=== PATIENT | male | born 1935 | race Caucasian/White ===

== ENCOUNTER 2017-11-15 13:24 | Inpatient (IN) ==
[2017-11-15] MEDS ORDERED: ALBUTEROL/IPRATROPIUM 2.5mg-0.5mg/3ml NEB IH ONE (13:35)
[2017-11-15] MEDS ORDERED: MORPHINE SULFATE 2mg INJECTION IVP ONE (13:44)
[2017-11-15] MEDS: SALINE FLUSH 10ml SYRINGE IVF PRN ×2 (14:01→21:52)
[2017-11-15] MEDS ORDERED: SALINE FLUSH 10ml SYRINGE ONE (14:03)
[2017-11-15] MEDS ORDERED: IOHEXOL 350mg/ml 75ml INJECTION ONE (14:03)
--- OUTSIDE RECORDS SUMMARY | 2017-11-15 14:20 | External Medical Summary | Referral Summary ---
:1935 Author Organization [facility] Address [address] [facility] [address] [place] [address] Care Team Providers Name Role Phone AndreaDavid james Dominik Primary Care Physician Emir Chew Primary Care Physician Encounter VC Date(s): 08/23/17 - 08/23/17 [facility] [address] [facility], [facility] [address] [place] [address] Discharge Disposition: 01-Home or Self Care Attending Physician: Mandy Garcia APRN Admitting Physician: Mandy Garcia APRN Problem List Condition Effective Dates Status Health Status Informant Acute pain(Confirmed) Active At risk of pressure sore(Confirmed) Active Atrial fibrillation(Confirmed) Active Bleeding precautions(Confirmed)1 Active Chronic obstructive pulmonary Active disease (COPD)(Confirmed) CHF (congestive heart Active patient failure)(Confirmed) Fluid imbalance(Confirmed)2 Active Impaired gas exchange(Confirmed)3 Active Knowledge deficit(Confirmed)4 Active Colon cancer, stage III(Confirmed) Resolved Obesity(Confirmed) Active patient Prostate cancer - radiation therapy Resolved & lupron(Confirmed) TIA (transient ischemic Active patient attack)(Confirmed) 1Problem added automatically by system based on initiation of Bleeding Precautions Plan of [id number] added automatically by system based on initiation of Fluid Volume Imbalance Plan of [id number] added automatically by system based on initiation of Impaired Gas Exchange Plan of [id number] added automatically by system based on initiation of Knowledge Deficit Plan of Care Allergies, Adverse Reactions, Alerts Substance Reaction Severity Status cefadroxil Active glycerin Active mineral oil Active Benzalkonium Chloride Active Petroleum Jelly Active Shark Oil Active Pramoxine Hydrochloride Active Phenylephrine HCl Active Medications Advair Diskus 500 mcg-50 mcg inhalation powder 1 puffs, Inhalation, BID, # 28 Each, 1 Refill(s), Pharmacy: [id number] Start Date: 09/06/16 Status: Orderedamoxicillin 500 mg oral capsule 500 mg 1 caps, Oral, TIDWM, X 7 days, # 21 caps, 0 Refill(s) Start Date: 08/21/17 Stop Date: 08/28/17 Status: Orderedaspirin 81 mg oral delayed release tablet 81 mg 1 tabs, Oral, Daily, # 30 tabs, 0 Refill(s), other reason (Rx) Start Date: 08/21/17 Status: Orderedbumetanide 1 mg oral tablet 1 mg 1 tabs, Oral, BID, # 60 tabs, 0 Refill(s) Start Date: 08/21/17 Status: Ordereddocusate sodium 100 mg oral capsule 100 mg 1 caps, Oral, BID, as needed for constipation, 0 Refill(s) Start Date: 08/20/17 Status: OrderedFlomax 0.4 mg oral capsule 0.4 mg 1 caps, Oral, Daily, # 30 caps, 0 Refill(s) Start Date: 08/21/17 Status: Orderedloratadine 10 mg oral tablet 10 mg 1 tabs, Oral, Daily, 0 Refill(s) Start Date: 08/13/17 Status: OrderedMiraLax 17 g 1 packets, Oral, Daily, 0 Refill(s) Start Date: 08/20/17 Status: Orderedmultivitamin 1, Oral, Daily, 0 Refill(s) Start Date: 09/06/16 Status: Orderedpantoprazole 40 mg oral delayed release tablet 40 mg 1 tabs, Oral, BID Start Date: 08/13/17 Status: OrderedProAir HFA 90 mcg/inh inhalation aerosol 2 puffs, Inhalation, QID, as needed for wheezing Start Date: 08/13/17 Status: Orderedsenna 8.6 mg oral tablet 8.6 mg 1 tabs, Oral, BID, as needed for constipation, 0 Refill(s) Start Date: 08/20/17 Status: OrderedSpiriva 18 mcg inhalation capsule 18 mcg 1 caps, Inhalation, Daily Start Date: 08/13/17 Status: OrderedTylenol Extra Strength 500 mg oral tablet 500 mg 1 tabs, Oral, qAM, 0 Refill(s) Start Date: 08/13/17 Status: OrderedVitamin B12 1,000 mcg, Oral, Daily, 0 Refill(s) Start Date: 09/06/16 Status: OrderedVitamin C 250 mg oral tablet 250 mg 1 tabs, Oral, Daily, 0 Refill(s) Start Date: 09/06/16 Status: Orderedwarfarin 5 mg oral tablet 5 mg 1 tabs, Oral, Daily, 0 Refill(s) Start Date: 08/13/17 Status: Ordered Immunizations Given and Recorded Vaccine Date Status Refusal Reason influenza virus vaccine, inactivated 07/25/15 Given tetanus/diphth/pertuss (Tdap) adult/adol 11/27/12 Recorded Procedures Procedure Date Related Diagnosis Body Site Status Influenza1 2014 Completed Laparoscopic right hemicolectomy 12/25/12 Completed Colonoscopy2 07/24/12 Completed Deep vein thrombosis3 2004 Completed Herniorrhaphy 2002 Completed Prostate biopsy sample4 2002 Completed Bilateral Cataract extraction1988 Completed Vasectomy 1975 Completed Herniorrhaphy 1974 Completed Tonsillectomy 1964 Completed Colonoscopy, EGD Completed Incisional hernia, small bowel Completed resection Lipoma biopsy sample6 Completed 1Hospitalization for influenza and COPD exacerbation and Escherichia coli urinary tract infection.2Jmark Pedersen MD3Hospitalized for treatment.4Prostate cancer. He then received radiation therapy and Lupron [id number] 2 lipomas removed in the past. Social History Social History Type Response Smoking Status Current every day smoker; Type: Cigarettes; Tobacco use per day : 1 Pack entered on: 09/20/16 Assessment and Plan Extracted from: Title: HF - In-home services Author: Anaid Duque [facility] [place]: 08/23/17 Met with Morgan and his daughter Shayna. Shayna has been paying for a public policy professor b/c they did not know he had coverage with his insurance. He receives $721 in SS and $46 in SSI. He does not have any other income. He has no pets and needs assistance with all ADLS. He said it take him 30 mins to put on each sock. Referral made to [facility] Act and HCBS - Frail and Elderly Waiver. Morgan was frustrated that no one had ever told him that he could qualify for services. Called his daughter- Shayna [phone] and left a message letting her know that the referral was placed to both programs.
--- OUTSIDE RECORDS SUMMARY | 2017-11-15 14:20 | External Medical Summary | Referral Summary ---
:1935 Author Organization [facility] Address [address] [place] [address] Care Team Providers Name Role Phone David Montoya V Primary Care Physician Encounter VC Date(s): 11/21/16 - 11/21/16 [facility] [address] [place] [address] [place] Discharge Diagnosis: Lower urinary tract symptoms (LUTS) Discharge Disposition: 01-Home or Self Care Attending Physician: Juan Chase MD Admitting Physician: Juan Chase MD Vital Signs Most recent to oldest [Reference Range]: 1 Peripheral Pulse Rate [60-100 bpm] 84 bpm (11/21/16 2:36 PM) Blood Pressure [90-140/60-90 mmHg] 140/80 mmHg (11/21/16 2:36 PM) Problem List Condition Effective Dates Status Health Status Informant At risk of pressure sore(Confirmed) Active Atrial fibrillation(Confirmed) Active Bleeding precautions(Confirmed)1 Active Chronic obstructive pulmonary Active disease (COPD)(Confirmed) Fluid imbalance(Confirmed)2 Active Impaired gas exchange(Confirmed)3 Active Colon cancer, stage III(Confirmed) Resolved Obesity(Confirmed) Active patient Prostate cancer - radiation therapy Resolved & lupron(Confirmed) 1Problem added automatically by system based on initiation of Bleeding Precautions Plan of [id number] added automatically by system based on initiation of Fluid Volume Imbalance Plan of [id number] added automatically by system based on initiation of Impaired Gas Exchange Plan of Care Allergies, Adverse Reactions, Alerts Substance Reaction Severity Status Benzalkonium Chloride Active cefadroxil Active glycerin Active mineral oil Active Petroleum Jelly Active Phenylephrine HCl Active Pramoxine Hydrochloride Active Shark Oil Active Medications Advair Diskus 500 mcg-50 mcg inhalation powder 1 puffs, Inhalation, BID, # 28 Each, 1 Refill(s), Pharmacy: [id number] Start Date: 09/06/16 Status: OrderedamLODIPine 5 mg oral tablet See Instructions, TAKE 1 TABLET BY MOUTH DAILY, # 90 tabs, eRx: [id number] Start Date: 09/28/16 Status: Orderedaspirin-dipyridamole 25 mg-200 mg oral capsule, extended release See Instructions, TAKE 1 CAPSULE BY MOUTH TWICE DAILY( EVERY TWELVE HOURS), # 180 caps, 1 Refill(s),eRx: [id number] Start Date: 10/23/16 Status: Orderedcyanocobalamin 1000 mcg/mL injectable solution 1,000 mcg 1 mL, IntraMuscular, qMonth, # 13 mL, 0 Refill(s) Start Date: 08/04/15 Stop Date: 08/03/16 Status: Orderedfolic acid 1 mg oral tablet 1 mg 1 tabs, Oral, Daily, # 30 tabs, 0 Refill(s), Pharmacy: [facility] [id number], 1 tabs Oral Daily Start Date: 07/29/15 Status: Orderedmultivitamin 1, Oral, Daily, 0 Refill(s) Start Date: 09/06/16 Status: Orderedpantoprazole 40 mg oral delayed release tablet See Instructions, TAKE 1 TABLET BY MOUTH TWICE DAILY, # 180 tabs, eRx: [id number] Start Date: 08/23/16 Status: OrderedProAir HFA 90 mcg/inh inhalation aerosol See Instructions, INHALE 2 PUFFS INTO LUNGS FOUR TIMES DAILY NEEDED FOR WHEEZING, # 34 g, 2 Refill(s), eRx: [facility] [id number], INHALE 2 PUFFS INTO LUNGS FOUR TIMES DAILY NEEDED FOR WHEEZING Start Date: 01/31/16 Status: OrderedSpiriva 18 mcg inhalation capsule See Instructions, USE ONE INHALATION BY MOUTH EVERY DAY, # 30 caps, eRx: [facility] [id number] Start Date: 09/28/16 Status: OrderedVitamin B12 1,000 mcg, Oral, Daily, 0 Refill(s) Start Date: 09/06/16 Status: OrderedVitamin C 250 mg oral tablet 250 mg 1 tabs, Oral, Daily, 0 Refill(s) Start Date: 09/06/16 Status: Orderedwarfarin 5 mg oral tablet See Instructions, TAKE 1 TABLET BY MOUTH FIVE DAYS PER WEEK THEN TAKE 1& 1/ 2 TABLETS THE OTHER 2DAYS, # 90 tabs, 3 Refill(s), Pharmacy: [id number], TAKE 1 TABLET BY MOUTH FIVE DAYSPER WEEK THEN TAKE 1& 1/2 TABLETS THE OTHER 2 DAYS Start Date: 08/29/16 Status: Ordered Results No data available for this section Immunizations Given and Recorded Vaccine Date Status Refusal Reason tetanus/diphth/pertuss (Tdap) adult/adol 11/27/12 Recorded influenza virus vaccine, inactivated 07/25/15 Given Procedures Procedure Date Related Diagnosis Body Site Influenza1 2014 Laparoscopic right hemicolectomy 12/25/12 Colonoscopy 07/24/12 Deep vein thrombosis2 2004 Herniorrhaphy 2002 Prostate biopsy sample3 2002 Bilateral Cataract extraction4 1988 Vasectomy 1975 Herniorrhaphy 1974 Tonsillectomy 1964 Colonoscopy, EGD Incisional hernia, small bowel resection Lipoma biopsy sample5 1Hospitalization for influenza and COPD exacerbation and Escherichia coli urinary tract infection.2Hospitalized for treatment.3Prostate cancer. He then received radiation therapy and Lupron [id number] 2 lipomas removed in the past. Social History Social History Type Response Smoking Status Current every day smoker; Type: Cigarettes; Tobacco use per day : 1 Pack Assessment and Plan Extracted from: Title: Office Visit Note Author: Juan Chase MD Date: 11/21/16 Assessment/Plan 81 yo M with ahx of prostate cancer, LUTS possibly secondary to urethral stricture and hematuria. 1.Lower urinary tract symptoms (LUTS) Patient declined cystoscopy for hematuria work up. PVR is 0 mls. F/u in 6 months for PVR.
--- OUTSIDE RECORDS SUMMARY | 2017-11-15 14:20 | External Medical Summary | Clinical Summary ---
:1935 Author Organization [facility] Address [address] [place] [address] Care Team Providers Name Role Phone Unavailable Primary Care Provider Unavailable Allergies Active Allergy Reactions Severity Noted Date Comments Cefadroxil Monohydrate Swelling DURICEF Current Medications Prescription Sig. Disp. Refills Start Date End Date Status lisinopril One orally daily 90 1 05/31/2010 Active (PRINIVIL,ZESTRIL) 20 MG tablet dipyridamole-aspirin One orally twice 180 0 01/03/2011 Active (AGGRENOX) 25-200 MG daily per 12 hr capsule tiotropium (SPIRIVA inhale 1 capsule 1 6 02/18/2010 Active HANDIHALER) 18 MCG (18MCG) by inhalation capsule INHALATION route every day fluticasone-salmeterol inhale 1 puff by 1 6 03/30/2010 Active (ADVAIR DISKUS) 250-50 INHALATION route 2 MCG/DOSE AEPB times every day albuterol (PROAIR HFA) inhale 2 puff by 1 2 06/28/2010 Active 108 (90 BASE) MCG/ACT inhalation route 4 inhaler times every day as needed for shortness of breath .reconcile (MEDICATION No Sig 1 0 10/18/2012 Active LIST IMPORTED) Active Problems Not on file Immunizations Name Dates Previously Given Next Due Influenza IIV3 PFree 02/28/2010 Family History Medical History Relation Name Comments Other Other Mother - Cause of :Diabetes (Type II) Other Other Father - Cause of :Cancer, lung Relation Name Status Comments Father (Age 75) Mother (Age 85) Other Other Social History Tobacco Use Types Packs/Day Years Used Date Current Every Day Smoker Comments: Smoking History Packs/day: Unknown/Cigarettes/2 packs Sex Assigned at Date Recorded Not on file Last Filed Vital Signs Vital Sign Reading Time Taken Blood Pressure 130/80 02/28/2010 10:46 AM CDT Pulse - - Temperature - - Respiratory Rate - - Oxygen Saturation - - Inhaled Oxygen Concentration - - Weight 120.2 kg (265 lb) 02/28/2010 10:46 AM CDT Height - - Body Mass Index - - Plan of Treatment Health Maintenance Due Date Last Done Comments DTaP,Tdap,and Td Vaccines (1 - Tdap) 1954 Zoster Recombinant Vaccine (RZV,Shingrix) (1 of 2 - 1985 [facility] 2 Dose Standard) Pneumo-Adult (1 of 2 - PCV13) 2000 Influenza Vaccine (#1) 2017 02/28/2010 Results Not on filefrom Last 3 Months
--- OUTSIDE RECORDS SUMMARY | 2017-11-15 14:20 | External Medical Summary | Referral Summary ---
:1935 Author Organization [facility] Address [address] [facility] [address] [place] [address] Encounter VC Date(s): 10/23/17 - 10/23/17 [facility] [address] [facility] [address] [place] [address] Discharge Disposition: 01-Home or Self Care Attending Physician: Mandy Garcia APRN Admitting Physician: Mandy Garcia APRN Vital Signs Most recent to oldest [Reference Range]: 1 Apical Heart Rate [60-100 bpm] 85 bpm (10/23/17 1:36 PM) Respiratory Rate [14-20 br/min] 18 br/min (10/23/17 1:36 PM) Blood Pressure [90-140/60-90 mmHg] 85/51 mmHg *LOW* (10/23/17 1:36 PM) SpO2 94 % (10/23/17 1:36 PM) Problem List Condition Effective Dates Status [...] on initiation of Bleeding Precautions Plan of [id number] added automatically by system based on initiation of Fluid Volume Imbalance Plan of [id number] added automatically by system based on initiation of Impaired Gas Exchange Plan of [id number] added automatically by system based on initiation of Knowledge Deficit Plan of Care Allergies, Adverse Reactions, Alerts Substance Reaction Severity Status cefadroxil Active glycerin Active mineral oil Active Benzalkonium Chloride Active Petroleum Jelly Active Shark Oil Active Pramoxine Hydrochloride Active Phenylephrine HCl Active Medications Advair Diskus 500 mcg-50 mcg inhalation powder 1 puffs, Inhalation, BID, # 28 Each, 1 Refill(s), Pharmacy: [id number] Start Date: 09/06/16 Status: Orderedaspirin 81 mg oral delayed release [...] He then received radiation therapy and Lupron [id number] 2 lipomas removed in the past. Social History Social History Type Response Smoking Status Current every day smoker; Type: Cigarettes; Tobacco use per day : 1 Pack entered on: 09/20/16 Assessment and Plan Extracted from: Title: HF- DME Author: Anaid Duque [facility] [place] Date: 10/23/17 Received request from [employer] to look into a toilet seat riser with handles and a grabber. Morgan uses [facility] for his resp. needs. Called [facility] and spoke with Dinorah. She confirmed that toilet seat risers and grabbers are not covered by Medicare/ Medicaid. Toilet seat risers is $60.20 and the grabber for a 26" is $20.65 and 32" is $ 21.85. Called both [employer] and [employer] to see if they have one available. Left a message at both agencies. Told Elpidio- will call him once we hear back from the medical loan facilities. He said that he priced one at [employer] for the seat riser that was $50.
--- OUTSIDE RECORDS SUMMARY | 2017-11-15 14:20 | External Medical Summary | Referral Summary ---
:1935 Author Organization [facility] Address [address] [place] [address] [place] [address] Care Team Providers Name Role Phone David Montoya V Primary Care Physician Encounter VC Date(s): 09/20/16 - 09/20/16 [facility] [address] [place] [address] [place] [address] [place] Discharge Diagnosis: Hematuria Discharge Diagnosis: Urethral stricture Discharge Disposition: 01-Home or Self Care Attending Physician: Juan Chase MD Admitting Physician: Juan Chase MD Vital Signs Most recent to oldest [Reference Range]: 1 Blood Pressure [90-140/60-90 mmHg] 136/78 mmHg (09/20/16 2:52 PM) Problem List Condition Effective Dates Status [...] on initiation of Bleeding Precautions Plan of [id number] added automatically by system based on initiation of Fluid Volume Imbalance Plan of [id number] added automatically by system based on initiation of Impaired Gas Exchange Plan of Care Allergies, Adverse Reactions, Alerts Substance Reaction Severity Status Benzalkonium Chloride Active cefadroxil Active glycerin Active mineral oil Active Petroleum Jelly Active Phenylephrine HCl Active Pramoxine Hydrochloride Active Shark Oil Active Medications Advair Diskus 500 mcg-50 mcg inhalation powder 1 puffs, Inhalation, BID, # 28 Each, 1 Refill(s), Pharmacy: [facility] [id number] Start Date: 09/06/16 Status: OrderedamLODIPine 5 mg oral tablet See Instructions, TAKE 1 TABLET BY MOUTH DAILY, # 90 tabs, 1 Refill(s), eRx: [facility] [id number] Start Date: 04/10/16 Status: Orderedaspirin-dipyridamole 25 mg-200 mg oral capsule, extended release See Instructions, TAKE 1 CAPSULE BY MOUTH TWICE DAILY( EVERY TWELVE HOURS), # 180 caps, 2 Refill(s),eRx: [facility] [id number], TAKE 1 CAPSULE BY MOUTH TWICE DAILY( EVERY TWELVE HOURS) Start Date: 01/31/16 Status: Orderedcyanocobalamin 1000 mcg/mL injectable solution 1,000 mcg 1 mL, IntraMuscular, qMonth, # 13 mL, 0 Refill(s) Start Date: 08/04/15 Stop Date: 08/03/16 Status: Ordereddoxycycline hyclate 100 mg oral tablet 100 mg 1 tabs, Oral, BID, # 20 tabs, 0 Refill(s), Pharmacy: [facility] [id number], 1 tabs Oral BID Start Date: 09/08/16 Stop Date: 10/09/16 Status: Orderedfolic acid 1 mg oral tablet 1 mg 1 tabs, Oral, Daily, # 30 tabs, 0 Refill(s), Pharmacy: [facility] [id number], 1 tabs Oral Daily Start Date: 07/29/15 Status: Orderedmultivitamin 1, Oral, Daily, 0 Refill(s) Start Date: 09/06/16 Status: Orderedpantoprazole 40 mg oral delayed release tablet See Instructions, TAKE 1 TABLET BY MOUTH TWICE DAILY, # 180 tabs, eRx: [facility] [id number] Start Date: 08/23/16 Status: OrderedProAir HFA 90 mcg/inh inhalation aerosol See Instructions, INHALE 2 PUFFS INTO LUNGS FOUR TIMES DAILY NEEDED FOR WHEEZING, # 34 g, 2 Refill(s), eRx: [facility] [id number], INHALE 2 PUFFS INTO LUNGS FOUR TIMES DAILY NEEDED FOR WHEEZING Start Date: 01/31/16 Status: OrderedSpiriva 18 mcg inhalation capsule See Instructions, USE ONE INHALATION BY MOUTH EVERY DAY, # 30 caps, eRx: [facility] [id number] Start Date: 07/27/16 Status: OrderedVitamin B12 1,000 mcg, Oral, Daily, 0 Refill(s) Start Date: 09/06/16 Status: OrderedVitamin C 250 mg oral tablet 250 mg 1 tabs, Oral, Daily, 0 Refill(s) Start Date: 09/06/16 Status: Orderedwarfarin 5 mg oral tablet See Instructions, TAKE 1 TABLET BY MOUTH FIVE DAYS PER WEEK THEN TAKE 1& 1/ 2 TABLETS THE OTHER 2DAYS, # 90 tabs, 3 Refill(s), Pharmacy: [id number], TAKE 1 TABLET BY MOUTH FIVE DAYSPER [...] He then received radiation therapy and Lupron [id number] 2 lipomas removed in the past. Social History Social History Type Response Smoking Status Current every day smoker; Type: Cigarettes; Tobacco use per day : 1 Pack Assessment and Plan Extracted from: Title: Office Visit Note Author: Juan Chase MD Date: 09/20/16 Assessment/Plan 81 yo M with multiple medical issues. Has hx of prostate cancer, LUTS possibly secondary to urethral stricture and hematuria. 1.Hematuria Will order hematuria work up including Urine analysis and culture to rule out UTI. Urine cytology to evaluate for malignancy CT renal colic to evaluate upper tracts. Will schedule patient for cystoscopy tovisualize bladder. Ordered: CT Renal Colic Pathology Non-Medical Malpractice Paralegal Cytology Order Urinalysis Microscopic Urine Culture 2.Urethral stricture Will obtain CT scan to eval for hydronephrosis Will schedule patient for cystoscopy to eval for urethral stricture or possible bladder neck contracture. Ordered: CT Renal Colic Pathology Non-Medical Malpractice Paralegal Cytology Order Urinalysis Microscopic Urine Culture
--- OUTSIDE RECORDS SUMMARY | 2017-11-15 14:20 | External Medical Summary | Referral Summary ---
:1935 Author Organization [facility] Address [address] [place] [address] Care Team Providers Name Role Phone David Montoya V Primary Care Physician Emir Chew Primary Care Physician Encounter [facility] [id number] Date(s): 08/13/17 - 08/22/17 [facility] [address] [place] [address] [place] Discharge Disposition: 01-Home or Self Care Attending Physician: Brayan Ram MD Admitting Physician: May Noriega MD Vital Signs Most recent to oldest [Reference Range]: 1 Temperature Oral [35.8-37.3 degC] 36.7 degC (08/22/17 11:02 AM) Temperature Temporal Artery [36.3-37.8 degC] 36.5 degC (08/16/17 12:00 PM) Peripheral Pulse Rate [60-100 bpm] 79 bpm (08/22/17 11:02 AM) Heart Rate Monitored [60-100 bpm] 81 bpm (08/21/17 8:16 PM) Respiratory Rate [14-20 br/min] 20 br/min (08/22/17 12:51 PM) Blood Pressure [90-140/60-90 mmHg] 97/59 mmHg (08/22/17 11:02 AM) Mean Arterial Pressure, Cuff 84 mmHg (08/17/17 8:45 PM) Pulse Rate [60-100 bpm] 92 bpm (08/22/17 12:40 PM) SpO2 96 % (08/22/17 11:02 AM) Remote Telemetry Ongoing (08/22/17 9:00 AM) Problem List Condition Effective Dates Status Health [...] on initiation of Bleeding Precautions Plan of [id number] added automatically by system based on initiation of Fluid Volume Imbalance Plan of [id number] added automatically by system based on initiation of Impaired Gas Exchange Plan of [id number] added automatically by system based on initiation of Knowledge Deficit Plan of Care Allergies, Adverse Reactions, Alerts Substance Reaction Severity Status cefadroxil Active glycerin Active mineral oil Active Benzalkonium Chloride Active Petroleum Jelly Active Shark Oil Active Pramoxine Hydrochloride Active Phenylephrine HCl Active Medications Advair Diskus 500 mcg-50 mcg inhalation powder 1 puffs, Inhalation, BID, # 28 Each, 1 Refill(s), Pharmacy: [id number] Start Date: 09/06/16 Status: Orderedamoxicillin 500 mg [...] 0 Refill(s) Start Date: 08/13/17 Status: Ordered Results Blood Gases Most recent to oldest [Reference Range]: 1 pH [7.35-7.45] 7.42 (08/20/17 1:15 PM) pCO2 Art [35-45 mmHg] 64 mmHg *HHI* (08/20/17 1:15 PM) pO2 Art [80-100 mmHg] 84 mmHg (08/20/17 1:15 PM) Bicarbonate [22-26 mEq/L] 41 mEq/L *HI* (08/20/17 1:15 PM) Base Excess Art [0-2] 14 *HI* (08/20/17 1:15 PM) O2 Sat Art [90.0-97.0 %] 96.9 % (08/20/17 1:15 PM) LPM Art 3.00 L/min (08/20/17 1:15 PM) O2 Panel SEE BELOW 1 (08/20/17 1:15 PM) PIP 15 (08/14/17 9:34 AM) Set Rate 14 br/min (08/14/17 9:34 AM) FiO2 Art [0-100] 45 (08/14/17 9:34 AM) EPAP 5 (08/14/17 9:34 AM) 1Result Comment: High Flow Nasal CannulaHematology Most recent to oldest [Reference Range]: 1 WBC [4.8-10.8 10*3/uL] 7.0 10*3/uL (08/22/17 4:53 AM) RBC [4.60-6.20] 3.51 *LOW* (08/22/17 4:53 AM) Hgb [14.0-18.0 gm/dL] 9.5 gm/dL *LOW* (08/22/17 4:53 AM) Hct [42.0-52.0 %] 30.7 % *LOW* (08/22/17 4:53 AM) MCV [82.0-99.0 fL] 87.5 fL (08/22/17 4:53 AM) MCH [27.0-32.0 pg] 27.1 pg (08/22/17 4:53 AM) MCHC [32.0-36.0 gm/dL] 30.9 gm/dL *LOW* (08/22/17 4:53 AM) RDW [11.5-14.5 %] 14.3 % (08/22/17 4:53 AM) Platelet [150-400 10*3/uL] 207 10*3/uL (08/22/17 4:53 AM) MPV [9.4-12.3 fL] 10.3 fL (08/22/17 4:53 AM) Immature Granulocytes [0.0-1.0 %] 0.5 % (08/21/17 4:52 AM) Neutrophils [51-75 %] 71 % (08/21/17 4:52 AM) Lymphocytes [20-46 %] 10 % *LOW* (08/21/17 4:52 AM) Monocytes [4-11 %] 17 % *HI* (08/21/17 4:52 AM) Eosinophils [0-4 %] 2 % (08/21/17 4:52 AM) Basophils [0-2 %] 0 % (08/21/17 4:52 AM) Neutro Absolute [1.90-7.00] 5.29 (08/21/17 4:52 AM) Lymph Absolute [0.80-3.30] 0.71 *LOW* (08/21/17 4:52 AM) [place] Absolute [0.30-1.00] 1.29 *HI* (08/21/17 4:52 AM) Eos Absolute [0.00-0.50] 0.16 (08/21/17 4:52 AM) Baso Absolute [0.00-0.20] 0.01 (08/21/17 4:52 AM) Nucleated RBC Automated [0 /100 WBC] 0.0 /100 WBC (08/21/17 4:52 AM) Coagulation Most recent to oldest [Reference Range]: 1 INR [0.9-1.2] 2.2 *HI* (08/22/17 4:52 AM) Chemistry Most recent to oldest [Reference Range]: 1 Sodium Lvl [136-144 mEq/L] 140 mEq/L (08/22/17 4:53 AM) Potassium Lvl [3.6-5.1 mEq/L] 3.9 mEq/L (08/22/17 4:53 AM) Chloride [99-109 mEq/L] 96 mEq/L *LOW* (08/22/17 4:53 AM) CO2 [22-32 mEq/L] 37 mEq/L *HI* (08/22/17 4:53 AM) AGAP [3-20 mEq/L] 7 mEq/L (08/22/17 4:53 AM) BUN [4-20 mg/dL] 30 mg/dL *HI* (08/22/17 4:53 AM) Glucose Lvl [70-100 mg/dL] 101 mg/dL *HI* (08/22/17 4:53 AM) Creatinine Lvl [0.64-1.27 mg/dL] 1.60 mg/dL *HI* (08/22/17 4:53 AM) eGFR [>60 mL/min] 42 mL/min 1 *ABN* (08/22/17 4:53 AM) Calcium Lvl [8.6-10.0 mg/dL] 8.3 mg/dL *LOW* (08/22/17 4:53 AM) Albumin Lvl [3.5-4.8 gm/dL] 2.6 gm/dL *LOW* (08/21/17 4:52 AM) Total Protein [6.1-7.9 gm/dL] 5.4 gm/dL *LOW* (08/15/17 12:02 PM) Globulin [1.9-4.3 gm/dL] 2.4 gm/dL (08/13/17 7:35 PM) ALT [17-63 U/L] 11 U/L *LOW* (08/13/17 7:35 PM) AST [15-41 U/L] 16 U/L (08/13/17 7:35 PM) Alk Phos [26-104 U/L] 47 U/L (08/13/17 7:35 PM) Bili Total [0.2-1.2 mg/dL] 0.5 mg/dL 2 (08/13/17 7:35 PM) Magnesium Lvl [1.8-2.5 mg/dL] 1.6 mg/dL *LOW* (08/22/17 4:53 AM) Phosphorus [2.4-4.7 mg/dL] 3.8 mg/dL 3 (08/21/17 4:52 AM) BNP [0-99 pg/mL] 300 pg/mL *HI* (08/13/17 7:35 PM) Troponin [<0.06 ng/mL] <0.05 ng/mL (08/13/17 7:35 PM) TSH with Reflex Free T4 [0.35-5.50 mcIU/mL] 1.17 mcIU/mL (08/15/17 4:37 AM) 1Result Comment: Multiply eGFR results by 1.21 for race.2Result Comment: Naproxen, specifically the metabolite O-desmethylnaproxen, may cause spurious elevation in Total Bilirubin levels.3Result Comment: High dosages of liposomal Amphotericin B (AmBisome) therapy or other drug preparations that use a liposomal envelope to facilitate drug delivery may cause falsely elevated results for phosphorus.Urinalysis Most recent to oldest [Reference Range]: 1 UA Color Yellow (08/21/17 4:13 AM) UA Appear Clear (08/21/17 4:13 AM) UA pH [5.0-8.0] 6.0 (08/21/17 4:13 AM) UA Leuk Est [Negative] Trace *ABN* (08/21/17 4:13 AM) UA Nitrite [Negative] Negative (08/21/17 4:13 AM) UA Protein [Negative] Negative (08/21/17 4:13 AM) UA Glucose [Negative] Negative (08/21/17 4:13 AM) UA Ketones [Negative] Negative (08/21/17 4:13 AM) UA Urobilinogen [<1.0] Negative (08/21/17 4:13 AM) UA Bili [Negative] Negative (08/21/17 4:13 AM) UA Blood [Negative] Pos 1+ *ABN* (08/21/17 4:13 AM) UA Spec Grav [1.003-1.030] 1.010 (08/21/17 4:13 AM) Type Clean Catch (08/21/17 4:13 AM) UA WBC [0-4] 5-10 *ABN* (08/21/17 4:13 AM) UA RBC [0-2] 5-10 *ABN* (08/21/17 4:13 AM) Epithelial Cells None Seen (08/21/17 4:13 AM) UA Bacteria Rare (08/21/17 4:13 AM) UA Hyal Cast [0-3] 7-12 *ABN* (08/13/17 11:00 PM) UA Mucous Present (08/13/17 11:00 PM) Microbiology Reports TEST:Urine Culture STATUS:Auth (Verified) BODY SITE: SOURCE:Urine COLLECTED DATE/TIME:08/13/17 11:00 PMUrine Culture- - - - - - - Positive urine culture (even if >100,000 cfu/ml) without presence of symptoms does not require antibiotic treatment unless the patient is or undergoing urinary surgery. Please document as bacteriuria. - Enterococcus faecalis 50-100,000 cfu/ml ORGANISM:Enterococcus faecalis Immunizations Given and Recorded Vaccine Date Status Refusal Reason influenza virus vaccine, inactivated 07/25/15 Given tetanus/diphth/pertuss (Tdap) adult/adol 11/27/12 Recorded Procedures Procedure Date Related Diagnosis Body Site Status Arterial puncture, withdrawal of blood 08/20/17 Completed for diagnosis Arterial puncture, withdrawal of blood 08/14/17 Completed for diagnosis Arterial puncture, withdrawal of blood 08/13/17 Completed for diagnosis Influenza1 2014 Completed Laparoscopic right hemicolectomy 12/25/12 [...] He then received radiation therapy and Lupron [id number] 2 lipomas removed in the past. Social History Social History Type Response Smoking Status Current every day smoker; Type: Cigarettes; Tobacco use per day : 1 Pack entered on: 09/20/16
--- OUTSIDE RECORDS SUMMARY | 2017-11-15 14:20 | External Medical Summary | Referral Summary ---
:1935 Author Organization [facility] Address [address] [place] [address] Care Team Providers Name Role Phone No PCP, States Primary Care Physician Encounter [facility] [id number] Date(s): 10/24/17 - 10/29/17 [facility] [address] [place] [address] [phone] Discharge Disposition: 01-Home or Self Care Attending Physician: Elisa Greene MD Admitting Physician: Elisa Greene MD Vital Signs Most recent to oldest [Reference Range]: 1 Temperature Axillary [35.2-36.7 degC] 36.4 degC (10/29/17 7:51 AM) Temperature Oral [35.8-37.3 degC] 36.5 degC (10/29/17 4:30 AM) Temperature Tympanic [35.8-38.1 degC] 36.7 degC (10/24/17 6:41 PM) Temperature Temporal Artery [36.3-37.8 degC] 36.4 degC (10/26/17 8:00 AM) Peripheral Pulse Rate [60-100 bpm] 66 bpm (10/29/17 7:51 AM) Heart Rate Monitored [60-100 bpm] 87 bpm (10/29/17 12:52 PM) Respiratory Rate [14-20 br/min] 20 br/min (10/29/17 4:44 PM) Blood Pressure [90-140/60-90 mmHg] 125/71 mmHg (10/29/17 7:00 AM) Mean Arterial Pressure, Cuff 99 mmHg (10/28/17 9:00 PM) Pulse Rate [60-100 bpm] 84 bpm (10/29/17 4:52 PM) SpO2 97 % (10/29/17 7:51 AM) Remote Telemetry Ongoing (10/25/17 4:30 AM) Problem List Condition Effective Dates Status [...] on initiation of Bleeding Precautions Plan of [id number] added automatically by system based on initiation of Fluid Volume Imbalance Plan of [id number] added automatically by system based on initiation of Impaired Gas Exchange Plan of [id number] added automatically by system based on initiation of Knowledge Deficit Plan of Care Allergies, Adverse Reactions, Alerts Substance Reaction Severity Status cefadroxil Active glycerin Active mineral oil Active Benzalkonium Chloride Active Petroleum Jelly Active Shark Oil Active Pramoxine Hydrochloride Active Phenylephrine HCl Active Medications Advair Diskus 500 mcg-50 mcg inhalation powder 1 puffs, Inhalation, BID, # 28 Each, 1 Refill(s), Pharmacy: [id number] Start Date: 09/06/16 Status: Orderedapixaban 5 mg oral tablet 5 mg 1 tabs, Oral, BID, Start on 11/03/17, # 60 tabs, 0 Refill(s), Pharmacy: [facility] [id number], 1 tabs Oral BID,Instr:Start on 11/03/17 Start Date: 10/29/17 Status: Orderedaspirin 81 mg oral delayed release tablet 81 mg 1 tabs, Oral, Daily, # 30 tabs, 0 Refill(s), other reason (Rx) Start Date: 08/21/17 Status: OrderedAugmentin 500 mg-125 mg oral tablet 1 tabs, Oral, q12hr (scheduled), # 4 tabs, 0 Refill(s), Pharmacy: [facility] [id number] Start Date: 10/29/17 Stop Date: 10/31/17 Status: Orderedbumetanide 1 mg oral tablet 1 mg 1 tabs, Oral, Daily, # 30 tabs, 0 Refill(s), other reason (Rx) Start Date: 10/29/17 Status: Ordereddocusate sodium 100 mg oral capsule 100 mg 1 caps, Oral, BID, as needed for constipation, 0 Refill(s) Start Date: 08/20/17 Status: OrderedEliquis 5 mg oral tablet 10 mg 2 tabs, Oral, BID, # 20 tabs, 0 Refill(s), [facility] [address], Complete 5 mmore days of 10 mg bid then change to 5 mg bid, 2 tabs Oral BID Start Date: 10/29/17 Status: OrderedFlomax 0.4 mg oral capsule 0.4 [...] tabs, Oral, BID Start Date: 08/13/17 Status: OrderedpredniSONE 10 mg oral tablet See Instructions, 3 tabs PO qAM x 3 days then 2 tabs PO qAM x 3 days then 1 tab PO qAM x 3 days thenstop, # 18 tabs, 0 Refill(s), Pharm[facility]: [facility] [address], 3 tabs PO qAM x 3 days then 2 tabs PO qAM x 3 days then 1 tab PO qAM x 3 days then... Start Date: 10/29/17 Stop Date: 11/08/17 Status: OrderedProAir HFA 90 mcg/inh inhalation aerosol [...] Daily, 0 Refill(s) Start Date: 09/06/16 Status: Ordered Results Blood Gases Most recent to oldest [Reference Range]: 1 pH [7.35-7.45] 7.36 (10/26/17 7:43 AM) pCO2 Art [35-45 mmHg] 55 mmHg *HI* (10/26/17 7:43 AM) pO2 Art [80-100 mmHg] 98 mmHg (10/26/17 7:43 AM) Bicarbonate [22-26 mEq/L] 31 mEq/L *HI* (10/26/17 7:43 AM) Base Excess Art [0-2] 4 *HI* (10/26/17 7:43 AM) O2 Sat Art [90.0-97.0 %] 97.4 % *HI* (10/26/17 7:43 AM) LPM Art 4.00 L/min (10/26/17 7:43 AM) O2 Panel Nasal Cannula (10/26/17 7:43 AM) Hematology Most recent to oldest [Reference Range]: 1 WBC [4.8-10.8 10*3/uL] 8.4 10*3/uL (10/29/17 6:15 AM) RBC [4.60-6.20] 3.38 *LOW* (10/29/17 6:15 AM) Hgb [14.0-18.0 gm/dL] 9.1 gm/dL *LOW* (10/29/17 6:15 AM) Hct [42.0-52.0 %] 28.9 % *LOW* (10/29/17 6:15 AM) MCV [82.0-99.0 fL] 85.5 fL (10/29/17 6:15 AM) MCH [27.0-32.0 pg] 26.9 pg *LOW* (10/29/17 6:15 AM) MCHC [32.0-36.0 gm/dL] 31.5 gm/dL *LOW* (10/29/17 6:15 AM) RDW [11.5-14.5 %] 14.7 % *HI* (10/29/17 6:15 AM) Platelet [150-400 10*3/uL] 288 10*3/uL (10/29/17 6:15 AM) MPV [9.4-12.3 fL] 9.9 fL (10/29/17 6:15 AM) Immature Granulocytes [0.0-1.0 %] 0.2 % (10/24/17 2:37 PM) Neutrophils [51-75 %] 93 % *HI* (10/25/17 6:03 AM) Lymphocytes [20-46 %] 7 % *LOW* (10/25/17 6:03 AM) Monocytes [4-11 %] 1 % *LOW* (10/25/17 6:03 AM) Eosinophils [0-4 %] 0 % (10/25/17 6:03 AM) Basophils [0-2 %] 0 % (10/25/17 6:03 AM) Neutro Absolute [1.90-7.00] 3.81 (10/25/17 6:03 AM) Lymph Absolute [0.80-3.30] 0.29 *LOW* (10/25/17 6:03 AM) [place] Absolute [0.30-1.00] 0.04 *LOW* (10/25/17 6:03 AM) Eos Absolute [0.00-0.50] 0.00 (10/25/17 6:03 AM) Baso Absolute [0.00-0.20] 0.00 (10/25/17 6:03 AM) Nucleated RBC Automated [0 /100 WBC] 0.0 /100 WBC (10/25/17 6:03 AM) Differential Reviewed (10/25/17 6:03 AM) Coagulation Most recent to oldest [Reference Range]: 1 INR [0.9-1.2] 1.6 *HI* (10/29/17 6:15 AM) Chemistry Most recent to oldest [Reference Range]: 1 Sodium Lvl [136-144 mEq/L] 139 mEq/L (10/29/17 6:15 AM) Potassium Lvl [3.6-5.1 mEq/L] 4.2 mEq/L (10/29/17 6:15 AM) Chloride [99-109 mEq/L] 102 mEq/L (10/29/17 6:15 AM) CO2 [22-32 mEq/L] 34 mEq/L *HI* (10/29/17 6:15 AM) AGAP [3-20 mEq/L] 3 mEq/L (10/29/17 6:15 AM) BUN [4-20 mg/dL] 31 mg/dL *HI* (10/29/17 6:15 AM) Glucose Lvl [70-100 mg/dL] 123 mg/dL *HI* (10/29/17 6:15 AM) Creatinine Lvl [0.64-1.27 mg/dL] 1.85 mg/dL *HI* (10/29/17 6:15 AM) eGFR [>60 mL/min] 35 mL/min 1 *ABN* (10/29/17 6:15 AM) Calcium Lvl [8.6-10.0 mg/dL] 8.2 mg/dL *LOW* (10/29/17 6:15 AM) Albumin Lvl [3.5-4.8 gm/dL] 2.9 gm/dL *LOW* (10/26/17 3:09 AM) Total Protein [6.1-7.9 gm/dL] 5.0 gm/dL *LOW* (10/26/17 3:09 AM) Globulin [1.9-4.3 gm/dL] 2.1 gm/dL (10/26/17 3:09 AM) ALT [17-63 U/L] 24 U/L (10/26/17 3:09 AM) AST [15-41 U/L] 26 U/L (10/26/17 3:09 AM) Alk Phos [26-104 U/L] 47 U/L (10/26/17 3:09 AM) Bili Total [0.2-1.2 mg/dL] 0.4 mg/dL 2 (10/26/17 3:09 AM) Iron [65-175 mcg/dL] 40 mcg/dL *LOW* (10/26/17 3:09 AM) TIBC [268-490 mcg/dL] 323 mcg/dL (10/26/17 3:09 AM) Iron Sat [11-46 %] 12 % (10/26/17 3:09 AM) Transferrin [180-329 mg/dL] 217 mg/dL (10/26/17 3:09 AM) Ferritin Lvl [24-340 ng/mL] 30 ng/mL (10/26/17 3:09 AM) Magnesium Lvl [1.8-2.5 mg/dL] 1.9 mg/dL (10/29/17 6:15 AM) BNP [0-99 pg/mL] 287 pg/mL *HI* (10/24/17 2:37 PM) Troponin [<0.06 ng/mL] <0.05 ng/mL (10/24/17 2:37 PM) Vitamin B12 Lvl [213-816 pg/mL] 1452 pg/mL *HI* (10/26/17 10:06 AM) Folate Lvl [7.0-31.4 ng/mL] 13.1 ng/mL (10/26/17 10:06 AM) Lactic Acid-POC [0.5-2.0 mEq/L] 0.5 mEq/L (10/24/17 4:32 PM) Hgb A1c [4.1-5.6 %] 5.9 % *HI* (10/26/17 3:09 AM) eAvg Glucose 122.6 mg/dL (10/26/17 3:09 AM) 1Result Comment: Multiply eGFR results by 1.21 for race.2Result Comment: Naproxen, specifically the metabolite O-desmethylnaproxen, may cause spurious elevation in Total Bilirubin levels.Microbiology Reports TEST:Sputum Culture and Smear STATUS:Auth (Verified) BODY SITE: SOURCE:Sputum COLLECTED DATE/TIME:10/26/17 9:50 PMSputum Culture and Smear-TEST: Respiratory Virus Panel - PCR STATUS:Auth (Verified) BODY SITE: SOURCE:Nasopharyngeal Swab COLLECTED DATE/TIME:10/24/17 9:55 PMRespiratory Virus Panel - PCRNegative for all strains tested. . Specimen tested for the following targets: Influenza A, Influenza A subtype H1, Influenza A subtype H3, Influenza A 2009 H1N1, Influenza B, Respiratory Syncytial Virus subtype A, Respiratory Syncytial Virus subtype B, Adenovirus, Rhinovirus/Enterovirus, Coronavirus, Parainfluenza Virus 1, Parainfluenza Virus 2, Parainfluenza Virus 3, Parainfluenza Virus 4, Human Metapneumovirus, Chlamydia pneumoniae and Mycoplasma pneumoniae.TEST: Blood Culture STATUS:Order in Progress BODY SITE: SOURCE:Blood COLLECTED DATE/TIME:10/24/17 4:42 PMBlood CultureNo growth after 12 hours incubation. Nursing unit/client will be called if growth is detected. -TEST:Blood Culture STATUS:Order in Progress BODY SITE: SOURCE:Blood COLLECTED DATE/TIME:10/24/17 4:27 PMBlood CultureNo growth after 12 hours incubation. Nursing unit/client will be called if growth is detected. - Immunizations Given and Recorded Vaccine Date Status Refusal Reason influenza virus vaccine, inactivated 07/25/15 Given tetanus/diphth/pertuss (Tdap) adult/adol 11/27/12 Recorded Procedures Procedure Date Related Diagnosis Body Site Status Arterial puncture, withdrawal of blood 10/26/17 Completed for diagnosis Arterial puncture, withdrawal of blood 10/24/17 Completed for diagnosis Arterial puncture, withdrawal of blood 10/24/17 Completed for diagnosis Influenza1 2014 Completed Laparoscopic right hemicolectomy 12/25/12 Completed Colonoscopy2 07/24/12 Completed Deep vein thrombosis3 2004 Completed Herniorrhaphy 2002 Completed Prostate biopsy sample4 2002 Completed Bilateral Cataract extraction1988 Completed Vasectomy 1975 Completed Herniorrhaphy 1974 Completed Tonsillectomy 1965 Completed Colonoscopy, EGD Completed Incisional hernia, small bowel Completed resection Lipoma biopsy sample6 Completed 1Hospitalization for influenza and COPD exacerbation and Escherichia coli urinary tract infection.2Jmark Pedersen MD3Hospitalized for treatment.4Prostate cancer. He then received radiation therapy and Lupron [id number] 2 lipomas removed in the past. Social History Social History Type Response Smoking Status Current every day smoker; Type: Cigarettes; Tobacco use per day : 1 Pack entered on: 09/20/16
--- OUTSIDE RECORDS SUMMARY | 2017-11-15 14:21 | External Medical Summary | Referral Summary ---
:1935 Author Organization [facility] Address [address] [place] [address] Encounter VC Date(s): 09/18/17 - 09/18/17 [facility] [address] [place] [address] [phone] Encounter Diagnosis CHF (congestive heart failure) (Discharge Diagnosis) - 09/18/17 Atrial fibrillation (Discharge Diagnosis) - 09/18/17 Chronic obstructive pulmonary disease (COPD) (Discharge Diagnosis) - 09/18/17 Discharge Disposition: 01-Home or Self Care Attending Physician: Mandy Garcia APRN Admitting Physician: Mandy Garcia APRN Vital Signs Most recent to oldest [Reference Range]: 1 Apical Heart Rate [60-100 bpm] 87 bpm (09/18/17 2:36 PM) Respiratory Rate [14-20 br/min] 18 br/min (09/18/17 2:36 PM) Blood Pressure [90-140/60-90 mmHg] 130/69 mmHg (09/18/17 2:36 PM) SpO2 97 % (09/18/17 2:36 PM) Problem List Condition Effective Dates [...] on initiation of Bleeding Precautions Plan of [id number] added automatically by system based on initiation of Fluid Volume Imbalance Plan of [id number] added automatically by system based on initiation of Impaired Gas Exchange Plan of [id number] added automatically by system based on initiation [...] Each, 1 Refill(s), Pharmacy: [facility] [id number] Start Date: 09/06/16 Status: Orderedaspirin 81 mg [...] He then received radiation therapy and Lupron [id number] 2 lipomas removed in the past. Social History Social History Type Response Smoking Status Current every day smoker; Type: Cigarettes; Tobacco use per day : 1 Pack entered on: 09/20/16 Assessment and Plan Extracted from: Title: Heart Failure Clinic Follow Up Author: Mandy Garcia APRN Date : 09/18/17 1.CHF (congestive heart failure) HFpEF Unable toevaluate Diastolic Function on most recent echo Elevated Systolic Pressure of 61 TTE: normal LVEF, thick LV wall, no RWMA, mild to mod MR and TR, mod Dr. Milian - follow up 09/27/2017 (provided appointment details in writing so that he can schedule his transportation) Fluid and Sodium intake monitoring discussed Daily weights - brought weight log for review Continue Bumex Ordered: Office Visit Level 4 Est 28369 2.Atrial fibrillation Rate controlled Scheduled with Dr. Milian - 09/27/2017 Continue Warfarin - managed by PCP Ordered: Office Visit Level 4 Est 29987 3.Chronic obstructive pulmonary disease (COPD) Established with Dr. Harrison - 09/25/2017 (provided appointment details in writing so that he can arrange transportation) He states he is taking his medications but states he is unsure about the Spiriva Continue ProAir, Advair, Spiriva Ordered: Office Visit Level 4 Est 91268 We have reviewed Heart Failure dietary recommendations and salt restrictions. Readiness to learn and preferred learning method assessed. Teach back of Heart Failure recommendations was employed as ind icated. Patient has been instructed in routine weights, and reports weighing daily. They have been instructed to report a weight gain of 5 pounds or more. They are/are not capable of titrating diuretics. Diuretic teach-back has been performed as indicated. Management of acute Heart Failure symptoms have been reviewed. Immunization status, including Influenza and Pneumococcal vaccines have been reviewed. I am concerned about Papito being able to care for himself. He states he has assistance, however then states his situation is bad. Clinic social psychologist was not in today. Will have her contact him by phone to assess his needs.
--- OUTSIDE RECORDS SUMMARY | 2017-11-15 14:21 | External Medical Summary | Referral Summary ---
:1935 [facility] Address [address] [place] [address] [place] [id number] Care Team Providers Name Role Phone David Montoya V Primary Care Physician Encounter VC Date(s): 09/21/16 - 09/21/16 [facility] [place] [id number] [place] Discharge Diagnosis: Right shoulder pain Discharge Diagnosis: Tobacco use Discharge Diagnosis: Atrial fibrillation Discharge Diagnosis: Colon cancer, stage III Discharge Diagnosis: Generalized weakness Discharge Diagnosis: Anticoagulated on Coumadin Discharge Disposition: 01-Home or Self Care Attending Physician: David Montoya MD Admitting Physician: David Montoya MD Vital Signs Most recent to oldest [Reference Range]: 1 Temperature Tympanic [36.6-38.1 degC] 36.7 degC (09/21/16 2:41 PM) Peripheral Pulse Rate [60-100 bpm] 89 bpm (09/21/16 2:41 PM) Blood Pressure [90-140/60-90 mmHg] 122/60 mmHg (09/21/16 2:41 PM) SpO2 93 % (09/21/16 2:41 PM) Problem List Condition Effective Dates Status [...] on initiation of Bleeding Precautions Plan of [id number] added automatically by system based on initiation of Fluid Volume Imbalance Plan of [id number] added automatically by system based on initiation of Impaired Gas Exchange Plan of Care Allergies, Adverse Reactions, Alerts Substance Reaction Severity Status Benzalkonium Chloride Active cefadroxil Active glycerin Active mineral oil Active Petroleum Jelly Active Phenylephrine HCl Active Pramoxine Hydrochloride Active Shark Oil Active Medications Advair Diskus 500 mcg-50 mcg inhalation powder 1 puffs, Inhalation, BID, # 28 Each, 1 Refill(s), Pharmacy: [id number] Start Date: 09/06/16 Status: OrderedamLODIPine 5 mg oral tablet See Instructions, TAKE 1 TABLET BY MOUTH DAILY, # 90 tabs, 1 Refill(s), eRx: [facility] [id number] Start Date: 04/10/16 Status: Orderedaspirin-dipyridamole 25 mg-200 mg oral capsule, extended release See Instructions, TAKE 1 CAPSULE BY MOUTH TWICE DAILY( EVERY TWELVE HOURS), # 180 caps, 2 Refill(s),eRx: [facility] 44218, TAKE 1 CAPSULE BY MOUTH TWICE DAILY( EVERY TWELVE HOURS) Start Date: 01/31/16 Status: Orderedcyanocobalamin 1000 mcg/mL injectable solution 1,000 mcg 1 mL, IntraMuscular, qMonth, # 13 mL, 0 Refill(s) Start Date: 08/04/15 Stop Date: 08/03/16 Status: Orderedfolic acid 1 mg oral tablet 1 mg 1 tabs, Oral, Daily, # 30 tabs, 0 Refill(s), Pharmacy: [facility] [id number], 1 tabs Oral Daily Start Date: 07/29/15 Status: Orderedmultivitamin 1, Oral, Daily, 0 Refill(s) Start Date: 09/06/16 Status: Orderedpantoprazole 40 mg oral delayed release tablet See Instructions, TAKE 1 TABLET BY MOUTH TWICE DAILY, # 180 tabs, eRx: [facility] [id number] Start Date: 08/23/16 Status: OrderedProAir HFA 90 mcg/inh inhalation aerosol See Instructions, INHALE 2 PUFFS INTO LUNGS FOUR TIMES DAILY NEEDED FOR WHEEZING, # 34 g, 2 Refill(s), eRx: [facility] 37317, INHALE 2 PUFFS INTO LUNGS FOUR TIMES DAILY NEEDED FOR WHEEZING Start Date: 01/31/16 Status: OrderedSpiriva 18 mcg inhalation capsule See Instructions, USE ONE INHALATION BY MOUTH EVERY DAY, # 30 caps, eRx: [facility] [id number] Start Date: 07/27/16 Status: OrderedVitamin B12 1,000 [...] 2DAYS, # 90 tabs, 3 Refill(s), Pharmacy: [facility] [id number], TAKE 1 TABLET BY MOUTH FIVE DAYSPER [...] He then received radiation therapy and Lupron [id number] 2 lipomas removed in the past. Social History Social History Type Response Smoking Status Current every day smoker; Type: Cigarettes; Tobacco use per day : 1 Pack Assessment and Plan Extracted from: Title: CDM OV Author: David Montoya MD Date: 09/21/16 Impression and Plan Diagnosis Atrial fibrillation (TXV03-BM I48.91, Discharge, Medical). Generalized weakness (FAP02-SC R53.1, Discharge, Medical). Right shoulder pain (IEO41-IQ M25.511, Discharge, Medical). Colon cancer, stage III (VDX26-ZZ C18.3, Discharge, Medical). Tobacco use (ZHW34-SZ Z72.0, Discharge, Medical). Anticoagulated on Coumadin (WFD21-PE Z51.81, Discharge, Medical). Chronic obstructive pulmonary disease (COPD) (ENH23-ZZ J44.9, Working, Medical) . Orders Orders (Selected) Outpatient Orders Canceled XR Chest 2 Views: Future (On Hold) CEA: PT/INR: .
--- NOTE | 2017-11-15 14:43 | Emergency Department Report ---
SOB HPI - General Chief Complaint: Shortness of Breath/Dyspnea Stated Complaint: DYSPNEA, TACHYPNEA Time Seen by Provider: 11/15/17 13:35 - History of Present Illness 18-year-old male brought in by EMS with acute dyspnea. Patient has history of COPD, uses CPAP at night. He also requires oxygen at night with the CPAP. He has been worsening since falling about 10 days ago. He struck his right rib and right hip when he fell. He has had increasing swelling of the right leg with redness and inflammation. He also has noted pain with deep breathing. Today he began to have worsening difficulty breathing in general. He had to call EMS and was transported here. He feels like he's had a fever but has been on Keflex for the cellulitis in his leg. The redness is getting worse despite the antibiotic. Mild nausea, no vomiting. No chest pains.` - Related Data Home Medications Medication Instructions Recorded Confirmed Albuterol Sulfate [Proair Hfa] 1 puff INH Q4H PRN #0 06/09/15 11/15/17 Acetaminophen [Tylenol] 1,000 mg PO Q5H PRN 11/15/17 11/15/17 Ascorbate Calcium [Vitamin C] 500 mg PO DAILY 11/15/17 11/15/17 Cyanocobalamin (Vitamin B-12) 1,000 mcg PO DAILY 11/15/17 11/15/17 [Vitamin B-12] Glucosamine 500 mg PO DAILY 11/15/17 11/15/17 Loratadine 10 mg PO DAILY 11/15/17 11/15/17 Multivit-Min/FA/Lycopen/Lutein 1 each PO DAILY 11/15/17 11/15/17 [Centrum Silver Tablet] Pantoprazole Tab [Protonix Tab] 40 mg PO BID 11/15/17 11/15/17 Tamsulosin [Flomax] 0.4 mg PO HS 11/15/17 11/15/17 Tramadol [Ultram] 50 mg PO Q8H PRN 11/15/17 11/15/17 Previous Rx's Medication Instructions Recorded Apixaban [Eliquis] 5 mg PO BID #60 tab 11/26/17 Apixaban [Eliquis] 10 mg PO BID #4 tab 11/26/17 Bisacodyl EC TAB [Dulcolax] 10 mg PO DAILY PRN tab 11/26/17 Bumetanide Tab [Bumex 1 mg Tab] 1 mg PO DAILY #30 tab 11/26/17 Ciprofloxacin [Cipro 500 mg] 500 mg PO BID #14 tab 11/26/17 PEG 3350 17gm PACKET [Miralax] 17 gm PO DAILY packet 11/26/17 Sennosides [Senna Lax] 17.2 mg PO BID tab 11/26/17 Allergies Allergy/AdvReac Type Severity Reaction Status Date / Time cefadroxil Allergy Unknown Verified 11/16/17 09:49 cocoa butter Allergy Unknown RASH Verified 11/16/17 09:49 glycerin Allergy Unknown RASH Verified 11/16/17 09:49 mineral oil Allergy Unknown RASH Verified 11/16/17 09:49 petrolatum,white Allergy Unknown RASH Verified 11/16/17 09:49 phenylephrine Allergy Unknown Verified 11/16/17 09:49 witch cindy Allergy Unknown RASH Verified 11/16/17 09:49 Cefadroxil Hydrate Allergy Unknown SWELLING Uncoded 11/16/17 09:49 Mercury Salts Allergy Unknown RASH Uncoded 11/16/17 09:49 phenylephrine HCl Allergy Unknown RASH Uncoded 11/16/17 09:49 Shark Liver Oil Allergy Unknown RASH Uncoded 11/16/17 09:49 Skin Respiratory Factor Allergy Unknown RASH Uncoded 11/16/17 09:49 Review of Systems All systems: reviewed and negative except as stated PFSH Patient Stated Medical History Cerebrovascular Accident Yes: 2 Cataracts Yes Cardiac Arrhythmia Yes: A FIB Congestive Heart Failure Yes Hypertension Yes Chronic Obstructive Pulmonary Yes Disease (COPD) Other Hematologic ON WARFARIN Other Musculoskeletal Yes: SHOULDER Cellulitis Yes - Social History Smoking status: Current every day smoker Substance use type: does not use Physical Exam - Limitations Limitations: no limitations - General General appearance: alert, in distress (Respiratory) - Normal Exams: Head:: Normocephalic without trauma Neck:: Full range of motion, without adenopathy, JVD, bruits or thyromegaly Cardiovascular:: Regular rate and rhythm, without murmur or gallop, Pulses 2+ all extremities, capillary refill, <2 seconds all extremities Abdomen:: Bowel sounds positive, soft, non-tender, non-distended, no hepatosplenomegaly, masses or bruits noted Neurological:: Patient is alert, and oriented, cranial nerves, motor/sensory/ cerebellar, exams w/o gross deficits, to observation - Chest Chest inspection: Present: symmetric chest wall rise. Absent: tenderness, rash - Respiratory Respiratory exam: Present: respiratory distress, wheezes, prolonged expiratory phase, crackles Course Vital Signs Temperature 97.4 F 11/15/17 13:26 Pulse Rate 97 11/15/17 13:26 Respiratory Rate 29 H 11/15/17 13:26 Blood Pressure 139/61 11/15/17 13:26 Pulse Oximetry 100 11/15/17 13:26 Temperature 97.4 F 11/26/17 16:22 Pulse Rate 86 11/26/17 16:22 Respiratory Rate 18 11/26/17 17:40 Blood Pressure 125/66 11/26/17 16:22 Pulse Oximetry 100 11/26/17 16:22 Shortness of Breath/Dyspnea - [facility] Narrative Medical decision making narrative: Patient brought in by EMS. He immediately placed on BiPAP. Referral IV with 500 mL normal saline bolus 2. DuoNeb ordered. Septic workup initiated with blood culture and urine culture ordered as well as lactate. CT angios chest ordered with pulmonary emboli noted as well as speaking related mass right. This appears metastatic. Patient has previous history of lymphoma. Ultrasound lower extremity ordered with superficial femoral artery nonocclusive venous thrombosis noted. This is despite an INR greater than 5. Hospitalist was consulted and agreed to take patient. IV Rocephin given in ER and sepsis protocol met. I did give 2 mg of morphine IV which helped the patient to relax and his breathing actually improved with the CPAP at that time. Be sent to ICU for admission. - Differential Diagnosis Likely: acute exacerbation of chronic obstructive airways disease, congestive heart failure, community acquired pneumonia, pulmonary embolism - Medical Records Attestation: I reviewed the patient's medical records. - Lab Data Attestation: I reviewed the patient's lab results. Result diagrams: 11/25/17 04:51 11/25/17 04:51 Lab Results 11/15/17 11/15/17 11/15/17 Range/Units 13:33 13:33 13:33 WBC 5.9 (4.5-11.0) T/MM3 RBC 3.47 L (4.50-5.90) M/MM3 Hgb 9.2 L (13.5-17.5) GM/DL Hct 30.5 L (41-53) % MCV 87.9 (80-100) UM3 MCH 26.5 (26-34) UUG MCHC 30.2 L (31-37) GM/DL RDW Std Deviation 46.1 (36.9-50.2) FL Plt Count 255 (130-400) T/MM3 MPV 9.1 L (9.4-12.4) UM3 Immature Gran % (Auto) 0.3 (0.0-0.5) % Neut % (Auto) 66.3 H (33-66) % Lymph % (Auto) 13.6 L (23-45) % [place] % (Auto) 13.1 H (0-9.0) % Eos % (Auto) 6.4 H (0-4) % Baso % (Auto) 0.3 (0-2) % Neut # (Auto) 3.9 (1.8-7.7) T/MM3 Lymph # (Auto) 0.8 L (1-4.8) T/MM3 [place] # (Auto) 0.8 (0-0.8) T/MM3 Eos # (Auto) 0.4 (0-0.5) T/MM3 Baso # (Auto) 0.0 (0-0.2) T/MM3 Abs Immat Gran (auto) 0.02 (0.00-0.03) T/MM3 INR 5.39 H* (0.92-1.18) APTT (24-36) SEC Turbidity < 20 (0-20) Sodium 144 (136-146) MEQ/L Potassium 4.6 (3.6-5) MEQ/L Chloride 105 (98-107) MEQ/L Carbon Dioxide 28 (22-30) MEQ/L Anion Gap 11 (5-15) meq/L BUN 23.0 H (9-20) MG/DL Creatinine 1.3 (0.8-1.5) mg/dL GFR Calculation 53 BUN/Creatinine Ratio 18 (6-26) RATIO Glucose 113 H (75-110) MG/DL Calculated Osmolality 282 H (261-280) MOSM/KG Calcium 9.0 (8.4-10.2) MG/DL Total Bilirubin 0.60 (0.20-1.30) MG/DL Icterus Index < 2 (0-7) AST 17 (17-59) U/L ALT 14 (1-50) U/L Alkaline Phosphatase 82 (38-126) U/L Troponin I 0.079 (0-0.12) ng/ml NT-Pro-B Natriuret Pep 1640 H (0-175) pg/mL Total Protein 6.7 (6.3-8.2) g/dL Albumin 3.9 (3.5-5.0) g/dL Globulin 2.8 (2.4-3.6) G/DL Albumin/Globulin Ratio 1.4 (1.1-2.2) RATIO Plasma Lactate Cancelled Specimen Hemolysis < 15 (0-25) Ur Collection Type Urine Color (YELLOW) Urine Clarity Urine pH (5.0-8.0) Ur Specific [place] (1.015-1.025) Urine Protein (NEGATIVE) Urine Glucose (UA) (NEGATIVE) Urine Ketones (NEGATIVE) Urine Occult Blood (NEGATIVE) Urine Nitrate (NEGATIVE) Urine Bilirubin (NEGATIVE) Urine Urobilinogen (NORMAL) EU/DL Ur Leukocyte Esterase (NEGATIVE) Urine RBC (0-3) /HPF Urine WBC (0-5) /HPF Urine Bacteria (NEGATIVE) Ur Culture Indicated? 11/15/17 11/15/17 11/15/17 Range/Units 13:33 14:13 15:08 WBC (4.5-11.0) T/MM3 RBC (4.50-5.90) M/MM3 Hgb (13.5-17.5) GM/DL Hct (41-53) % MCV (80-100) UM3 MCH (26-34) UUG MCHC (31-37) GM/DL RDW Std Deviation (36.9-50.2) FL Plt Count (130-400) T/MM3 MPV (9.4-12.4) UM3 Immature Gran % (Auto) (0.0-0.5) % Neut % (Auto) (33-66) % Lymph % (Auto) (23-45) % [place] % (Auto) (0-9.0) % Eos % (Auto) (0-4) % Baso % (Auto) (0-2) % Neut # (Auto) (1.8-7.7) T/MM3 Lymph # (Auto) (1-4.8) T/MM3 [place] # (Auto) (0-0.8) T/MM3 Eos # (Auto) (0-0.5) T/MM3 Baso # (Auto) (0-0.2) T/MM3 Abs Immat Gran (auto) (0.00-0.03) T/MM3 INR (0.92-1.18) APTT 45.9 H (24-36) SEC Turbidity (0-20) Sodium (136-146) MEQ/L Potassium (3.6-5) MEQ/L Chloride (98-107) MEQ/L Carbon Dioxide (22-30) MEQ/L Anion Gap (5-15) meq/L BUN (9-20) MG/DL Creatinine (0.8-1.5) mg/dL GFR Calculation BUN/Creatinine Ratio (6-26) RATIO Glucose (75-110) MG/DL Calculated Osmolality (261-280) MOSM/KG Calcium (8.4-10.2) MG/DL Total Bilirubin (0.20-1.30) MG/DL Icterus Index (0-7) AST (17-59) U/L ALT (1-50) U/L Alkaline Phosphatase (38-126) U/L Troponin I (0-0.12) ng/ml NT-Pro-B Natriuret Pep (0-175) pg/mL Total Protein (6.3-8.2) g/dL Albumin (3.5-5.0) g/dL Globulin (2.4-3.6) G/DL Albumin/Globulin Ratio (1.1-2.2) RATIO Plasma Lactate 1.1 Specimen Hemolysis (0-25) Ur Collection Type Urine, void-cc/notcc Urine Color Yellow (YELLOW) Urine Clarity Clear Urine pH 6.0 (5.0-8.0) Ur Specific [place] <=1.005 L (1.015-1.025) Urine Protein Negative (NEGATIVE) Urine Glucose (UA) Negative (NEGATIVE) Urine Ketones Negative (NEGATIVE) Urine Occult Blood 2+ A (NEGATIVE) Urine Nitrate Negative (NEGATIVE) Urine Bilirubin Negative (NEGATIVE) Urine Urobilinogen 0.2 (NORMAL) EU/DL Ur Leukocyte Esterase Negative (NEGATIVE) Urine RBC 3-5 H (0-3) /HPF Urine WBC 0-1 (0-5) /HPF Urine Bacteria Trace H (NEGATIVE) Ur Culture Indicated? Cult not indicated - Radiology Data Attestation: I reviewed the patient's radiology results. - EKG Data EKG #1 EKG attestation: Yes: I reviewed and interpreted this EKG. EKG results narrative: 96 bpm Rate: tachycardia Rhythm: A.Fib [place]/QRS: normal Interpretation: nonspecific ST-T wave changes Disposition Clinical Impression: Pulmonary embolus, Acute respiratory distress, Cellulitis Disposition: 02 To [facility] Condition: Stable Time of Disposition: 15:00 - Seen By: physician
[2017-11-15] MEDS ORDERED: LIDOCAINE 2% JELLY (Urojet) 20ml MM ONE (14:44)
--- NOTE | 2017-11-15 15:09 | CT Scan Report ---
Indication: dyspnea PROCEDURE: CT angio pulm emboli: Encounter: Initial Comparison: June 12, 2014 Technique: Axial CT pulmonary angiographic phase images were performed through the chest after the administration of intravenous contrast. Coronal and Sagittal MIP reconstructed images were created and reviewed. Automated Exposure Control and Iterative Reconstruction dose reducing techniques were utilized. Contrast: Omnipaque 350 75 mL Findings: Pulmonary arteries: Contrast bolus and respiratory motion artifact limits the exam. Exam is diagnostic to the segmental pulmonary arterial level. There are segmental and subsegmental filling defects noted in the right middle and right lower lobe. Other findings: No gross pneumothorax. 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 No focal pneumonia. There is a new irregular 1.5 cm left upper lobe nodule on axial image number 29. Irregular spiculated left upper lobe nodule on image #12 measuring 2.5 cm in diameter. Small left pleural effusion is new. No axillary adenopathy. Slight interval enlargement in left paratracheal nodes. The most prominent on axial image #34 measures 1.7 cm in short axis. Heart size is enlarged but unchanged. No pericardial effusion. The upper abdomen shows no acute findings. Impression: Limited exam due to severe motion artifact. 1. Right-sided pulmonary emboli. 2. Left upper lobe pulmonary nodules suspicious for metastatic disease. .
[2017-11-15] MEDS ORDERED: NICOTINE 14 MG PATCH TD ONE (15:58)
--- NOTE | 2017-11-15 16:33 | Ultrasound Report ---
Indication: pe PROCEDURE: US venous doppler LE RT: Encounter: Initial Comparison: None Technique: Color Doppler duplex and grayscale sonographic imaging of the right lower extremity was performed. Findings: There is nonocclusive deep vein thrombosis seen in the right superficial femoral vein. This is predominantly peripherally positioned and could be subacute to chronic. The common femoral and popliteal veins are patent and compressible. Subcutaneous edema noted in the calf. Serial graded compression was performed from the inguinal ligament to the popliteal bifurcation, on the right thigh. In addition, color and pulsed Doppler was performed along with calf compression. At the ankle, normal flow is identified in the posterior tibial veins; these vessels are also normal in caliber. Impression: Nonocclusive DVT in the right superficial femoral vein could be chronic based on its morphology although this cannot be determined with certainty without comparison. .
[2017-11-15] MEDS ORDERED: HEPARIN - PHARMACY CONSULT MC ONE (18:29)
--- NOTE | 2017-11-15 18:36 | Progress Note ---
- Date 11/15/17 Subjective: Patient is an 82-year-old male who presents to the ED by EMS for increasing shortness of breath. He lives at home alone and has home health services. Today he reports he was so short of breath just going to and from the bathroom he almost collapsed. He sees Otto Hardy through [facility]. He was started on Levaquin and cephalexin yesterday for cellulitis of the right lower extremity. He reports he fell approximately 10 days ago. He had been home for only one day after being hospitalized at [facility] for approximately 5-6 days for "breathing problems." He states he was scheduled to follow-up at the heart failure clinic. He states he came to our hospital because he is fed up with the [facility]. He has a history of colon cancer 3 years ago and prostate cancer 18 years ago. In the emergency room , CTA chest was performed of his chest which showed a "spiculated mass " suspicious for metastasis and PE. He has a DVT in the right lower extremity. He was placed on BiPAP in the emergency room due to his respiratory status. He is typically on 3.5 L of oxygen at home chronically and sleeps with CPAP. States he quit smoking a month ago. Objective Vital signs: Temperature 98.7 F 11/15/17 17:31 Pulse Rate 92 11/15/17 17:31 Respiratory Rate 30 H 11/15/17 17:31 Blood Pressure 120/69 11/15/17 17:31 Pulse Oximetry 100 11/15/17 17:31 Height/Weight/BMI: Height 1.88 m Weight 114.6 kg - Constitutional Present: mild distress (respiratory), well nourished, well developed, obese - Routine HEENT Exam Head: Present: normocephalic, atraumatic Eye: Present: EOMI, PERRL - Routine Respiratory Exam Present: accessory muscle use, dyspnea, respiratory distress, wheezes, diminished air movement Comments: coarse throughout - Routine Cardiovascular Exam Present: no murmur, irregular rhythm - Routine Abdominal Exam Present: soft, non distended, non tender - Routine Extremities Exam Present: edema, normal capillary refill Comments: Significant edema of the bilateral lower extremities right greater than left. He has an obvious cellulitis with erythema, warmth and tenderness to the right lower leg. Both feet are significantly edematous. - Routine Skin Exam Present: dry, warm Comments: Multiple lipomas on the arms - Routine Neurological Exam Present: alert, oriented X3, moving all extremities, vision grossly intact, hearing grossly intact, normal speech - Routine Lymphatic Exam Lymphatic: Absent: adenopathy - Routine Psychiatric Exam Present: normal affect, cooperative Results - Labs CBC & Chem 7: 11/15/17 13:33 11/15/17 13:33 Microbiology Results: Microbiology 11/15/17 15:08 Urine, Voided (Cc/notcc) Urine Culture - Preliminary Culture Initiated - Results Pending 11/15/17 14:13 Peripheral/Iv Start Blood Culture - Preliminary Culture Initiated - Results Pending 11/15/17 14:19 Peripheral/Iv Start Blood Culture - Preliminary Culture Initiated - Results Pending - Imaging and Cardiology CTA chest Additional comments: Date of Exam: 11/15/17 Indication: dyspnea PROCEDURE: CT angio pulm emboli: Findings: Pulmonary arteries: Contrast bolus and respiratory motion artifact limits the exam. Exam is diagnostic to the segmental pulmonary arterial level. There are segmental and subsegmental filling defects noted in the right middle and right lower lobe. Other findings: No gross pneumothorax. 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 No focal pneumonia. There is a new irregular 1.5 cm left upper lobe nodule on axial image number 29. Irregular spiculated left upper lobe nodule on image #12 measuring 2.5 cm in diameter. Small left pleural effusion is new. No axillary adenopathy. Slight interval enlargement in left paratracheal nodes. The most prominent on axial image #34 measures 1.7 cm in short axis. Heart size is enlarged but unchanged. No pericardial effusion. The upper abdomen shows no acute findings. Impression: Limited exam due to severe motion artifact. 1. Right-sided pulmonary emboli. 2. Left upper lobe pulmonary nodules suspicious for metastatic disease. Venous US Additional comments: Date of Exam: 11/15/17 Indication: pe PROCEDURE: US venous doppler LE RT: Findings: There is nonocclusive deep vein thrombosis seen in the right superficial femoral vein. This is predominantly peripherally positioned and could be subacute to chronic. The common femoral and popliteal veins are patent and compressible. Subcutaneous edema noted in the calf. Serial graded compression was performed from the inguinal ligament to the popliteal bifurcation, on the right thigh. In addition, color and pulsed Doppler was performed along with calf compression. At the ankle, normal flow is identified in the posterior tibial veins; these vessels are also normal in caliber. Impression: Nonocclusive DVT in the right superficial femoral vein could be chronic based on its morphology although this cannot be determined with certainty without comparison. Assessment and Plan Assessment and Plan: Assessment Acute respiratory failure with hypoxia Pulmonary embolism-right middle and lower lobes (despite chronic anticoagulation with warfarin and current INR of 5.3) Nonocclusive DVT-right superficial femoral vein Left upper lobe pulmonary nodules-suspicious for metastatic disease Cellulitis right lower extremity COPD-chronic O2/CPAP CHF-rule out acute exacerbation Hypertension Atrial fibrillation with chronic anticoagulation with warfarin Supratherapeutic INR- present on admission Osteoarthritis History of prostate cancer - treated with radiation History of colon cancer-with surgical excision History of tobacco addiction-quit one month ago History of TIA Plan Admit, inpatient. Expect stay to exceed 2 overnights given need for BiPAP and further workup given his new findings of pulmonary nodules. Start heparin drip for PE/DVT, suspect patient may have warfarin resistance. Pharmacy to manage. BiPAP/Vapotherm PRN. DuoNeb's 4 times a day. Consult Dr. Dhaliwal regarding pulmonary nodules. Antiobiotics for cellulitis. Heparin for VTE treatment/prophylaxis. Avoid SCDs given his significant extremity cellulitis. Pantoprazole for GERD and GI prophylaxis. DO NOT RESUSCITATE. Daughter Shayna (lives in [place]) is patient's DPOA-H PCP-Otto Hardy DVT Prophylaxis: SQ Heparin Resuscitation Status: Do Not Resuscitate - Physician Narrative Physician: Mattie Cruz MD Narrative: Date: 11/15/17 Time: 1827 Hospital Course Summary Disclaimer: The visit summary below is not to be considered part of the above Progress Note.
--- NOTE | 2017-11-15 19:14 | History & Physical Report ---
History of Present Illness Date: 11/15/17 Chief complaint: SOA HPI: Patient is an 82-year-old male who presents to the ED by EMS for increasing shortness of breath. He lives at home alone and has home health services. Today he reports he was so short of breath just going to and from the bathroom he almost collapsed. He sees Otto Hardy through [facility] [place]. He was started on Levaquin and cephalexin yesterday for cellulitis of the right lower extremity. He reports he fell approximately 10 days ago. He had been home for only one day after being hospitalized at [facility] for approximately 5-6 days for "breathing problems." He states he was scheduled to follow-up at the heart failure clinic and with several other specialists,but at this point he doesn't want to see any of them. He states he came to our hospital because he is fed up with the [facility]. He has a history of colon cancer 3 years ago and prostate cancer 18 years ago. In the emergency room, CTA chest was performed of his chest which showed a "spiculated mass " suspicious for metastasis and PE. He has a DVT in the right lower extremity, despite taking Coumadin with a current supra therapeutic INR 5.3. He was placed on BiPAP in the emergency room due to his respiratory status. He is typically on 3.5 L of oxygen at home chronically and sleeps with CPAP. States he quit smoking a month ago. Review of Systems All systems PM: 10-point ROS was reviewed, no additional remarkable complaints except (SOA, LE swelling, redness, pain) Past Medical History Medical History Updates: COPD-chronic O2/CPAP. CHF. Hypertension. Atrial fibrillation with chronic anticoagulation with warfarin. Osteoarthritis. Urethral stricture. History of prostate cancer - treated with radiation. History of colon cancer-with surgical excision. History of tobacco addiction. History of TIA Surgical History: Cataracts, bowel resection for colon cancer, hernia repair, surgery for small bowel obstruction-Dr. Pedersen Family History: F - age 75 - lung cancer M - age 86 -DM Family History: As Above - Social History Smoking status: Former smoker (quit 1 month ago. Smoked for 60 years) Substance use type: does not use Alcohol intake frequency: 0-2 drinks per day (drinks one beer daily) Household members: none Current occupational status: retired Current residence: Apartment/Private Home Social history: PCP-Otto Hardy ([place] [facility]) Medications Home Medications Medication Instructions Recorded Confirmed Type Warfarin Sodium 5 mg PO DAILY #0 01/31/13 11/15/17 History Albuterol Sulfate [Proair Hfa] 1 puff INH Q4H PRN #0 06/09/15 11/15/17 History Acetaminophen [Tylenol] 1,000 mg PO Q5H PRN 11/15/17 11/15/17 History Ascorbate Calcium [Vitamin C] 500 mg PO DAILY 11/15/17 11/15/17 History Bumetanide Tab [Bumex 1 mg Tab] 1 mg PO BID 11/15/17 11/15/17 History CephALEXin [Keflex 250 mg] 250 mg PO TID 11/15/17 11/15/17 History Cyanocobalamin (Vitamin B-12) 1,000 mcg PO DAILY 11/15/17 11/15/17 History [Vitamin B-12] Glucosamine 500 mg PO DAILY 11/15/17 11/15/17 History Levofloxacin [Levaquin] 500 mg PO DAILY 11/15/17 11/15/17 History Loratadine 10 mg PO DAILY 11/15/17 11/15/17 History Multivit-Min/FA/Lycopen/Lutein 1 each PO DAILY 11/15/17 11/15/17 History [Centrum Silver Tablet] Pantoprazole Tab [Protonix Tab] 40 mg PO BID 11/15/17 11/15/17 History Tamsulosin [Flomax] 0.4 mg PO HS 11/15/17 11/15/17 History Tramadol [Ultram] 50 mg PO Q8H PRN 11/15/17 11/15/17 History Allergies Allergy/AdvReac Type Severity Reaction Status Date / Time cefadroxil Allergy Unknown Unverified 09/03/17 15:44 cocoa butter Allergy Unknown RASH Verified 02/19/17 15:54 glycerin Allergy Unknown RASH Verified 02/19/17 15:54 mineral oil Allergy Unknown RASH Verified 02/19/17 15:54 petrolatum,white Allergy Unknown RASH Verified 02/19/17 15:54 phenylephrine Allergy Unknown Unverified 09/03/17 15:44 witch cindy Allergy Unknown RASH Verified 02/19/17 15:54 Cefadroxil Hydrate Allergy Unknown SWELLING Uncoded 06/09/15 10:49 Mercury Salts Allergy Unknown RASH Uncoded 06/09/15 10:49 phenylephrine HCl Allergy Unknown RASH Uncoded 06/09/15 10:49 Shark Liver Oil Allergy Unknown RASH Uncoded 06/09/15 10:49 Skin Respiratory Factor Allergy Unknown RASH Uncoded 06/09/15 10:49 Exam Vital Signs: Temperature 98.7 F 11/15/17 17:31 Pulse Rate 92 11/15/17 17:31 Respiratory Rate 30 H 11/15/17 17:31 Blood Pressure 120/69 11/15/17 17:31 Pulse Oximetry 99 11/15/17 18:41 Height/Weight/BMI: Height 1.88 m Weight 114.6 kg - Constitutional Present: no acute distress, well nourished, well developed, obese - Routine HEENT Exam Head: Present: normocephalic, atraumatic Eye: Present: EOMI, PERRL - Routine Neck Exam Present: supple. Absent: lymphadenopathy, thyromegaly - Routine Respiratory Exam Present: dyspnea, respiratory distress. Absent: wheezes Comments: coarse throughout - Routine Cardiovascular Exam Present: no murmur, irregularly irregular - Routine Abdominal Exam Present: soft, normoactive bowel sounds. Absent: tenderness, distended - Routine Extremities Exam Present: edema (Significant edema of the bilateral lower extremities right greater than left. He has an obvious cellulitis with erythema, warmth and tenderness to the right lower leg. Both feet are significantly edematous.), normal capillary refill - Routine Skin Exam Present: dry, warm Comments: Multiple lipomas on the arms - Routine Neurological Exam Present: alert, oriented X3, CN II-XII intact, moving all extremities, normal speech - Routine Psychiatric Exam Present: normal affect, cooperative Results - Labs CBC & Chem 7: 11/15/17 13:33 11/15/17 13:33 Microbiology Results: Microbiology 11/15/17 15:08 Urine, Voided (Cc/notcc) Urine Culture - Preliminary Culture Initiated - Results Pending 11/15/17 14:13 Peripheral/Iv Start Blood Culture - Preliminary Culture Initiated - Results Pending 11/15/17 14:19 Peripheral/Iv Start Blood Culture - Preliminary Culture Initiated - Results Pending - Echocardiogram History of Echocardiogram: 08/13/17 (read by Dr. Rivers). Left ventricle: Cavity size is normal. Wall thickness is mildly increased. There is mild concentric hypertrophy. Systolic function is normal. The estimated ejection fraction is 55-60%. There were no regional wall motion abnormalities identified. The study is not technically sufficient to allow evaluation of LV diastolic function due to lack of normal sinus rhythm. Left atrium: The atrium is severely enlarged. Right ventricle: Cavity size is mildly increased. Wall thickness is normal. Systolic function is normal. Systolic pressure is moderately increased. Right Atrium: Not well visualized. The atrium is mildly to moderately enlarged. Aortic valve: Not well visualized. Trileaflet? Moderately thickened, moderately calcified leaflets. Doppler: There is moderate aortic valve stenosis with peak velocity of 2 m/sec, peak gradient of 17 mmHg, mean gradient of 9 mmHg. 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 There is no regurgitation. Mitral valve: Well visualized. Mildly to moderately calcified, posterior annulus. Mildly thickened, mildly calcified leaflets. Doppler: There is no evidence for stenosis. There is mild to moderate regurgitation. Tricuspid valve: Structurally normal valve. There is mild to moderate regurgitation. Pulmonic valve: Trivial regurgitation. Pericardium: There is no pericardial effusion. Aorta: Aortic root is not dilated. Inferior vena cava: The vessel is normal in size. The respirophasic diameter changes are blunted less than 50% - Imaging and Cardiology Venous US Additional comments: Date of Exam: 11/15/17 Indication: pe PROCEDURE: US venous doppler LE RT: Findings: There is nonocclusive deep vein thrombosis seen in the right superficial femoral vein. This is predominantly peripherally positioned and could be subacute to chronic. The common femoral and popliteal veins are patent and compressible. Subcutaneous edema noted in the calf. Serial graded compression was performed from the inguinal ligament to the popliteal bifurcation, on the right thigh. In addition, color and pulsed Doppler was performed along with calf compression. At the ankle, normal flow is identified in the posterior tibial veins; these vessels are also normal in caliber. Impression: Nonocclusive DVT in the right superficial femoral vein could be chronic based on its morphology although this cannot be determined with certainty without comparison. CTA chest Additional comments: Date of Exam: 11/15/17 Indication: dyspnea PROCEDURE: CT angio pulm emboli: Findings: Pulmonary arteries: Contrast bolus and respiratory motion artifact limits the exam. Exam is diagnostic to the segmental pulmonary arterial level. There are segmental and subsegmental filling defects noted in the right middle and right lower lobe. Other findings: No gross pneumothorax. 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 No focal pneumonia. There is a new irregular 1.5 cm left upper lobe nodule on axial image number 29. Irregular spiculated left upper lobe nodule on image #12 measuring 2.5 cm in diameter. Small left pleural effusion is new. No axillary adenopathy. Slight interval enlargement in left paratracheal nodes. The most prominent on axial image #34 measures 1.7 cm in short axis. Heart size is enlarged but unchanged. No pericardial effusion. The upper abdomen shows no acute findings. Impression: Limited exam due to severe motion artifact. 1. Right-sided pulmonary emboli. 2. Left upper lobe pulmonary nodules suspicious for metastatic disease. Assessment and Plan (1) Acute on chronic respiratory failure with hypoxia and hypercapnia Current visit: Yes Status: Acute Assessment and Plan: Assessment Acute respiratory failure with hypoxia Pulmonary embolism-right middle and lower lobes (despite chronic anticoagulation with warfarin and current INR of 5.3) Nonocclusive DVT-right superficial femoral vein-DVT originally identified [facility] several weeks ago Left upper lobe pulmonary nodules-suspicious for metastatic disease Cellulitis right lower extremity COPD-chronic O2 - w/ possible exacerbation Chronic respiratory failure with hypoxia-home Trilogy CHF-rule out acute exacerbation Hypertension Valvular heart disease-moderate (based on echo 08/15) CKD (ave creatinine 1.5) Paroxysmal atrial fibrillation with chronic anticoagulation with warfarin Supratherapeutic INR- present on admission Osteoarthritis History of prostate cancer - treated with radiation History of colon cancer-with surgical excision History of tobacco addiction-quit one month ago History of TIA GERD Urethral stricture Chronic lymphedema Plan Admit, inpatient. Expect stay to exceed 2 overnights given severity of his respiratory failure requiring BiPAP and further workup given his new findings of pulmonary nodules. Start heparin drip for PE/DVT, suspect patient may have warfarin resistance. Pharmacy to manage. Pt was DC'd from [facility] on apixaban but states he didn't take it due to cost. BiPAP/Vapotherm PRN. DuoNeb's 4 times a day. Budesonide BID. (On documentation from [facility], Advair and Spiriva are listed as outpatient pulmonary meds) Continue home Bumex 1mg BID for CHF. Daily weights and I&O's. Consult Dr. Dhaliwal and Dr Davis/Miguelito regarding pulmonary nodules. Consult Dr. Pedersen re: placement of ne filter. Vancomycin for tx of cellulitis. Pharmacy to manage. Heparin for VTE treatment/prophylaxis. Avoid SCDs given his significant extremity cellulitis. Check TSH, CEA, PSA and repeat BMP and CBC in am given his h/o colon and prostate cancer and to follow electrolytes, renal function and blood counts. Pantoprazole for GERD and GI prophylaxis. DNR. Daughter hSayna (lives in [place]) is patient's DPOA-H. PCP-Otto Hardy DVT Prophylaxis: SQ Heparin GI Prophylaxis: Protonix Resuscitation Status: Do Not Resuscitate - Physician Narrative Physician: Mattie Cruz MD Narrative: Date: 11/15/17 Time: 2224 I have independently evaluated and examined this patient. I reviewed the chart, the patient's history, and the [employer]/PA's documented findings as above. We discussed and formulated the assessment and plan as above with additions as below: Mr. Chan is a difficult historian who has received the majority of his healthcare at [facility] in [place] with several admissions earlier this year. Was most recently hospitalized [facility] to 3 weeks ago for altered mentation attributed to acute on chronic hypercapnic/hypoxic respiratory failure. Patient apparently has a home Trilogy unit which he was using inconsistently. During the hospitalization he was found to have acute bilateral superficial femoral vein DVTs despite therapeutic INR on admission and he was converted from warfarin to Eliquis although he resumed warfarin use when he returned home because Eliquis was not covered by his insurance. Chronic lymphedema, acute kidney injury/CKD, coronary hypertension and COPD with exacerbation were all reported during the [facility] hospitalization. Patient describes these felt lousy since he fell off his scooter one day after discharge from [facility] and has had increasing pain in his right leg with swelling and development of erythema. This subsequently has become more short of breath despite using "CPAP "for longer periods of time. He had a near syncopal event today because he was so short of breath and was subsequently evaluated in the emergency room where PE and right pulmonary mass was identified. INR is elevated at 5.39 and there is obvious cellulitis of the left lower extremity. Patient is not febrile and does not have other manifestations of sepsis. Talkative male who becomes dyspneic with speech and desaturate speaking but continues doing so just the same Diminished breath sounds throughout, systolic murmur lower left sternal border +3-4 edema/lymphedema right lower extremity with erythema mid/lower anterior calf; +2 edema/lymphedema left lower extremity with faint erythema DVT/PE and anticoagulated male with elevated INR; DVT subacute but also identified when adequately anticoagulated. Presence of mass and lung suggests new tumor and probable warfarin resistance. Patient denies being told he wasn't responding to warfarin and needed alternate therapy but is aware that he was discharged with alternate anticoagulant. Continue supportive care; heparin drip initiated, given persistent clot in lower extremity Vina filter being discussed. Oncology being consulted. CT chest reviewed by myself and with Dr. Dhaliwal who will see the patient in consultation to determine if biopsy of pulmonary mass can be obtained as this is a central lesion and could not be biopsied percutaneously. Vancomycin initiated for cellulitis, cultures pending Discussed with Dr. Day, Dr. Pedersen, and Dr. Dhaliwal; old records reviewed. Hospital Course Summary Disclaimer: The visit summary below is not to be considered part of the above Progress Note. Hospital Course: 11/15/17 Admit, inpatient. Expect stay to exceed 2 overnights given severity of his respiratory failure requiring BiPAP and further workup given his new findings of pulmonary nodules. Start heparin drip for PE/DVT, suspect patient may have warfarin resistance. Pharmacy to manage. Pt was DC'd from [facility] on apixaban but states he didn't take it due to cost. BiPAP/Vapotherm PRN. DuoNeb's 4 times a day. Budesonide BID. (On documentation from [facility], Advair and Spiriva are listed as outpatient pulmonary meds) Continue home Bumex 1mg BID for CHF. Daily weights and I&O's. Consult Dr. Dhaliwal and Dr Davis/Miguelito regarding pulmonary nodules. Consult Dr. Pedersen re: placement of ne filter. Vancomycin for tx of cellulitis. Pharmacy to manage. Heparin for VTE treatment/prophylaxis. Avoid SCDs given his significant extremity cellulitis. Check TSH, CEA, PSA and repeat BMP and CBC in am given his h/o colon and prostate cancer and to follow electrolytes, renal function and blood counts. Pantoprazole for GERD and GI prophylaxis. DNR. Daughter Shayna (lives in [place]) is patient's DPOA-H. PCP-Otto Hardy
[2017-11-15] MEDS ORDERED: VANCOMYCIN - PHARMACY CONSULT MC ONE (19:32)
[2017-11-15] MEDS: HEPARIN DRIP 20,000 UNIT/500 ML BAG IV SCH (19:43)
[2017-11-15] MEDS: ALBUTEROL/IPRATROPIUM 2.5mg-0.5mg/3ml NEB AEROSOL SCH (20:17)
[2017-11-15] MEDS: TAMSULOSIN 0.4 MG CAPSULE PO SCH (20:55)
[2017-11-15] MEDS: PANTOPRAZOLE 40 MG TABLET PO SCH (20:55)
[2017-11-15] MEDS: BUMETANIDE 1 MG TABLET PO SCH (21:14)
[2017-11-16] MEDS: ALBUTEROL/IPRATROPIUM 2.5mg-0.5mg/3ml NEB AEROSOL SCH ×4 (07:45→23:40)
[2017-11-16] MEDS: BUDESONIDE INH.SOLN 0.5mg/2ml NEB AEROSOL SCH ×2 (07:45→23:40)
[2017-11-16] MEDS: ACETAMINOPHEN 500 MG TABLET PO PRN (09:08)
[2017-11-16] MEDS: BUMETANIDE 1 MG TABLET PO SCH ×2 (09:08→21:36)
[2017-11-16] MEDS: MULTI-VIT + MINERAL (Opti-gen) TABLET PO SCH (09:08)
[2017-11-16] MEDS: CYANOCOBALAMIN (B-12) 500mcg TABLET PO SCH (09:08)
[2017-11-16] MEDS: PANTOPRAZOLE 40 MG TABLET PO SCH ×2 (09:09→21:36)
[2017-11-16] MEDS: LORATADINE 10 MG TABLET PO SCH (09:09)
[2017-11-16] MEDS: ASCORBIC ACID 500 MG TABLET PO SCH (09:09)
--- NOTE | 2017-11-16 09:20 | Consult Note ---
<Vida Dumont - Last Filed: 11/16/17 10:33> Oncology HPI - Data of Consult Patient: new to practice Consult date: 11/16/17 Requesting Physician: Mattie Cruz MD Primary Care Provider: ? Otto Hardy Physician [facility] - Consult Narrative History of present illness: 82-year-old male, new patient to Dr. Davis was admitted to [facility] 11/15/17 with acute on chronic respiratory failure/hypoxia. New finding of spiculated mass suspicious for metastatic disease and PE on CTA chest done . Past medical history significant for prostate cancer " That was 20 years ago. I had radiation at [facility]. It messed up my urethra." Reports history of colon cancer, found on colonoscopy 3 years ago. Had surgery with Dr. Mello at [facility], " The mesh clogged up. I had to have a second surgery because of the mesh. My second surgery was with Dr. Schulte." Patient uncertain if has seen an oncologist; " I don't think so. " Patient with multiple comorbidities, including COPD, tobacco addiction, history pulmonary hypertension/pulmonary edema, chronic kidney disease, paroxysmal atrial fibrillation, history of bilateral DVT. Patient had recent hospitalization at [facility], admitted 10/24/17, discharged 10/29, attending physician was Dr. Elisa Leary. Admitted w/ acute on chronic hypercapnic/hypoxic respiratory failure, COPD with exacerbation, right basilar infiltrate, pulmonary hypertension/pulmonary edema, CKD with a LOUIS, chronic lymphedema, and paroxysmal atrial fibrillation. Typically on 3.5 L of oxygen at home chronically and sleeps with CPAP. States quit smoking a month ago. At time of intake, alone in room. He is alert and oriented to time, place. Denies fever, chills or weight change. Has chronic cough, shortness of air, with increasing symptoms the last few days. Reports double vision " For at least a couple weeks. May be even a month." Had not reported the double vision to any provider. Denies new aches or pains- has chronic wound right lower leg after a fall approximately 2 weeks ago where his motorized wheelchair landed on his right leg. Chronic pain rossy legs. Denies nausea/vomiting or abd. pain. Recently loose stools-"it's the medicines they been giving me." Has chronic urinary hesitation/difficulty urinating/urinary incontinence for past 20 years. Denies worsening symptoms. Review of Systems - Constitutional Constitutional: Present: weakness. Absent: chills, fever(s) - EENT Eyes: Present: change in vision (diplopia) Mouth/Throat: Absent: sore throat, changes in swallowing - Cardiovascular Cardiovascular: Present: dyspnea on exertion, orthopnea, edema - Respiratory Respiratory: Present: cough, dyspnea, dyspnea on exertion - Gastrointestinal Gastrointestinal: Present: change in bowel habits (c/o loose stools recently) - Genitourinary Genitourinary: Present: difficulty urinating, urinary frequency, urinary hesitancy, urinary incontinence - Musculoskeletal Musculoskeletal: Present: joint swelling (rossy. legs) - Integumentary/Breasts Integumentary: Present: wounds (bruising/severe lymphedema rossy. lower extremities. No open wounds currently) - Neurological Neurological: Present: confusion (per H&P/home health called EMS because of confusion), weakness - Psychiatric Psychiatric: Present: anxiety, hopelessness PFSH Patient Stated Medical History Cerebrovascular Accident Yes: 2 Cataracts Yes Cardiac Arrhythmia Yes: A FIB Congestive Heart Failure Yes Hypertension Yes Chronic Obstructive Pulmonary Yes Disease (COPD) Other Hematologic ON WARFARIN Other Musculoskeletal Yes: SHOULDER Cellulitis Yes Medical History Updates: COPD-chronic O2/CPAP. CHF. Hypertension. Atrial fibrillation with chronic anticoagulation with warfarin. Osteoarthritis. Urethral stricture. History of prostate cancer - treated with radiation. History of colon cancer-with surgical excision. History of tobacco addiction. History of TIA Surgical History: Cataracts, bowel resection for colon cancer, hernia repair, surgery for small bowel obstruction-Dr. Pedersen Family History: father age 75 lung cancer, daughter age 55 metastatic breast cancer - Social History Smoking status: Former smoker (quit 1 month ago. Smoked for 60 years) Packs per day: 1 (states quit after last hospitalization in [place] October 2017) Packs-years: 83 Substance use type: does not use Alcohol intake frequency: 0-2 drinks per day (drinks one beer daily) Household members: none (? home support. Has 1 daughter-lives in [place]. States " 4 other kids-we haven't talked for years.") Current occupational status: retired Current residence: Apartment/Private Home Social history: PCP-Otto Hardy ([place] house call) Medications Home Medications Medication Instructions Recorded Confirmed Type Warfarin Sodium 5 mg PO DAILY #0 01/31/13 11/15/17 History Albuterol Sulfate [Proair Hfa] 1 puff INH Q4H PRN #0 06/09/15 11/15/17 History Acetaminophen [Tylenol] 1,000 mg PO Q5H PRN 11/15/17 11/15/17 History Ascorbate Calcium [Vitamin C] 500 mg PO DAILY 11/15/17 11/15/17 History Bumetanide Tab [Bumex 1 mg Tab] 1 mg PO BID 11/15/17 11/15/17 History CephALEXin [Keflex 250 mg] 250 mg PO TID 11/15/17 11/15/17 History Cyanocobalamin (Vitamin B-12) 1,000 mcg PO DAILY 11/15/17 11/15/17 History [Vitamin B-12] Glucosamine 500 mg PO DAILY 11/15/17 11/15/17 History Levofloxacin [Levaquin] 500 mg PO DAILY 11/15/17 11/15/17 History Loratadine 10 mg PO DAILY 11/15/17 11/15/17 History Multivit-Min/FA/Lycopen/Lutein 1 each PO DAILY 11/15/17 11/15/17 History [Centrum Silver Tablet] Pantoprazole Tab [Protonix Tab] 40 mg PO BID 11/15/17 11/15/17 History Tamsulosin [Flomax] 0.4 mg PO HS 11/15/17 11/15/17 History Tramadol [Ultram] 50 mg PO Q8H PRN 11/15/17 11/15/17 History Allergies Allergy/AdvReac Type Severity Reaction Status Date / Time cefadroxil Allergy Unknown Verified 11/16/17 09:49 cocoa butter Allergy Unknown RASH Verified 11/16/17 09:49 glycerin Allergy Unknown RASH Verified 11/16/17 09:49 mineral oil Allergy Unknown RASH Verified 11/16/17 09:49 petrolatum,white Allergy Unknown RASH Verified 11/16/17 09:49 phenylephrine Allergy Unknown Verified 11/16/17 09:49 witch cindy Allergy Unknown RASH Verified 11/16/17 09:49 Cefadroxil Hydrate Allergy Unknown SWELLING Uncoded 11/16/17 09:49 Mercury Salts Allergy Unknown RASH Uncoded 11/16/17 09:49 phenylephrine HCl Allergy Unknown RASH Uncoded 11/16/17 09:49 Shark Liver Oil Allergy Unknown RASH Uncoded 11/16/17 09:49 Skin Respiratory Factor Allergy Unknown RASH Uncoded 11/16/17 09:49 Exam Vital signs: Temperature 100.2 F 11/16/17 07:46 Pulse Rate 95 11/16/17 07:46 Respiratory Rate 26 H 11/16/17 07:46 Blood Pressure 130/73 11/16/17 07:46 Pulse Oximetry 100 11/16/17 07:46 - Constitutional mild distress, obese, cooperative - Routine HEENT Exam Head: Present: normocephalic Eye: Present: EOMI ENT: Present: mucous membranes moist - Routine Neck Exam Present: supple. Absent: lymphadenopathy - Routine Respiratory Exam Present: accessory muscle use, decreased breath sounds, diminished air movement. Absent: wheezes - Routine Cardiovascular Exam Present: RRR, no murmur - Routine Abdominal Exam Present: soft, non tender - Routine Extremities Exam Present: edema (3+ edema right foot/2+ edema right leg/left foot and left leg), tenderness - Routine Skin Exam Present: intact, dry. Absent: jaundice - Routine Neurological Exam Present: alert, moving all extremities - Routine Psychiatric Exam Present: cooperative Oncology Results - Labs CBC & Chem 7: 11/16/17 04:28 11/16/17 04:28 Labs: Short CBC 11/15/17 11/16/17 Range/Units 13:33 04:28 WBC 5.9 5.5 (4.5-11.0) T/MM3 Hgb 9.2 L 7.6 L D (13.5-17.5) GM/DL Hct 30.5 L 25.3 L D (41-53) % Plt Count 255 241 (130-400) T/MM3 BMP 11/15/17 11/16/17 13:33 04:28 Sodium 144 141 Potassium 4.6 4.2 Chloride 105 103 Carbon Dioxide 28 30 BUN 23.0 H 24.0 H Creatinine 1.3 1.6 H D Glucose 113 H 113 H Calcium 9.0 8.2 L D Cardiac Enzymes 11/15/17 Range/Units 13:33 Troponin I 0.079 (0-0.12) ng/ml Liver Function 11/15/17 Range/Units 13:33 Total Bilirubin 0.60 (0.20-1.30) MG/DL AST 17 (17-59) U/L ALT 14 (1-50) U/L Alkaline Phosphatase 82 (38-126) U/L Albumin 3.9 (3.5-5.0) g/dL Urine 11/15/17 Range/Units 15:08 Urine Color Yellow (YELLOW) Urine Clarity Clear Urine pH 6.0 (5.0-8.0) Ur Specific [place] <=1.005 L (1.015-1.025) Urine Protein Negative (NEGATIVE) Urine Glucose (UA) Negative (NEGATIVE) - Impressions Date of Exam: 11/15/17 Ordering Provider: Edgar Day MD Type of Exam(s): CT angio pulm emboli Reason for Exam(s): dyspnea Indication: dyspnea PROCEDURE: CT angio pulm emboli: Encounter: Initial Comparison: June 12, 2014 Technique: Axial CT pulmonary angiographic phase images were performed through the chest after the administration of intravenous contrast. Coronal and Sagittal MIP reconstructed images were created and reviewed. Automated Exposure Control and Iterative Reconstruction dose reducing techniques were utilized. Contrast: Omnipaque 350 75 mL Findings: Pulmonary arteries: Contrast bolus and respiratory motion artifact limits the exam. Exam is diagnostic to the segmental pulmonary arterial level. There are segmental and subsegmental filling defects noted in the right middle and right lower lobe. Other findings: No gross pneumothorax. 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 No focal pneumonia. There is a new irregular 1.5 cm left upper lobe nodule on axial image number 29. Irregular spiculated left upper lobe nodule on image #12 measuring 2.5 cm in diameter. Small left pleural effusion is new. No axillary adenopathy. Slight interval enlargement in left paratracheal nodes. The most prominent on axial image #34 measures 1.7 cm in short axis. Heart size is enlarged but unchanged. No pericardial effusion. The upper abdomen shows no acute findings. Impression: Limited exam due to severe motion artifact. 1. Right-sided pulmonary emboli. 2. Left upper lobe pulmonary nodules suspicious for metastatic disease. . Assessment and Plan Assessment and Plan: Assessment 1. New findings pulmonary nodules on CT angiogram in patient with history of prostate cancer and colon cancer. Recent complaint of diplopia, occurring for past 2 weeks to 1 month. Denies headaches. 2. Acute respiratory failure with hypoxia. 3. Pulmonary embolism right middle and lower lobes despite chronic anticoagulation. Nonocclusive DVT right femoral vein, 4. Multiple comorbidities, including cellulitis right lower extremity, COPD/ chronic oxygen use, history CHF, hypertension,valvular heart disease, chronic kidney disease, paroxysmal atrial fibrillation, urethral stricture, and chronic lymphedema. Plan Informed patient Dr. Davis is an oncologist, he will visit with patient later today and determine what further workup will be recommended. Discussed with Dr. Cruz also. Patient recently quit smoking/ is using nicotine patches, 14mg strength. Encouraged to remain abstinent; this is best medicine to reduce risk for stroke, worsening of his CHF, and worsening lung issues. States " Maybe I will just get it all over with if this is bad." Asked patient if he would harm himself, states " Not right now." <Hector Davis - Last Filed: 11/16/17 13:39> Oncology HPI - Data of Consult Requesting Physician: Mattie Cruz MD Primary Care Provider: Primary Care, You Choose [facility] Patient Stated Medical History Cerebrovascular Accident Yes: 2 Cataracts Yes Cardiac Arrhythmia Yes: A FIB Congestive Heart Failure Yes Hypertension Yes Chronic Obstructive Pulmonary Yes Disease (COPD) Other Hematologic ON WARFARIN Other Musculoskeletal Yes: SHOULDER Cellulitis Yes Exam Vital signs: Temperature 100.2 F 11/16/17 07:46 Pulse Rate 95 11/16/17 07:46 Respiratory Rate 23 11/16/17 10:15 Blood Pressure 130/73 11/16/17 07:46 Pulse Oximetry 95 11/16/17 10:15 Oncology Results - Labs CBC & Chem 7: 11/16/17 04:28 11/16/17 04:28 Labs: Short CBC 11/15/17 11/16/17 Range/Units 13:33 04:28 WBC 5.9 5.5 (4.5-11.0) T/MM3 Hgb 9.2 L 7.6 L D (13.5-17.5) GM/DL Hct 30.5 L 25.3 L D (41-53) % Plt Count 255 241 (130-400) T/MM3 BMP 11/15/17 11/16/17 13:33 04:28 Sodium 144 141 Potassium 4.6 4.2 Chloride 105 103 Carbon Dioxide 28 30 BUN 23.0 H 24.0 H Creatinine 1.3 1.6 H D Glucose 113 H 113 H Calcium 9.0 8.2 L D Cardiac Enzymes 11/15/17 Range/Units 13:33 Troponin I 0.079 (0-0.12) ng/ml Liver Function 11/15/17 Range/Units 13:33 Total Bilirubin 0.60 (0.20-1.30) MG/DL AST 17 (17-59) U/L ALT 14 (1-50) U/L Alkaline Phosphatase 82 (38-126) U/L Albumin 3.9 (3.5-5.0) g/dL Urine 11/15/17 Range/Units 15:08 Urine Color Yellow (YELLOW) Urine Clarity Clear Urine pH 6.0 (5.0-8.0) Ur Specific [place] <=1.005 L (1.015-1.025) Urine Protein Negative (NEGATIVE) Urine Glucose (UA) Negative (NEGATIVE) Assessment and Plan Assessment and Plan: Patient Examined, chart reviewed, agree with documentation of Jazz Dumont. Patient with multiple medical problems including acute hypoxic respiratory failure, pulmonary embolism, chronic venous insufficiency with deep venous thrombosis right leg, chronic edema, congestive heart failure with valvular heart disease, chronic kidney disease. He has a past history of prostate cancer in the distant past colon cancer approximately 3 years ago that by records appear to be stage III. He denies adjuvant therapy. He now has 2 small lung nodules and an elevated CEA of 8. Diagnostic biopsy would be difficult secondary to his COPD and also anticoagulation. Feel the next best step would be PET scan as a outpatient. Would recommend CT scan of the abdomen and pelvis to look for any evidence of metastatic disease. This scan was ordered today. 2. Pulmonary embolism recurrent and chronic. Would consider hypercoagulable workup. This could include factor V Leiden, anticardiolipin antibody, prothrombin 86894 a/G mutation all of which could be done on anticoagulation. I see no prior hypercoagulable evaluation in this patient. Would also consider DIC with his prior history of malignancy. Will obtain fibrinogen and d-dimer. Currently being managed by heparin drip. Consider DIC workup. 3. History of colon cancer will obtain pathology report CEA elevated at 8.0. Will obtain CT scan of the abdomen and pelvis and consider PET scan as outpatient. 4. Distant history of prostate cancer with normal PSA and 2012 consider repeat of the PSA
--- NOTE | 2017-11-16 09:33 | Pharmacy Consult ---
Pharmacy Consult-Heparin - Laboratory Information Heparin Plt Count 241 T/MM3 (130-400) 11/16/17 04:28 APTT 73.5 SEC (24-36) H 11/16/17 04:28 - Consult Information HEPARIN CONSULT (Recurring): PTT = 73.5 Sec. Platelet count = 241 T/mm3. Will continue heparin at current rate, PTT at 1400 Will recheck PTT and adjust regimen as needed. Thank you.
[2017-11-16] MEDS: SALINE FLUSH 10ml SYRINGE IVF PRN ×2 (09:42→12:49)
[2017-11-16] MEDS: MAGNESIUM SULFATE 1gm PREMIX 1 GM/100 ML BAG IV SCH ×2 (09:42→12:47)
--- NOTE | 2017-11-16 10:06 | Pharmacy Consult-Antibiotics ---
Pharmacy Consult-Vancomycin - Laboratory Information WBC 5.5 T/MM3 (4.5-11.0) 11/16/17 04:28 BUN 24.0 MG/DL (9-20) H 11/16/17 04:28 Creatinine 1.6 mg/dL (0.8-1.5) H D 11/16/17 04:28 - Consult Information Vancomycin consult noted for Mr Chan by Denise ARDON. A vancomycin dose of 2000mg was given last night. Mr Chan is 82 years old and weighs 115.2kg. His serum creatinine is 1.6 mg/dl. Will begin vancomyicn 1250mg IV q18h this morning. Pharmacy will continue to monitor. Thank you.
[2017-11-16] MEDS: HEPARIN DRIP 20,000 UNIT/500 ML BAG IV SCH (10:27)
[2017-11-16] MEDS: NICOTINE 14 MG PATCH TD SCH (10:51)
--- NOTE | 2017-11-16 14:39 | CT Scan Report ---
Indication: Hx colon cancer elevated CEA PROCEDURE: CT abdomen pelvis wo con: Encounter: Initial Comparison: CT angiogram of the chest from yesterday and CT abdomen/pelvis dated June 09, 2015 Technique: Axial CT images were performed through the abdomen and pelvis without intravenous contrast. Coronal and sagittal two-dimensional reformats. Automated Exposure Control and Iterative Reconstruction dose reducing techniques were utilized. Findings: Small left pleural effusion. Evaluation of the solid organs is limited without IV contrast. No contour deforming liver mass or gross bile duct dilatation. Vicarious excretion of contrast by the gallbladder. Small hiatal hernia. The spleen is normal. Fatty replaced pancreas. Pneumobilia in the common duct. Recommend correlation for prior ERCP. Superior pole right renal cyst. Bilateral renal vascular calcifications. Left renal cysts with the largest measuring 4.2 cm in diameter. Scattered arterial atherosclerotic plaque. Focal 3 cm abdominal aortic aneurysm just below the renal arteries extending for 2-cm craniocaudally. No abdominal or pelvic lymphadenopathy. Bladder is decompressed by a Siddiqui catheter with gas and contrast material present. No free fluid. No evidence of a bowel obstruction. Prior right hemicolectomy. Bone windows show degenerative change in the lumbar spine. Chronic T12 compression fracture. Impression: 1. No findings to suggest metastatic disease in the abdomen or pelvis. 2. 3 cm abdominal aortic aneurysm. At this size follow-up is recommended in three years. .
[2017-11-16] MEDS ORDERED: IOHEXOL 300mg/ml 50ml INJECTION ONE (15:35)
--- NOTE | 2017-11-16 15:53 | XRay Report ---
Indication: check Picc placement PROCEDURE: XR chest post-procedure 1V: Encounter: Initial Comparison: February 19, 2017 Findings: Right PICC line loops within a vein in the right axillary region. Tip projects over the mid axillary area. Overlying monitoring leads. Increased interstitial markings and both lungs. Cardiac silhouette is grossly stable allowing for differences in rotation. Left upper lobe nodule is better seen on recent chest CT. Impression: Right PICC line tip projects over the right axillary area. Recommend repositioning or replacement. .
--- NOTE | 2017-11-16 16:42 | Fluoroscopy Report ---
Indication:IV ANTIBIOTICS Procedure:FL guided PICC insertion PICC LINE INSERTION/REPOSITIONING: The patient arrived in the imaging department with a right-sided PICC line in place. Fluoroscopic imaging showed the tip of the PICC line in the area of the right subclavian vein. Approximately 5 cc of Omnipaque 300 was injected through the PICC line and revealed that the vein was very tortuous and a PICC line would not be able to pass through the vein. It was elected to remove the right-sided PICC line after discussing the findings with the infusion therapy nurse. The patient tolerated this procedure well. He was transferred back to his room on the surgical floor in stable condition. Impression:Unsuccessful attempt at a right-sided PICC line placement in the right cephalic vein. These results were discussed with the infusion therapy nurse immediately following the exam. Fluoroscopy dose: 4.00 mGy (Cumulative air kerma) Long Thakur RPA/HERNANDO performed this under my personal supervision. .
--- NOTE | 2017-11-16 17:22 | Pharmacy Consult ---
Pharmacy Consult-Heparin - Laboratory Information Heparin Plt Count 241 T/MM3 (130-400) 11/16/17 04:28 APTT 79.6 SEC (24-36) H 11/16/17 16:49 - Consult Information HEPARIN PROTOCOL: Will continue the heparin as currently ordered. Thanks, Lucas Cabrera, Pharmacist
--- NOTE | 2017-11-16 17:37 | Progress Note ---
- Date 11/16/17 Subjective: Patient is seen this afternoon resting in bed. He reports "nothing of significance has happened today." He reports he "hurts all over." He does feel like his breathing is better. He was on BiPAP all last night and off and on this morning. Since noon he states he's just been on oxygen. He states he is eating well. He complains of pain in the right leg. No nausea or vomiting. States his bowels are moving. Objective Vital signs: Temperature 98.3 F 11/16/17 16:11 Pulse Rate 78 11/16/17 16:11 Respiratory Rate 20 11/16/17 16:11 Blood Pressure 128/72 11/16/17 16:11 Pulse Oximetry 100 11/16/17 16:11 Height/Weight/BMI: Height 1.88 m Weight 115.2 kg - Constitutional Present: no acute distress, well nourished, well developed - Routine HEENT Exam Head: Present: normocephalic, atraumatic - Routine Respiratory Exam Present: dyspnea, decreased breath sounds, CTA bilaterally (auscultated anteriorly). Absent: wheezes - Routine Cardiovascular Exam Present: no murmur, irregular rhythm - Routine Abdominal Exam Present: soft, non distended, non tender - Routine Extremities Exam Present: normal capillary refill Comments: Significant redness and warmth and swelling to the right lower extremity and foot. The redness extends from above the ankle to below the knee. There is an area on the lateral side of the right foot which has a small area of erythema. Left lower extremity shows improvement in swelling. - Routine Skin Exam Present: dry, warm - Routine Neurological Exam Present: alert, normal speech - Routine Lymphatic Exam Lymphatic: Absent: adenopathy - Routine Psychiatric Exam Present: normal affect, cooperative Results - Labs CBC & Chem 7: 11/16/17 16:49 11/16/17 04:28 Microbiology Results: Microbiology 11/15/17 15:08 Urine, Voided (Cc/notcc) Urine Culture - Preliminary No Growth After 1 Day 11/15/17 14:13 Peripheral/Iv Start Blood Culture - Preliminary No Growth After 1 Day 11/15/17 14:19 Peripheral/Iv Start Blood Culture - Preliminary No Growth After 1 Day - Imaging and Cardiology CT scan - abdomen Additional comments: Date of Exam: 11/16/17 Indication: Hx colon cancer elevated CEA PROCEDURE: CT abdomen pelvis wo con: Findings: Small left pleural effusion. Evaluation of the solid organs is limited without IV contrast. No contour deforming liver mass or gross bile duct dilatation. Vicarious excretion of contrast by the gallbladder. Small hiatal hernia. The spleen is normal. Fatty replaced pancreas. Pneumobilia in the common duct. Recommend correlation for prior ERCP. Superior pole right renal cyst. Bilateral renal vascular calcifications. Left renal cysts with the largest measuring 4.2 cm in diameter. Scattered arterial atherosclerotic plaque. Focal 3 cm abdominal aortic aneurysm just below the renal arteries extending for 2-cm craniocaudally. No abdominal or pelvic lymphadenopathy. Bladder is decompressed by a Siddiqui catheter with gas and contrast material present. No free fluid. No evidence of a bowel obstruction. Prior right hemicolectomy. Bone windows show degenerative change in the lumbar spine. Chronic T12 compression fracture. Impression: 1. No findings to suggest metastatic disease in the abdomen or pelvis. 2. 3 cm abdominal aortic aneurysm. At this size follow-up is recommended in three years. Assessment and Plan (1) Acute on chronic respiratory failure with hypoxia and hypercapnia Current visit: Yes Status: Acute Assessment and Plan: Assessment Acute respiratory failure with hypoxia Pulmonary embolism-right middle and lower lobes (despite chronic anticoagulation with warfarin and current INR of 5.3) Nonocclusive DVT-right superficial femoral vein-DVT originally identified [facility] several weeks ago Left upper lobe pulmonary nodules-suspicious for metastatic disease Cellulitis right lower extremity COPD-chronic O2 - w/ possible exacerbation Chronic respiratory failure with hypoxia-home 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 Dr Mercer consulted and recommended CT abd/pelvis which showed no evidence for mets. Recommends OP PET scan. Currently on 5L O2 per nasal canula. Requires BiPAP at night and prn. Hgb dropped from 9.2 to 7.6 this am. Repeat hgb this afternoon was 8.0. Repeat in am. Pt continues on vancomycin (Day2) for cellulitis. Tmax 100.2 this am at 0746. Cont Heparin for VTE treatment/prophylaxis. BP's stable. Once INR normalizes, Dr. Pedersen will consider placement of Angela filter. DVT Prophylaxis: Heparin drip (therapeutic) Resuscitation Status: Do Not Resuscitate - Physician Narrative Physician: Mattie Cruz MD Narrative: Date: 11/16/17 Time: 2049 I have independently evaluated and examined this patient. I reviewed the chart, the patient's history, and the YARDAGE ESTIMATOR/PA's documented findings as above. We discussed and formulated the assessment and plan as above with additions as below: Mr. Chan complained that he couldn't eat anything and was going to start to while in the hospital because the low-salt diet is not edible; he described multiple frustrations regarding his perceived injustice at staff recommendations regarding modifying multiple health risk factors and complained about urinary frequency although he has a Siddiqui catheter in place. Overall he feels as though his breathing somewhat more comfortably today than he was yesterday. NAD, talkative-completing sentences today without desaturating Respirations are less labored today, no audible wheezing, breath sounds relatively clear Marked edema bilateral lower extremities R>L, erythema right lower extremity fading Salt restriction eliminated, patient reassured that things are being done to help him and events of the day reiterated. He acknowledges that his leg looks better and that he is breathing more comfortably. Reports he received notice that insurance company will pay for Eliquis and that the initial problem was that it was ordered for "double dose" when he left [place]-likely 10 mg twice a day appropriately for PE initially CT abdomen/pelvis reviewed by myself-no evident pathology. Discussed with oncology. Continue to monitor PT daily until level drops below 1.5. Hospital Course Summary Disclaimer: The visit summary below is not to be considered part of the above Progress Note. Hospital Course: 11/15/17 Admit, inpatient. Expect stay to exceed 2 overnights given severity of his respiratory failure requiring BiPAP and further workup given his new findings of pulmonary nodules. Start heparin drip for PE/DVT, suspect patient may have warfarin resistance. Pharmacy to manage. Pt was DC'd from [facility] on apixaban but states he didn't take it due to cost. BiPAP/Vapotherm PRN. DuoNeb's 4 times a day. Budesonide BID. (On documentation from [facility], Advair and Spiriva are listed as outpatient pulmonary meds) Continue home Bumex 1mg BID for CHF. Daily weights and I&O's. Consult Dr. Dhaliwal and Dr Davis/Miguelito regarding pulmonary nodules. Consult Dr. Pedersen re: placement of angela filter. Vancomycin for tx of cellulitis. Pharmacy to manage. Heparin for VTE treatment/prophylaxis. Avoid SCDs given his significant extremity cellulitis. Check TSH, CEA, PSA and repeat BMP and CBC in am given his h/o colon and prostate cancer and to follow electrolytes, renal function and blood counts. Pantoprazole for GERD and GI prophylaxis. DNR. Daughter Shayna (lives in [place]) is patient's DPOA-H. PCP-Otto Hardy 11/16/17 CEA elevated, PSA nl. Dr Mercer consulted and recommended CT abd/pelvis which showed no evidence for mets. Recommends OP PET scan. Currently on 5L O2 per nasal canula. Requires BiPAP at night and prn. Hgb dropped from 9.2 to 7.6 this am. Repeat hgb this afternoon was 8.0. Repeat in am. Pt continues on vancomycin (Day2) for cellulitis. Tmax 100.2 this am at 0746. Cont Heparin for VTE treatment/prophylaxis. BP's stable. Once INR normalizes, Dr. Pedersen will consider placement of Angela filter.
[2017-11-16] MEDS: TAMSULOSIN 0.4 MG CAPSULE PO SCH (21:36)
[2017-11-17] MEDS: HEPARIN DRIP 20,000 UNIT/500 ML BAG IV SCH ×2 (02:26→18:14)
--- NOTE | 2017-11-17 07:00 | Pharmacy Consult ---
Pharmacy Consult-Heparin - Laboratory Information Heparin Plt Count 246 T/MM3 (130-400) 11/17/17 04:17 APTT 73.1 SEC (24-36) H 11/17/17 04:17 - Consult Information Heparin Consult: Day 3 The aPTT was within range and the platelets are remaining good. Will continue the heparin as currently ordered: 1,400 units/hr (35 mL/hr). Ordered a PTT and PLT for tomorrow routine labs. Thanks for the Protocol, Lucas Cabrera, Pharmacist.
[2017-11-17] MEDS: BUDESONIDE INH.SOLN 0.5mg/2ml NEB AEROSOL SCH ×2 (07:15→19:16)
[2017-11-17] MEDS: ALBUTEROL/IPRATROPIUM 2.5mg-0.5mg/3ml NEB AEROSOL SCH ×4 (07:15→19:15)
[2017-11-17] MEDS: CYANOCOBALAMIN (B-12) 500mcg TABLET PO SCH (09:43)
[2017-11-17] MEDS: BUMETANIDE 1 MG TABLET PO SCH (09:43)
[2017-11-17] MEDS: LORATADINE 10 MG TABLET PO SCH (09:43)
[2017-11-17] MEDS: MULTI-VIT + MINERAL (Opti-gen) TABLET PO SCH (09:43)
[2017-11-17] MEDS: PANTOPRAZOLE 40 MG TABLET PO SCH ×2 (09:43→20:42)
[2017-11-17] MEDS: ASCORBIC ACID 500 MG TABLET PO SCH (09:44)
[2017-11-17] MEDS: NICOTINE PATCH REMOVAL TD SCH (09:44)
[2017-11-17] MEDS: NICOTINE 14 MG PATCH TD SCH (09:45)
--- NOTE | 2017-11-17 11:16 | Progress Note ---
- Date 11/17/17 Subjective: Patient is seen this morning in bed. He is currently yelling at the nurses for not tucking his blankets in correctly. Nurses state he has been very rude all morning. He continues to have pain in the right leg, cannot tell me if it feels better or worse. Is currently dyspneic, more so than when I saw him yesterday. Nurse is planning to put him back on BiPAP shortly. He did not eat much for supper because he is complaining about the food. His diet changed to a regular diet and he ate a good breakfast this morning. Denies nausea or vomiting. No fever or chills. Objective Vital signs: Temperature 96.6 F L 11/17/17 08:00 Pulse Rate 85 11/17/17 08:00 Respiratory Rate 20 11/17/17 08:00 Blood Pressure 125/72 11/17/17 08:00 Pulse Oximetry 96 11/17/17 08:00 Height/Weight/BMI: Height 1.88 m Weight 117.1 kg - Constitutional Present: well nourished, well developed - Routine HEENT Exam Head: Present: normocephalic, atraumatic - Routine Respiratory Exam Present: accessory muscle use, dyspnea, decreased breath sounds. Absent: wheezes Comments: coarse - Routine Cardiovascular Exam Present: RRR, no murmur - Routine Abdominal Exam Present: soft, non distended, non tender - Routine Extremities Exam Present: normal capillary refill Comments: Continues to have significant swelling to the right lower extremity, with minimal improvement. Redness persists from below the knee to above the ankle and the right lower extremity. He has bruising noticed the lateral side of the right lower leg and complains of pain in this area. - Routine Skin Exam Present: dry, warm - Routine Neurological Exam Present: alert, oriented X3 - Routine Lymphatic Exam Lymphatic: Absent: adenopathy - Routine Psychiatric Exam Present: cooperative, agitated Results - Labs CBC & Chem 7: 11/17/17 13:15 11/17/17 04:17 Microbiology Results: Microbiology 11/15/17 15:08 Urine, Voided (Cc/notcc) Urine Culture - Preliminary No Growth After 1 Day 11/15/17 14:13 Peripheral/Iv Start Blood Culture - Preliminary No Growth After 1 Day 11/15/17 14:19 Peripheral/Iv Start Blood Culture - Preliminary No Growth After 1 Day Assessment and Plan (1) Acute on chronic respiratory failure with hypoxia and hypercapnia Current visit: Yes Status: Acute Assessment and Plan: Assessment Acute respiratory failure with hypoxia Pulmonary embolism-right middle and lower lobes (despite chronic anticoagulation with warfarin and current INR of 5.3) Nonocclusive DVT-right superficial femoral vein-DVT originally identified [facility] several weeks ago Left upper lobe pulmonary nodules-suspicious for metastatic disease Cellulitis right lower extremity COPD-chronic O2 - w/ possible exacerbation Chronic respiratory failure with hypoxia-home Trilogy CHF-rule out acute exacerbation Hypertension Valvular heart disease-moderate (based on echo 08/15) CKD (ave creatinine 1.5) Paroxysmal atrial fibrillation with chronic anticoagulation with warfarin Supratherapeutic INR- present on admission Osteoarthritis History of prostate cancer - treated with radiation History of colon cancer-with surgical excision History of tobacco addiction-quit one month ago History of TIA GERD Urethral stricture Chronic lymphedema AAA, 3 cm Normocytic anemia-POA (Labs done 10/26/17: Fe 40, TIBC 323, Sat 12%, transferrin 217, ferritin 30, B12 1452, folate 13.1). Anemia likely chronic ds and chronic blood loss secondary to anticoagulation Plan Vancomycin day #3 for cellulitis. White count has been normal throughout his stay. No further fevers. Hemoglobin lower again today. 9.2--7.6--8.0--7.6. Follow closely. Patient had B12/folate and iron studies performed during recent hospitalization in [place]. Likely has chronic blood loss secondary to anticoagulation. Weight is up 2.5kg since admission. CXR suggestive of pulmonary edema. Give additional 1mg Bumex IV. Creatinine has progressively worsened. 0.3--1.6--1.7. Will see if this improves with diuresis. Cont Heparin for VTE treatment/prophylaxis. Following daily INR until normalizes. Today 4.6. Dr. Pedersen will consider Angela filter once INR normalizes. Dr. Davis recommends outpatient PET scan for further onc workup. DVT Prophylaxis: Heparin drip GI Prophylaxis: Protonix Resuscitation Status: Do Not Resuscitate - Physician Narrative Physician: Mattie Cruz MD Narrative: Date: 11/17/17 Time: 2024 I have independently evaluated and examined this patient. I reviewed the chart, the patient's history, and the INK PRINTER/PA's documented findings as above. We discussed and formulated the assessment and plan as above with additions as below: Mr. Chan describes stabbing chest pain over the lower sternum earlier today which lasted for 30-35 minutes by his report with associated nausea and dyspnea ; he reports it was similar to pain he experienced after his fall when he injured his chest but "came out of nowhere" today. Troponin was obtained earlier today and was unremarkable; EKG demonstrated some nonspecific changes in the septal leads with baseline wandering somewhat making interpretation difficult. Continues to complain of bladder spasm symptoms. NAD, alert Respirations mildly labored but oxygenation has improved with saturation 99% on 5 L at present Good airflow, breath sounds slightly coarse Marked edema bilateral lower extremities R>L, mild erythema bilaterally again greater on the right-improved from admission Vancomycin trough being obtained this evening, will check second troponin at that time. Creatinine up slightly-may require vanc adjustment Levsin added when necessary for bladder spasm. PTT 73.1-therapeutically anticoagulated; INR remains elevated at 4.64; discussed rationale for Angela filter with patient as future interruptions in anticoagulation if he does have tumor in his chest and requires future procedures would be potentially life-threatening. Hospital Course Summary Disclaimer: The visit summary below is not to be considered part of the above Progress Note. Hospital Course: 11/15/17 Admit, inpatient. Expect stay to exceed 2 overnights given severity of his respiratory failure requiring BiPAP and further workup given his new findings of pulmonary nodules. Start heparin drip for PE/DVT, suspect patient may have warfarin resistance. Pharmacy to manage. Pt was DC'd from [facility] on apixaban but states he didn't take it due to cost. BiPAP/Vapotherm PRN. DuoNeb's 4 times a day. Budesonide BID. (On documentation from [facility], Advair and Spiriva are listed as outpatient pulmonary meds) Continue home Bumex 1mg BID for CHF. Daily weights and I&O's. Consult Dr. Dhaliwal and Dr Davis/Miguelito regarding pulmonary nodules. Consult Dr. Pedersen re: placement of angela filter. Vancomycin for tx of cellulitis. Pharmacy to manage. Heparin for VTE treatment/prophylaxis. Avoid SCDs given his significant extremity cellulitis. Check TSH, CEA, PSA and repeat BMP and CBC in am given his h/o colon and prostate cancer and to follow electrolytes, renal function and blood counts. Pantoprazole for GERD and GI prophylaxis. DNR. Daughter Shayna (lives in [place]) is patient's DPOA-H. PCP-Otto Hardy 11/16/17 CEA elevated, PSA nl. Dr Mercer consulted and recommended CT abd/pelvis which showed no evidence for mets. Recommends OP PET scan. Currently on 5L O2 per nasal canula. Requires BiPAP at night and prn. Hgb dropped from 9.2 to 7.6 this am. Repeat hgb this afternoon was 8.0. Repeat in am. Pt continues on vancomycin (Day2) for cellulitis. Tmax 100.2 this am at 0746. Cont Heparin for VTE treatment/prophylaxis. Once INR normalizes, Dr. Pedersen will consider placement of Angela filter. 11/17/17 Vancomycin day #3 for cellulitis. White count has been normal throughout his stay. No further fevers. Hemoglobin lower again today. 9.2--7.6--8.0--7.6. Follow closely. Patient had B12/folate and iron studies performed during recent hospitalization in [place]. Likely has chronic blood loss secondary to anticoagulation. Weight is up 2.5kg since admission. CXR suggestive of pulmonary edema. Give additional 1mg Bumex IV. Creatinine has progressively worsened. 0.3--1.6--1.7. Will see if this improves with diuresis. Levsin added for bladder spasm. Vancomycin level being checked this evening-may require dose adjustment with slight increased creatinine.
[2017-11-17] MEDS ORDERED: BUMETANIDE 1 MG TABLET PO SCH (17:00)
[2017-11-17] MEDS: HYOSCYAMINE 0.125 MG ORAL TABLET PO PRN (20:41)
[2017-11-17] MEDS: TAMSULOSIN 0.4 MG CAPSULE PO SCH (20:41)
--- NOTE | 2017-11-18 06:58 | Pharmacy Consult ---
Pharmacy Consult-Heparin - Laboratory Information Heparin Plt Count 270 T/MM3 (130-400) 11/18/17 04:12 APTT 58.3 SEC (24-36) H 11/18/17 04:12 - Consult Information Heparin Consult: Day 5 The PTT is within normal range and the platelets are goog, so will continue the heparin as ordered: 1,400 u/hr (35 mL/hr). The pharmacy will continue to monitor the heparin and adjust it as needed. Thanks, Lucas Cabrera, Pharmacist.
--- NOTE | 2017-11-18 07:49 | Pharmacy Consult-Antibiotics ---
Pharmacy Consult-Vancomycin - Laboratory Information WBC 5.4 T/MM3 (4.5-11.0) 11/18/17 04:12 BUN 21.0 MG/DL (9-20) H 11/18/17 04:12 Creatinine 1.6 mg/dL (0.8-1.5) H 11/18/17 04:12 Vancomycin Trough 15.17 ug/mL (15-20) 11/17/17 20:54 VANCOMYCIN THERAPY: DAY 4 Trough level prior to dose last night is within limits. Target trough range = 15 - 20 mcg/ml Renal Fx is compromised and has worsened since admission. Watching closely. Will continue the current regimen of VANCOMYCIN 1250mg IV q 18 hours. Thank you.
[2017-11-18] MEDS: BUDESONIDE INH.SOLN 0.5mg/2ml NEB AEROSOL SCH ×2 (08:35→18:59)
[2017-11-18] MEDS: ALBUTEROL/IPRATROPIUM 2.5mg-0.5mg/3ml NEB AEROSOL SCH ×4 (08:35→18:59)
[2017-11-18] MEDS: HEPARIN DRIP 20,000 UNIT/500 ML BAG IV SCH ×2 (10:15→23:16)
--- NOTE | 2017-11-18 10:50 | XRay Report ---
Indication: chest pain PROCEDURE: XR chest 1V: Encounter: Initial Comparison: November 16, 2017 Findings: Right PICC line has been removed. Diffuse interstitial prominence is unchanged in both lungs. Patient is again rotated significantly. No gross pneumothorax or large effusion. Impression: Stable interstitial prominence. Limited exam due to rotation. There is a preliminary report by [facility]. .
--- NOTE | 2017-11-18 11:57 | Progress Note ---
- Date 11/18/17 Subjective: Elpidio was sleeping when I saw him late morning. He was on BiPAP. He opened his eyes briefly then closed them and did not engage in conversation. He asked nursing staff not to enter his room unless he asks for them, and told them he wanted to sleep today. Objective Vital signs: Temperature 95.3 F L 11/18/17 07:51 Pulse Rate 88 11/18/17 08:00 Respiratory Rate 22 11/18/17 11:30 Blood Pressure 130/61 11/18/17 07:51 Pulse Oximetry 99 11/18/17 11:30 Rhythm: Atrial Fibrillation with Normal Ventricular Rate Height/Weight/BMI: Height 1.88 m Weight 114.6 kg - Constitutional Present: no acute distress - Routine HEENT Exam Head: Present: normocephalic Comments: BiPAP mask in place - Routine Respiratory Exam Present: decreased breath sounds - Routine Cardiovascular Exam Present: irregularly irregular - Routine Abdominal Exam Present: soft - Routine Extremities Exam Present: edema (edema to both legs but marked edema on right with persistent erythema to RLE) - Routine Skin Exam Present: erythema (RLE), dry, warm - Routine Neurological Exam Absent: alert (resting, eyes closed. Did not engage in conversation.) - Routine Psychiatric Exam Present: unable to assess Results - Labs CBC & Chem 7: 11/18/17 04:12 11/18/17 04:12 Microbiology Results: Microbiology 11/15/17 15:08 Urine, Voided (Cc/notcc) Urine Culture - Final No Growth After 2 Days 11/15/17 14:13 Peripheral/Iv Start Blood Culture - Preliminary No Growth After 2 Days 11/15/17 14:19 Peripheral/Iv Start Blood Culture - Preliminary No Growth After 2 Days Assessment and Plan (1) Acute on chronic respiratory failure with hypoxia and hypercapnia Current visit: Yes Status: Acute Assessment and Plan: Assessment Acute respiratory failure with hypoxia Pulmonary embolism-right middle and lower lobes (despite chronic anticoagulation with warfarin and current INR of 5.3) Nonocclusive DVT-right superficial femoral vein-DVT originally identified VCSF several weeks ago Left upper lobe pulmonary nodules-suspicious for metastatic disease Cellulitis right lower extremity COPD-chronic O2 - w/ possible exacerbation Chronic respiratory failure with hypoxia-home Trilogy CHF-rule out acute exacerbation Hypertension Valvular heart disease-moderate (based on echo 08/15) CKD (ave creatinine 1.5) Paroxysmal atrial fibrillation with chronic anticoagulation with warfarin Supratherapeutic INR- present on admission Osteoarthritis History of prostate cancer - treated with radiation History of colon cancer-with surgical excision History of tobacco addiction-quit one month ago History of TIA GERD Urethral stricture Chronic lymphedema AAA, 3 cm Normocytic anemia-POA (Labs done 10/26/17: Fe 40, TIBC 323, Sat 12%, transferrin 217, ferritin 30, B12 1452, folate 13.1). Anemia likely chronic ds and chronic blood loss secondary to anticoagulation Plan Vancomycin day #4 for cellulitis. White count has been normal throughout his stay. No further fevers. Hgb improved to 8.0. INR down to 2.8; poss [place] placement when INR is subtherapeutic. Continue heparin gtt as INR drifts down. Diuresed yesterday with Bumex IV x1. Weight is down 3 kg and creatinine improved to 1.6. Continue oral bumex. Mg stable at 1.7. High risk medication in use - heparin. DVT Prophylaxis: Heparin drip GI Prophylaxis: Protonix Resuscitation Status: Do Not Resuscitate - Physician Narrative Physician: Mattie Cruz MD Narrative: Date: 11/18/17 Time: 1819 I have independently evaluated and examined this patient. I reviewed the chart, the patient's history, and the STOCK CAR DRIVER/PA's documented findings as above. We discussed and formulated the assessment and plan as above with additions as below: Mr. Chan was sleeping with BiPAP on but awoke to voice only entered the room. He reported that he couldn't sleep last night for a variety of reasons including discomfort from the catheter, stinging pain in his legs, and something I couldn't understand. He didn't fall asleep until about 4:00 and subsequently has spent most of the day sleeping today. He denied chest pain and reported he does not want the Siddiqui catheter removed. Nursing reports the patient had some pauses on telemetry this morning-strips reviewed atrial fibrillation continually with 2 pauses of about 2 seconds this morning occurring sequentially after which no additional pauses reported/recorded. BiPAP on, speech mumbled but respirations nonlabored; airflow diminished-breath sounds clear Persistent edema bilateral lower extremities R>L, erythema less prominent with legs elevated Hemoglobin stable, creatinine stable with improved diuresis yesterday; troponins all approximately 0.05. Patient reports cellulitis has responded well to Cipro in the past and that he tolerates it well; will add for gram-negative coverage I had a lengthy conversation with the patient's daughter (~25 minutes) updating her on patient's multiple problems and anticipated plan of care including failure to respond to warfarin, anticipated [place] filter, plan for outpatient PET scan. May require addition of Zaroxolyn to aid with diuresis. Hospital Course Summary Disclaimer: The visit summary below is not to be considered part of the above Progress Note. Hospital Course: 11/15/17 Admit, inpatient. Expect stay to exceed 2 overnights given severity of his respiratory failure requiring BiPAP and further workup given his new findings of pulmonary nodules. Start heparin drip for PE/DVT, suspect patient may have warfarin resistance. Pharmacy to manage. Pt was DC'd from [facility] on apixaban but states he didn't take it due to cost. BiPAP/Vapotherm PRN. DuoNeb's 4 times a day. Budesonide BID. (On documentation from [facility], Advair and Spiriva are listed as outpatient pulmonary meds) Continue home Bumex 1mg BID for CHF. Daily weights and I&O's. Consult Dr. Dhaliwal and Dr Davis/Miguelito regarding pulmonary nodules. Consult Dr. Pedersen re: placement of angela filter. Vancomycin for tx of cellulitis. Pharmacy to manage. Heparin for VTE treatment/prophylaxis. Avoid SCDs given his significant extremity cellulitis. Check TSH, CEA, PSA and repeat BMP and CBC in am given his h/o colon and prostate cancer and to follow electrolytes, renal function and blood counts. Pantoprazole for GERD and GI prophylaxis. DNR. Daughter Shayna (lives in [place]) is patient's DPOA-H. PCP-Otto Hardy 11/16/17 CEA elevated, PSA nl. Dr Mercer consulted and recommended CT abd/pelvis which showed no evidence for mets. Recommends OP PET scan. Currently on 5L O2 per nasal canula. Requires BiPAP at night and prn. Hgb dropped from 9.2 to 7.6 this am. Repeat hgb this afternoon was 8.0. Repeat in am. Pt continues on vancomycin (Day2) for cellulitis. Tmax 100.2 this am at 0746. Cont Heparin for VTE treatment/prophylaxis. Once INR normalizes, Dr. Pedersen will consider placement of Angela filter. 11/17/17 Vancomycin day #3 for cellulitis. White count has been normal throughout his stay. No further fevers. Hemoglobin lower again today. 9.2--7.6--8.0--7.6. Follow closely. Patient had B12/folate and iron studies performed during recent hospitalization in [place]. Likely has chronic blood loss secondary to anticoagulation. Weight is up 2.5kg since admission. CXR suggestive of pulmonary edema. Give additional 1mg Bumex IV. Creatinine has progressively worsened. 0.3--1.6--1.7. Will see if this improves with diuresis. Levsin added for bladder spasm. Vancomycin level being checked this evening-may require dose adjustment with slight increased creatinine. 11/18/17 Vancomycin day #4 for cellulitis. White count has been normal throughout his stay. No further fevers. Add Cipro for gram-negative coverage-patient reports he is tolerated this well previously. Hgb improved to 8.0. INR down to 2.8; poss [place] placement when INR is subtherapeutic. Continue heparin gtt as INR drifts down. Diuresed yesterday with Bumex IV x1. Weight is down 3 kg and creatinine improved to 1.6. Continue oral bumex. Mg stable at 1.7.
[2017-11-18] MEDS: MULTI-VIT + MINERAL (Opti-gen) TABLET PO SCH (12:16)
[2017-11-18] MEDS: CYANOCOBALAMIN (B-12) 500mcg TABLET PO SCH (12:16)
[2017-11-18] MEDS: LORATADINE 10 MG TABLET PO SCH (12:16)
[2017-11-18] MEDS: ASCORBIC ACID 500 MG TABLET PO SCH (12:16)
[2017-11-18] MEDS: PANTOPRAZOLE 40 MG TABLET PO SCH ×2 (12:16→20:07)
[2017-11-18] MEDS: BUMETANIDE 1 MG TABLET PO SCH ×2 (12:16→15:09)
[2017-11-18] MEDS: NICOTINE PATCH REMOVAL TD SCH (12:17)
[2017-11-18] MEDS: NICOTINE 14 MG PATCH TD SCH (12:17)
[2017-11-18] MEDS: TRAMADOL 50 MG TABLET PO PRN ×2 (15:09→23:16)
[2017-11-18] MEDS: HYOSCYAMINE 0.125 MG ORAL TABLET PO PRN ×2 (18:30→23:17)
[2017-11-18] MEDS: TAMSULOSIN 0.4 MG CAPSULE PO SCH (20:07)
[2017-11-18] MEDS: CIPROFLOXACIN 500 MG TABLET PO SCH (20:08)
[2017-11-19] MEDS: ALBUTEROL/IPRATROPIUM 2.5mg-0.5mg/3ml NEB AEROSOL SCH ×4 (06:26→22:25)
[2017-11-19] MEDS: BUDESONIDE INH.SOLN 0.5mg/2ml NEB AEROSOL SCH ×2 (06:26→22:25)
[2017-11-19] MEDS: MULTI-VIT + MINERAL (Opti-gen) TABLET PO SCH (08:43)
[2017-11-19] MEDS: TRAMADOL 50 MG TABLET PO PRN (08:43)
[2017-11-19] MEDS: CIPROFLOXACIN 500 MG TABLET PO SCH ×2 (08:43→21:06)
[2017-11-19] MEDS: PANTOPRAZOLE 40 MG TABLET PO SCH ×2 (08:43→21:06)
[2017-11-19] MEDS: ASCORBIC ACID 500 MG TABLET PO SCH (08:43)
[2017-11-19] MEDS: LORATADINE 10 MG TABLET PO SCH (08:43)
[2017-11-19] MEDS: BUMETANIDE 1 MG TABLET PO SCH ×2 (08:44→14:58)
[2017-11-19] MEDS: CYANOCOBALAMIN (B-12) 500mcg TABLET PO SCH (08:44)
[2017-11-19] MEDS: NICOTINE PATCH REMOVAL TD SCH (08:47)
[2017-11-19] MEDS: NICOTINE 14 MG PATCH TD SCH (08:47)
[2017-11-19] MEDS: SALINE FLUSH 10ml SYRINGE IVF PRN (10:17)
--- NOTE | 2017-11-19 10:20 | Progress Note ---
- Date 11/19/17 Subjective: Patient was seen this morning eating breakfast. He states he had quite a bit of pain in the right leg overnight last night. He denies any chest pain, he continues to have shortness of breath and is currently on Vapotherm. He denies fever or chills, nausea or vomiting. He would like to know "where we are at with the cancer." Objective Vital signs: Temperature 98.1 F 11/19/17 07:47 Pulse Rate 65 11/19/17 08:00 Respiratory Rate 26 H 11/19/17 07:47 Blood Pressure 92/52 11/19/17 07:47 Pulse Oximetry 99 11/19/17 07:47 Rhythm: Atrial Fibrillation with Normal Ventricular Rate Height/Weight/BMI: Height 1.88 m Weight 114.7 kg - Constitutional Present: no acute distress, well nourished, well developed - Routine HEENT Exam Head: Present: normocephalic, atraumatic - Routine Respiratory Exam Present: decreased breath sounds, wheezes (ANA) Comments: currently on vapotherm coarse exp sounds b/l lower lungs - Routine Cardiovascular Exam Present: RRR, no murmur - Routine Abdominal Exam Present: soft, non distended, non tender - Routine Extremities Exam Present: edema (continues to have marked edema to R leg>L with erythema to b/l lower legs but worse on R. ), normal capillary refill - Routine Skin Exam Present: dry, warm - Routine Neurological Exam Present: alert, oriented X3 - Routine Lymphatic Exam Lymphatic: Absent: adenopathy - Routine Psychiatric Exam Present: normal affect, cooperative Results - Labs CBC & Chem 7: 11/19/17 03:50 11/19/17 03:50 Microbiology Results: Microbiology 11/15/17 14:13 Peripheral/Iv Start Blood Culture - Preliminary No Growth After 3 Days 11/15/17 14:19 Peripheral/Iv Start Blood Culture - Preliminary No Growth After 3 Days 11/15/17 15:08 Urine, Voided (Cc/notcc) Urine Culture - Final No Growth After 2 Days Assessment and Plan (1) Acute on chronic respiratory failure with hypoxia and hypercapnia Current visit: Yes Status: Acute Assessment and Plan: Assessment Acute respiratory failure with hypoxia Pulmonary embolism-right middle and lower lobes (despite chronic anticoagulation with warfarin and current INR of 5.3) Nonocclusive DVT-right superficial femoral vein-DVT originally identified [facility] several weeks ago Left upper lobe pulmonary nodules-suspicious for metastatic disease Cellulitis right lower extremity COPD-chronic O2 - w/ possible exacerbation Chronic respiratory failure with hypoxia-home Trilogy CHF-rule out acute exacerbation Hypertension Valvular heart disease-moderate (based on echo 08/15) CKD (ave creatinine 1.5) Paroxysmal atrial fibrillation with chronic anticoagulation with warfarin Supratherapeutic INR- present on admission Osteoarthritis History of prostate cancer - treated with radiation History of colon cancer-with surgical excision History of tobacco addiction-quit one month ago History of TIA GERD Urethral stricture Chronic lymphedema AAA, 3 cm Normocytic anemia-POA (Labs done 10/26/17: Fe 40, TIBC 323, Sat 12%, transferrin 217, ferritin 30, B12 1452, folate 13.1). Anemia likely chronic ds and chronic blood loss secondary to anticoagulation Plan Vancomycin day #5, Cipro day #2 for cellulitis. White count has been normal throughout his stay. No further fevers. Hgb 8.0-->7.4. Continue to monitor. INR 2.18 today- poss Angela placement when INR is subtherapeutic. Continue heparin gtt as INR drifts down. Kidney function continues to improve 1.7-->1.6-->1.5. Suspect improvement related to increased diuresis. Zaroxolyn 5 mg po given this morning, will continue Bumex 1 mg by mouth twice a day Currently on Vapotherm with O2 flow rate 37 L/min Discussed w/ patient, further w-u/intervention re: pulmonary nodules would consist of PET scan once pt is dismissed. Patient continues with guerra. Continue for diuresis and accurate I&O. High risk medication in use - heparin. DVT Prophylaxis: SQ Heparin Resuscitation Status: Do Not Resuscitate - Physician Narrative Physician: Mattie Cruz MD Narrative: Date: 11/19/17 Time: 2199 I have independently evaluated and examined this patient. I reviewed the chart, the patient's history, and the SCIENTIFIC SOFTWARE ENGINEER/PA's documented findings as above. We discussed and formulated the assessment and plan as above with additions as below: Mr. Chan reports he didn't sleep well again last night and doesn't remember most of Sunday-I reminded him that he slept all day yesterday. He feels more comfortable with Vapotherm than he did wearing BiPAP all day yesterday. He reports some cough but no chest pain. Respirations are nonlabored but diminished breath sounds are present at the bases bilaterally Persistent bilateral edema R>>L, erythema fading but legs are again elevated today and always appear better when legs are elevated then when dependent Diuresis improved with Zaroxolyn; will continue 5 mg Zaroxolyn daily-monitor electrolytes closely. Fluid restriction initiated. Therapeutic heparin; INR slowly improving but remains therapeutic at present precluding green filter placement at this time. Discussed with Dr. Davis-PET scan to be scheduled as an outpatient. Discussed with Dr. Pedersen. Hospital Course Summary Disclaimer: The visit summary below is not to be considered part of the above Progress Note. Hospital Course: 11/15/17 Admit, inpatient. Expect stay to exceed 2 overnights given severity of his respiratory failure requiring BiPAP and further workup given his new findings of pulmonary nodules. Start heparin drip for PE/DVT, suspect patient may have warfarin resistance. Pharmacy to manage. Pt was DC'd from [facility] on apixaban but states he didn't take it due to cost. BiPAP/Vapotherm PRN. DuoNeb's 4 times a day. Budesonide BID. (On documentation from [facility], Advair and Spiriva are listed as outpatient pulmonary meds) Continue home Bumex 1mg BID for CHF. Daily weights and I&O's. Consult Dr. Dhaliwal and Dr Davis/Miguelito regarding pulmonary nodules. Consult Dr. Pedersen re: placement of angela filter. Vancomycin for tx of cellulitis. Pharmacy to manage. Heparin for VTE treatment/prophylaxis. Avoid SCDs given his significant extremity cellulitis. Check TSH, CEA, PSA and repeat BMP and CBC in am given his h/o colon and prostate cancer and to follow electrolytes, renal function and blood counts. Pantoprazole for GERD and GI prophylaxis. DNR. Daughter Shayna (lives in [place]) is patient's DPOA-H. PCP-Otto Hardy 11/16/17 CEA elevated, PSA nl. Dr Mercer consulted and recommended CT abd/pelvis which showed no evidence for mets. Recommends OP PET scan. Currently on 5L O2 per nasal canula. Requires BiPAP at night and prn. Hgb dropped from 9.2 to 7.6 this am. Repeat hgb this afternoon was 8.0. Repeat in am. Pt continues on vancomycin (Day2) for cellulitis. Tmax 100.2 this am at 0746. Cont Heparin for VTE treatment/prophylaxis. Once INR normalizes, Dr. Pedersen will consider placement of Angela filter. 11/17/17 Vancomycin day #3 for cellulitis. White count has been normal throughout his stay. No further fevers. Hemoglobin lower again today. 9.2--7.6--8.0--7.6. Follow closely. Patient had B12/folate and iron studies performed during recent hospitalization in [place]. Likely has chronic blood loss secondary to anticoagulation. Weight is up 2.5kg since admission. CXR suggestive of pulmonary edema. Give additional 1mg Bumex IV. Creatinine has progressively worsened. 0.3--1.6--1.7. Will see if this improves with diuresis. Levsin added for bladder spasm. Vancomycin level being checked this evening-may require dose adjustment with slight increased creatinine. 11/18/17 Vancomycin day #4 for cellulitis. White count has been normal throughout his stay. No further fevers. Add Cipro for gram-negative coverage-patient reports he is tolerated this well previously. Hgb improved to 8.0. INR down to 2.8; poss [place] placement when INR is subtherapeutic. Continue heparin gtt as INR drifts down. Diuresed yesterday with Bumex IV x1. Weight is down 3 kg and creatinine improved to 1.6. Continue oral bumex. Mg stable at 1.7. 11/19/17 Vancomycin day #5, Cipro day #2 for cellulitis. Hgb 8.0-->7.4. Continue to monitor. INR 2.18 today Kidney function continues to improve 1.7-->1.6-->1.5. Suspect improvement related to increased diuresis. Zaroxolyn 5 mg po given this morning, will continue Bumex 1 mg by mouth twice a day Currently on Vapotherm with O2 flow rate 37 L/min Addendum entered and electronically signed by DUGLAS Muñoz 11/19/17 13:10 : Pt c/o dizziness and, in general, just not feeling right. States he feels like he is going "to explode." He also mentions that he is constipated. Would like Senna-S. Vitals are stable. Give Ativan 0.5mg IV now.
--- NOTE | 2017-11-19 10:21 | Progress Note ---
<Vida Dumont - Last Filed: 11/19/17 13:19> Oncology Subjective Reclining in hospital bed, alone in room. Alert, responds to questions appropriately. Denies pain currently. Feels his breathing " is a little better." Continues to complain of diplopia;denies headaches. Intermittent right leg pain; no other complaints. Reports loose stool 1X yesterday. General: No fever, no night sweats Eyes: No redness, no pain, no diplopia ENT: No mouth sores, no trouble swallowing Cardiac: No chest pain no palpitations Pulmonary: + cough, + shortness of breath, no wheezing Abdomen: No pain, no nausea/ vomiting, loose stools : + guerra Musculoskeletal: No arthritis, no myalgias Neurological: No headaches, no focal weakness Skin: No rash, no sores Psychiatric: No anxiety, no depression Exam Vital signs: Temperature 98.1 F 11/19/17 07:47 Pulse Rate 65 11/19/17 08:00 Respiratory Rate 26 H 11/19/17 07:47 Blood Pressure 92/52 11/19/17 07:47 Pulse Oximetry 99 11/19/17 07:47 Narrative: Generic Name Dose Route Start Last Admin Trade Name Freq PRN Reason Stop Dose Admin Acetaminophen 1,000 mg 11/15/17 19:01 11/16/17 09:08 Tylenol PO 1,000 mg Q5H PRN Administration Pain Albuterol/Ipratropium 3 ml 11/15/17 19:00 11/19/17 10:40 Duoneb AEROSOL 3 ml RTQID KEVYN Administration Ascorbic Acid 500 mg 11/16/17 09:00 11/19/17 08:43 Vitamin C PO 500 mg DAILY KEVYN Administration Budesonide 0.5 mg 11/16/17 07:00 11/19/17 06:26 Pulmicort Inhalation AEROSOL 0.5 mg RTBID KEVYN Administration Bumetanide 1 mg 11/18/17 09:00 11/19/17 08:44 Bumex 1 Mg Tab PO 1 mg [id number] KEVYN Administration Ciprofloxacin 500 mg 11/18/17 21:00 11/19/17 08:43 Cipro 500 Mg PO 500 mg Q12HR KEVYN Administration Cyanocobalamin 1,000 mcg 11/16/17 09:00 11/19/17 08:44 Vit. B-12 PO 1,000 mcg DAILY KEVYN Administration Hyoscyamine 0.125 mg 11/17/17 16:47 11/18/17 23:17 Levsin PO 0.125 mg Q4H PRN Administration Bladder spasms Heparin Sodium (Porcine) 20,000 unit in 500 mls @ 37 mls/hr 11/15/17 20:00 07:00 Heparin Drip IV 37 mls/hr .[id number] KEVYN Infusion Vancomycin HCl 1,250 mg/ 250 mls @ 200 mls/hr 11/16/17 10:00 11/19/17 11:15 Sodium Chloride IV Infused Q18H KEVYN Infusion Loratadine 10 mg 11/16/17 09:00 11/19/17 08:43 Claritin PO 10 mg DAILY KEVYN Administration Multivitamins/Minerals 1 tab 11/16/17 09:00 11/19/17 08:43 Vision PO 1 tab DAILY KEVYN Administration Nicotine 14 mg 11/16/17 10:45 11/19/17 08:47 Nicoderm TD 14 mg DAILY KEVYN Administration Nicotine 1 removal 11/17/17 09:00 11/19/17 08:47 Nicotine Patch Removal TD 1 removal DAILY KEVYN Administration Pantoprazole Sodium 40 mg 11/15/17 21:00 11/19/17 08:43 Protonix Tab PO 40 mg BID KEVYN Administration Prochlorperazine Edisylate 10 mg 11/19/17 12:08 11/19/17 12:11 Compazine Iv IVP 10 mg Q6H PRN Administration Nausea &/or vomiting Sodium Chloride 10 - 80 ml 11/15/17 13:35 11/19/17 10:17 Iv Flush IVF 10 ml PRN PRN Administration Flushing Tamsulosin HCl 0.4 mg 11/15/17 21:00 11/18/17 20:07 Flomax PO 0.4 mg HS KEVYN Administration Tramadol HCl 50 mg 11/15/17 19:01 11/19/17 08:43 Ultram PO 50 mg Q8H PRN Administration Pain Discontinued Medications Generic Name Dose Route Start Last Admin Trade Name Freq PRN Reason Stop Dose Admin Albuterol/Ipratropium 3 ml 11/15/17 13:35 11/16/17 07:45 Duoneb IH 11/15/17 13:36 3 ml ONCE ONE Administration Bumetanide 1 mg 11/15/17 21:00 11/17/17 09:43 Bumex 1 Mg Tab PO 1 mg BID KEVYN Administration Bumetanide 1 mg 11/17/17 17:00 11/17/17 18:14 Bumex 1 Mg Tab PO 1 mg [id number] KEVYN Administration Bumetanide 1 mg 11/17/17 11:42 11/17/17 12:24 Bumex 1 Mg/4 Ml Inj. IVP 11/17/17 11:43 1 mg O ONE Administration Heparin Sodium (Porcine) 1 each 11/15/17 18:29 Pharmacy Consult - Heparin 11/15/17 18:30 ONE TIME ONE Vancomycin HCl 2,000 mg/ 500 mls @ 250 mls/hr 11/15/17 20:40 11/15/17 23:55 Sodium Chloride IV 11/15/17 20:41 Infused O ONE Infusion Magnesium Sulfate/Dextrose 1 gm in 100 mls @ 100 mls/hr 11/16/17 09:30 13:47 Mag Sulf 1gm Premix IV 11/16/17 11:29 Infused Q1H KEVYN Infusion Lidocaine HCl 20 ml 11/15/17 14:44 11/15/17 14:51 Urojet MM 11/15/17 14:45 20 ml O ONE Administration Metolazone 5 mg 11/19/17 09:00 11/19/17 08:44 Zaroxolyn PO 11/19/17 09:01 5 mg DAILY KEVYN Administration Morphine Sulfate 2 mg 11/15/17 13:44 11/15/17 13:59 Morphine Sulf 2 Mg Inj IVP 11/15/17 13:45 2 mg O ONE Administration Nicotine 14 mg 11/15/17 15:58 11/15/17 16:05 Nicoderm TD 11/15/17 15:59 14 mg O ONE Administration Vancomycin HCl 1 each 11/15/17 19:32 11/15/17 22:45 Pharmacy Consult - Vancomycin 11/15/17 19:33 1 each O ONE Administration - Constitutional no acute distress, cooperative - Routine HEENT Exam Head: Present: normocephalic Eye: Present: EOMI ENT: Present: mucous membranes moist - Routine Neck Exam Present: supple. Absent: lymphadenopathy - Routine Respiratory Exam Present: decreased breath sounds. Absent: wheezes, crackles - Routine Cardiovascular Exam Present: RRR, no murmur - Routine Abdominal Exam Present: soft, non tender - Routine Extremities Exam Present: edema, full ROM (2+ - 3+ edema rossy. feet, lower legs, R> L) - Routine Back/Spine/Pelvis Exam Back/Spine: Absent: vertebral tenderness - Routine Skin Exam Present: dry, warm - Routine Neurological Exam Present: alert, normal speech - Routine Psychiatric Exam Present: normal affect, cooperative Oncology Results - Labs CBC & Chem 7: 11/19/17 03:50 11/19/17 03:50 Labs: Short CBC 11/19/17 Range/Units 03:50 WBC 4.9 (4.5-11.0) T/MM3 Hgb 7.4 L (13.5-17.5) GM/DL Hct 23.8 L (41-53) % Plt Count 255 (130-400) T/MM3 [facility] 11/19/17 03:50 Sodium 141 Potassium 3.9 Chloride 102 Carbon Dioxide 32 H BUN 20.0 Creatinine 1.5 Glucose 104 Calcium 8.2 L Assessment and Plan Assessment and Plan: 1. New findings pulmonary nodules on CT angiogram in patient with history of prostate cancer and colon cancer. Continues with complaint of diplopia. Denies headaches. Consideration for MRI brain; unable to lie flat/still to obtain MRI head currently; states " I think I could do that in a couple days." 2. Pulmonary embolism recurrent and chronic. On heparin drip. INR slowly improving-today INR is 2.18, PTT 51.8 3. History of colon cancer; CEA elevated at 8.0. CT scan of the abdomen and pelvis done; negative for metastatic disease. Recommmend PET scan as outpatient. 4. Distant history of prostate cancer with normal PSA 5. A-fib, on chronic anticoag w/ warfarin. Currently on heparin drip with INR slowly improving, today INR is 2.18, PTT is 51.8. 6. Multiple comorbidities of acute respiratory failure w/ hypoxia, COPD/chronic O2 use, CHF, cellulitis right lower extremity, valvular disease, chronic kidney disease, urethral stricture, chronic lymphedema. Plan Continue supportive care. Plan further testing as condition stabilize/improves. - Time Spent With Patient Total time spent is greater than 50% in coordination of care (as documented) at patient's floor/unit and/or counseling patient: 25 - 35 minutes <SusanHector Toby - Last Filed: 11/19/17 18:43> Exam Vital signs: Temperature 98.1 F 11/19/17 07:47 Pulse Rate 86 11/19/17 16:00 Respiratory Rate 28 H 11/19/17 17:59 Blood Pressure 129/66 11/19/17 12:40 Pulse Oximetry 97 11/19/17 17:59 Oncology Results - Labs CBC & Chem 7: 11/19/17 03:50 11/19/17 03:50 Labs: Short CBC 11/19/17 Range/Units 03:50 WBC 4.9 (4.5-11.0) T/MM3 Hgb 7.4 L (13.5-17.5) GM/DL Hct 23.8 L (41-53) % Plt Count 255 (130-400) T/MM3 BMP 11/19/17 03:50 Sodium 141 Potassium 3.9 Chloride 102 Carbon Dioxide 32 H BUN 20.0 Creatinine 1.5 Glucose 104 Calcium 8.2 L Assessment and Plan Assessment and Plan: Patient examined, chart reviewed I participated in the development of the plan of care of this patient with Jazz Dumont. Currently on high flow O2. His cardiac and pulmonary status limits the availability of evaluation. Lung nodules would be best evaluated with PET scan continues on heparin drip for recurrent pulmonary embolism. We'll continue supportive care and hopefully be able to do further evaluation if performance status improves. - Time Spent With Patient Total time spent is greater than 50% in coordination of care (as documented) at patient's floor/unit and/or counseling patient:
[2017-11-19] MEDS ORDERED: PROCHLORPERAZINE 10 MG/2 ML INJECTION IVP PRN (12:08)
[2017-11-19] MEDS ORDERED: SENNA + DOCUSATE TABLET PO ONE (13:08)
[2017-11-19] MEDS: HEPARIN DRIP 20,000 UNIT/500 ML BAG IV SCH (13:43)
[2017-11-19] MEDS ORDERED: FALL RISK - PHARMACY CONSULT MC ONE (17:11)
[2017-11-19] MEDS ORDERED: ALBUTEROL/IPRATROPIUM 2.5mg-0.5mg/3ml NEB AEROSOL PRN (17:57)
[2017-11-19] MEDS: TAMSULOSIN 0.4 MG CAPSULE PO SCH (21:06)
[2017-11-20] MEDS: HEPARIN DRIP 20,000 UNIT/500 ML BAG IV SCH ×3 (02:50→23:55)
[2017-11-20] MEDS: TRAMADOL 50 MG TABLET PO PRN (05:23)
[2017-11-20] MEDS ORDERED: BISACODYL 10 MG SUPPOSITORY RECTALLY PRN (06:19)
[2017-11-20] MEDS: ALBUTEROL/IPRATROPIUM 2.5mg-0.5mg/3ml NEB AEROSOL SCH ×4 (07:30→19:54)
[2017-11-20] MEDS: BUDESONIDE INH.SOLN 0.5mg/2ml NEB AEROSOL SCH ×2 (07:30→19:53)
[2017-11-20] MEDS: SENNA + DOCUSATE TABLET PO SCH ×2 (07:35→08:52)
--- NOTE | 2017-11-20 08:07 | Pharmacy Consult ---
Pharmacy Consult-Heparin - Laboratory Information Heparin Plt Count 262 T/MM3 (130-400) 11/20/17 06:35 APTT 55.2 SEC (24-36) H 11/20/17 06:35 - Consult Information HEPARIN CONSULT (Recurring): PTT = 55.2 Sec. Patient's INR is now down to 1.65 Therapeutic Range for Heparin Non-Cardiac Regimen is PTT 55-83 Platelet count = 262 T/mm3. Will adjust Heparin Drip to 1720 units/hr (43 ml/hr). (Increased from 41 ml/hr) Will recheck PTT and adjust regimen as needed. Thank you. Rosalba Ortez, PharmD
[2017-11-20] MEDS: NICOTINE 14 MG PATCH TD SCH (08:49)
[2017-11-20] MEDS: NICOTINE PATCH REMOVAL TD SCH (08:50)
[2017-11-20] MEDS: CYANOCOBALAMIN (B-12) 500mcg TABLET PO SCH (08:51)
[2017-11-20] MEDS: MULTI-VIT + MINERAL (Opti-gen) TABLET PO SCH (08:52)
[2017-11-20] MEDS: ASCORBIC ACID 500 MG TABLET PO SCH (08:52)
[2017-11-20] MEDS: PANTOPRAZOLE 40 MG TABLET PO SCH ×2 (08:52→20:30)
[2017-11-20] MEDS: CIPROFLOXACIN 500 MG TABLET PO SCH ×2 (08:52→20:31)
[2017-11-20] MEDS: BUMETANIDE 1 MG TABLET PO SCH ×2 (08:52→13:20)
[2017-11-20] MEDS: LORATADINE 10 MG TABLET PO SCH (08:52)
[2017-11-20] MEDS ORDERED: MAGNESIUM SULFATE 1gm PREMIX 1 GM/100 ML BAG IV ONE (09:01)
[2017-11-20] MEDS ORDERED: acetaZOLAMIDE 250 MG TABLET PO ONE (10:11)
--- NOTE | 2017-11-20 10:39 | Progress Note ---
- Date 11/20/17 Subjective: Patient is seen sitting up after breakfast. He thinks the leg hurts less. He didn't sleep well last night. Breathing isn't much better. He wonders if his heart could be causing his SOA. No CP, n/v, f/c. Objective Vital signs: Temperature 96.8 F 11/20/17 07:14 Pulse Rate 89 11/20/17 08:00 Respiratory Rate 22 11/20/17 07:30 Blood Pressure 133/70 11/20/17 07:14 Pulse Oximetry 99 11/20/17 07:30 Rhythm: Atrial Fibrillation with Normal Ventricular Rate Height/Weight/BMI: Height 1.88 m Weight 115.2 kg - Constitutional Present: no acute distress, well nourished, well developed - Routine HEENT Exam Head: Present: normocephalic, atraumatic - Routine Respiratory Exam Present: decreased breath sounds, wheezes Comments: lungs sound mostly clear today - Routine Cardiovascular Exam Present: irregular rhythm - Routine Abdominal Exam Present: soft, non distended, non tender - Routine Extremities Exam Present: edema (continues to have erythema and edema to the R lower leg >LLL. RLL is less tender and less warm.), normal capillary refill - Routine Skin Exam Present: dry, warm - Routine Neurological Exam Present: alert, oriented X3 - Routine Lymphatic Exam Lymphatic: Absent: adenopathy - Routine Psychiatric Exam Present: normal affect, cooperative Results - Labs CBC & Chem 7: 11/20/17 06:35 11/20/17 06:35 Microbiology Results: Microbiology 11/15/17 14:13 Peripheral/Iv Start Blood Culture - Preliminary No Growth After 4 Days 11/15/17 14:19 Peripheral/Iv Start Blood Culture - Preliminary No Growth After 4 Days 11/15/17 15:08 Urine, Voided (Cc/notcc) Urine Culture - Final No Growth After 2 Days Assessment and Plan Assessment and Plan: Assessment Acute respiratory failure with hypoxia Pulmonary embolism-right middle and lower lobes (despite chronic anticoagulation with warfarin and current INR of 5.3) Nonocclusive DVT-right superficial femoral vein-DVT originally identified [facility] several weeks ago Left upper lobe pulmonary nodules-suspicious for metastatic disease Cellulitis right lower extremity COPD-chronic O2 - w/ possible exacerbation Chronic respiratory failure with hypoxia-home Trilogy CHF-rule out acute exacerbation Hypertension Valvular heart disease-moderate (based on echo 08/15) CKD (ave creatinine 1.5) Paroxysmal atrial fibrillation with chronic anticoagulation with warfarin Supratherapeutic INR- present on admission Osteoarthritis History of prostate cancer - treated with radiation History of colon cancer-with surgical excision History of tobacco addiction-quit one month ago History of TIA GERD Urethral stricture Chronic lymphedema AAA, 3 cm Normocytic anemia-POA (Labs done 10/26/17: Fe 40, TIBC 323, Sat 12%, transferrin 217, ferritin 30, B12 1452, folate 13.1). Anemia likely chronic ds and chronic blood loss secondary to anticoagulation Obesity with BMI 32.6 Plan Vancomycin day #6, Cipro day #3 for cellulitis. White count has been normal throughout his stay. No further fevers. Hgb 8.0-->7.4-->7.6. Continue to monitor. Magnesium low - IV replacement given and started on 400mg BID po. INR 1.65 today- poss [place] placement tomorrow by Dr. Pedersen. Continues on heparin gtt. Dr. Pedersen indicated he would put in the orders for NPO and holding the Heparin. Kidney function stable. Currently on Bumex 1 mg by mouth twice a day Currently on Vapotherm with O2 flow rate 25 L/min, down from 37. Currently trying to get copy of echo from previous hospital stay in [place]. Diamox given x 1 for hypercapnia. Discussed w/ patient, further w-u/intervention re: pulmonary nodules would consist of PET scan once pt is dismissed. Patient continues with Siddiqui. Continue for diuresis and accurate I&O. High risk medication in use - heparin. DVT Prophylaxis: Heparin drip Resuscitation Status: Do Not Resuscitate - Time spent with patient Time with patient PN: 25 minutes - Physician Narrative Physician: Bob Zurita MD Narrative: Date: 11/20/17 Time: 1018 Have independently interviewed & examined pt. Chart reviewed. Case discussed with my PA. Care plan developed with my supervision; agree with above. Feeling about the same-still very SOA. Reports can't be up much do to all the tubes (Vapotherm, Heparin drip, IV antibiotics). Feels legs less red since Levaquin started. Ab feels bloated-not had bowel movement in 4 days per his report. Lungs: decreased, basilar bunting. CV: irregular AB: soft distention, nt BS decreased MSE: awake alert Plan: Continue with antibiotic therapy for cellulitis. Continue with Lasix to help motivate fluid - Diamox as CO2 with increase. Encourage elevation and compression to legs. INR trending down-hope for Angela filter placement tomorrow. Monitor lab. Hospital Course Summary Disclaimer: The visit summary below is not to be considered part of the above Progress Note. Hospital Course: 11/15/17 Admit, inpatient. Expect stay to exceed 2 overnights given severity of his respiratory failure requiring BiPAP and further workup given his new findings of pulmonary nodules. Start heparin drip for PE/DVT, suspect patient may have warfarin resistance. Pharmacy to manage. Pt was DC'd from [facility] on apixaban but states he didn't take it due to cost. BiPAP/Vapotherm PRN. DuoNeb's 4 times a day. Budesonide BID. (On documentation from [facility], Advair and Spiriva are listed as outpatient pulmonary meds) Continue home Bumex 1mg BID for CHF. Daily weights and I&O's. Consult Dr. Dhaliwal and Dr Davis/Miguelito regarding pulmonary nodules. Consult Dr. Pedersen re: placement of angela filter. Vancomycin for tx of cellulitis. Pharmacy to manage. Heparin for VTE treatment/prophylaxis. Avoid SCDs given his significant extremity cellulitis. Check TSH, CEA, PSA and repeat BMP and CBC in am given his h/o colon and prostate cancer and to follow electrolytes, renal function and blood counts. Pantoprazole for GERD and GI prophylaxis. DNR. Daughter Shayna (lives in [place]) is patient's DPOA-H. PCP-Otto Hardy 11/16/17 CEA elevated, PSA nl. Dr Mercer consulted and recommended CT abd/pelvis which showed no evidence for mets. Recommends OP PET scan. Currently on 5L O2 per nasal canula. Requires BiPAP at night and prn. Hgb dropped from 9.2 to 7.6 this am. Repeat hgb this afternoon was 8.0. Repeat in am. Pt continues on vancomycin (Day2) for cellulitis. Tmax 100.2 this am at 0746. Cont Heparin for VTE treatment/prophylaxis. Once INR normalizes, Dr. Pedersen will consider placement of [place] filter. 11/17/17 Vancomycin day #3 for cellulitis. White count has been normal throughout his stay. No further fevers. Hemoglobin lower again today. 9.2--7.6--8.0--7.6. Follow closely. Patient had B12/folate and iron studies performed during recent hospitalization in [place]. Likely has chronic blood loss secondary to anticoagulation. Weight is up 2.5kg since admission. CXR suggestive of pulmonary edema. Give additional 1mg Bumex IV. Creatinine has progressively worsened. 0.3--1.6--1.7. Will see if this improves with diuresis. Levsin added for bladder spasm. Vancomycin level being checked this evening-may require dose adjustment with slight increased creatinine. 11/18/17 Vancomycin day #4 for cellulitis. White count has been normal throughout his stay. No further fevers. Add Cipro for gram-negative coverage-patient reports he is tolerated this well previously. Hgb improved to 8.0. INR down to 2.8; poss [place] placement when INR is subtherapeutic. Continue heparin gtt as INR drifts down. Diuresed yesterday with Bumex IV x1. Weight is down 3 kg and creatinine improved to 1.6. Continue oral bumex. Mg stable at 1.7. 11/19/17 Vancomycin day #5, Cipro day #2 for cellulitis. Hgb 8.0-->7.4. Continue to monitor. INR 2.18 today Kidney function continues to improve 1.7-->1.6-->1.5. Suspect improvement related to increased diuresis. Zaroxolyn 5 mg po given this morning, will continue Bumex 1 mg by mouth twice a day Currently on Vapotherm with O2 flow rate 37 L/min 11/20/17 Vancomycin day #6, Cipro day #3 for cellulitis. White count has been normal throughout his stay. No further fevers. Hgb 8.0-->7.4-->7.6. Continue to monitor. Magnesium low - IV replacement given and started on 400mg BID po. INR 1.65 today- poss [place] placement tomorrow by Dr. Pedersen. Continues on heparin gtt. Dr. Pedersen indicated he would put in the orders for NPO and holding the Heparin. Currently on Vapotherm with O2 flow rate 25 L/min, down from 37. Diamox given x 1 for hypercapnia.
--- NOTE | 2017-11-20 11:10 | Consultation ---
DATE OF CONSULTATION 11/19/2017 CONSULTING PHYSICIAN Sadiq Pedersen MD REQUESTING PHYSICIAN Dr. Cruz REASON FOR CONSULTATION DVT/PE despite anticoagulation. IMPRESSION 1. Right-sided pulmonary emboli. 2. Right lower extremity DVT. 3. Personal history of colon cancer. 4. Left upper lobe pulmonary nodule - possible metastasis. 5. Chronic Coumadin anticoagulation. 6. Supratherapeutic INR. 7. Acute respiratory failure - improving. 8. Paroxysmal atrial fibrillation - chronic. 9. Congestive heart failure - chronic. 10. COPD - chronic. RECOMMENDATIONS 1. As discussed by telephone previously, I would recommend anticoagulation with a heparin drip so that his INR can drift down slowly. 2. Consideration of [place] filter will need to be made finally when his INR has been reversed and the plan of Pulmonology and Oncology is made. 3. He will need to be recovered from a respiratory standpoint well enough to tolerate the procedure in a supine position. HISTORY OF PRESENT ILLNESS Papito is an 82-year-old male who is last known to my surgical practice from an incarcerated inguinal hernia repair in January 2013. He does have a history of colon cancer that was treated by resection by Dr. Pete Mello in [place]. He has a complicated medical history including a history of bilateral lower extremity DVTs. Recently he was diagnosed at [facility] with a right lower extremity DVT. He was dismissed from [facility] on approximately 11/04/2017. The day after his release, he did have a fall. He reports trauma to the chest with his fall. He was on some antibiotics for cellulitis of his right lower extremity. He has been on warfarin for years due to his history of atrial fibrillation. Because of his blood clot, he was switched to Eliquis but the prescription was denied by his insurance and so he had remained on warfarin. He does report that he has been having more trouble breathing. He uses BiPAP at home. He came to the emergency department due to his increased shortness of breath and a near collapse. His INR was 5.3 but workup had revealed a right-sided PE. He was also noted to have a pulmonary nodule concerning for metastasis. He was admitted for care at [facility] and has been under the care of the hospitalist team. Originally we had spoken by phone about the option of a heparin drip until his Coumadin effect had worn off. He has improved slightly in the hospital and says that his leg feels better. His INR has remained high with an INR of 2.18 this morning. PAST MEDICAL HISTORY 1. Colon cancer of the ascending colon - diagnosed in 2012 and treated with surgical resection. 2. Paroxysmal atrial fibrillation. 3. Stroke x2 with no residual deficits. 4. Hypertension. 5. DVT of both lower extremities - recent right lower extremity DVT which is ongoing. 6. Prostate cancer - treated with radiation. 7. Osteoarthritis. 8. COPD. 9. Congestive heart failure. 10. Chronic respiratory failure. 11. Valvular heart disease with moderate aortic stenosis. 12. Chronic kidney disease. 13. History of tobacco addiction. 14. Gastroesophageal reflux disease. 15. Urethral stricture. 16. Chronic lymphedema. 17. Cataracts. 18. Seasonal allergies. 19. Hiatal hernia. PAST SURGICAL HISTORY 1. Right inguinal hernia repair - . 2. Left inguinal hernia repair - early 1999. 3. Prostate biopsy. 4. Bilateral cataract extractions. 5. EGD - 07/23/[address] Pedersen at [facility]. 6. Colonoscopy with polypectomy x3 and biopsies of ascending colon cancer - by Dr. Pedersen at [facility]. 7. Laparoscopic colon resection - 2012 in [place] [address] Pete Mello 8. Repeat abdominal operation due to "obstruction"- three days following colon resection in [address] Mello in [place], [place]. 9. Repair of incarcerated right inguinal hernia repair with mesh - 01/31/[address] Pedersen at [facility]. ALLERGIES Multiple - see EMR. MEDICATIONS The patient's home medications were reviewed. Please see the EMR. SOCIAL HISTORY The patient is . He has six children. His daughter Shayna lives in [place] and is his DPOA. He is a DNR. He recently quit smoking about a month ago but had a history of 60 years of smoking. He drinks alcohol daily. He denies illicit drug use. FAMILY HISTORY Father at 75 of lung cancer. Mother in her 80s and had diabetes. He has a brother who is diabetic. He has a daughter with brain development disorder and seizures. REVIEW OF SYSTEMS 10-point review of systems was negative except for History of Present Illness and the following. HEENT: He reports headaches. NEUROLOGIC: He reports dizziness today. He reports left arm numbness at times. MUSCULOSKELETAL: He reports traumatic chest pain along with joint pain involving the knees and right shoulder. CARDIOVASCULAR: He does have a history of atrial fibrillation. GASTROINTESTINAL: He reports nausea today. HEMATOLOGIC: He is on Coumadin and currently on heparin. He has a current right lower extremity DVT and right-sided pulmonary embolus with a history of bilateral lower extremity DVTs. RESPIRATORY: He does use BiPAP at home. LABORATORY DATA INR this morning was 2.18. IMAGING Reports from CT angiogram of the chest on 11/15/2017 were reviewed. It showed a right-sided pulmonary emboli and left upper lobe pulmonary nodules suspicious for metastatic disease. PHYSICAL EXAMINATION VITAL SIGNS: Temperature 99.2, pulse 85, blood pressure 116/51, respiratory rate 19, oxygen saturation 94% on high-flow nasal cannula with an FiO2 45%. GENERAL: The patient is awake and alert. He is in no acute distress. He is able to sit on the side of the bed. HEENT: Sclerae clear. Extraocular muscles intact. NECK: Supple with a midline trachea. No lymphadenopathy or thyromegaly are noted. HEART: Regular rate and rhythm. LUNGS: Coarse breath sounds bilaterally. ABDOMEN: Obese, soft, nontender, nondistended. EXTREMITIES: He has significant swelling of the right lower extremity but moderate pitting edema of the left lower extremity as well. There is no clubbing or cyanosis noted. NEURO: Cranial nerves II-XII are grossly intact. PSYCHIATRIC: The patient is cooperative to exam but angry about prior medical experiences. He is in a fairly pleasant mood this evening compared to nursing reports. PATIENT EDUCATION I did discuss the basics of [place] filter placement with the patient. This discussion included the risk of bleeding, the rationale for filter placement, the fact that filter placement would not treat his current PE or his current DVT , possible interference with kidney function based on filter malposition and obstruction with clot burden, non-removable nature of the filter being placed, and need for ongoing anticoagulation. He said that he was currently willing to proceed with [place] filter placement. FAHAD
[2017-11-20] MEDS: HYOSCYAMINE 0.125 MG ORAL TABLET PO PRN ×2 (13:20→18:51)
[2017-11-20] MEDS: SENNA + DOCUSATE TABLET PO PRN (18:51)
--- NOTE | 2017-11-20 20:19 | Progress Note ---
DATE OF VISIT 11/20/2017 REASON FOR VISIT Reevaluation before Angela filter. SUBJECTIVE Papito says that he is doing well but still has trouble breathing. OBJECTIVE VITAL SIGNS: Temperature 98.4, pulse 84, blood pressure 101/61, respiratory rate 18, oxygen saturation 99% on high-flow nasal cannula with an FIO2 of 40%. GENERAL: The patient is awake and alert. He is in no acute distress. LUNGS: Good air movement bilaterally. LABORATORY DATA INR this morning was 1.65. IMPRESSION 1. Right-sided pulmonary emboli. 2. Right lower extremity DVT. 3. Personal history of colon cancer. 4. Possible lung metastases. 5. Therapeutic INR - Coumadin on hold. PLAN 1. I think that Papito's INR will be below 1.5 and low enough for intervention tomorrow. 2. The patient is still desiring inferior vena cava filter placement. 3. He will need to stop his diet at midnight but I think he could have a clear liquid breakfast since the plan is for local anesthesia only and n.p.o. status would only be related to any complications from the procedure. 4. He will need his heparin drip stopped for six hours prior to the procedure and six hours following the procedure. PATIENT EDUCATION The procedure was again reviewed with the patient and it was explained that this would only be a method of stopping clots in the lower extremity that might lead to a fatal PE. I did review the pulmonary mass and said that given his overall health there may not be much intervention possible. He had opportunity to ask questions. FAHAD
[2017-11-20] MEDS: TAMSULOSIN 0.4 MG CAPSULE PO SCH (20:30)
[2017-11-20] MEDS: ACETAMINOPHEN 500 MG TABLET PO PRN (20:31)
[2017-11-20] MEDS: MAGNESIUM OXIDE 400 MG TABLET PO SCH (20:31)
[2017-11-20] MEDS: SALINE FLUSH 10ml SYRINGE IVF PRN (23:16)
[2017-11-21] MEDS: HEPARIN DRIP 20,000 UNIT/500 ML BAG IV SCH ×2 (04:05→14:53)
[2017-11-21] MEDS: TRAMADOL 50 MG TABLET PO PRN ×2 (05:11→18:20)
[2017-11-21] MEDS: ALBUTEROL/IPRATROPIUM 2.5mg-0.5mg/3ml NEB AEROSOL SCH ×4 (06:30→20:32)
[2017-11-21] MEDS: BUDESONIDE INH.SOLN 0.5mg/2ml NEB AEROSOL SCH ×2 (06:30→20:32)
--- NOTE | 2017-11-21 07:24 | Pharmacy Consult ---
Pharmacy Consult-Heparin - Laboratory Information Heparin Plt Count 263 T/MM3 (130-400) 11/21/17 05:43 APTT 59.6 SEC (24-36) H 11/21/17 05:43 - Consult Information Heparin Consult: Day 7 Today's PTT was 59.6 sec and the Platelet count was 256.T/mm3. Will continue the heparin as currently ordered at 1,720 units/hr (43 mls.hr), Thanks for the Protocol, Luacs Cabrera, Pharmacist.
[2017-11-21] MEDS: CYANOCOBALAMIN (B-12) 500mcg TABLET PO SCH (09:19)
[2017-11-21] MEDS: ASCORBIC ACID 500 MG TABLET PO SCH (09:20)
[2017-11-21] MEDS: MULTI-VIT + MINERAL (Opti-gen) TABLET PO SCH (09:20)
[2017-11-21] MEDS: BUMETANIDE 1 MG TABLET PO SCH ×2 (09:20→14:53)
[2017-11-21] MEDS: LORATADINE 10 MG TABLET PO SCH (09:21)
[2017-11-21] MEDS: SENNA + DOCUSATE TABLET PO SCH (09:21)
[2017-11-21] MEDS: CIPROFLOXACIN 500 MG TABLET PO SCH ×2 (09:21→20:57)
[2017-11-21] MEDS: MAGNESIUM OXIDE 400 MG TABLET PO SCH ×2 (09:21→20:57)
[2017-11-21] MEDS: NICOTINE PATCH REMOVAL TD SCH (09:22)
[2017-11-21] MEDS: NICOTINE 14 MG PATCH TD SCH (09:22)
[2017-11-21] MEDS: PANTOPRAZOLE 40 MG TABLET PO SCH ×2 (09:26→20:57)
[2017-11-21] MEDS: SALINE FLUSH 10ml SYRINGE IVF PRN (09:29)
[2017-11-21] MEDS ORDERED: NS FLUSH BAG 500ml IV PRN (10:03)
[2017-11-21] MEDS ORDERED: FUROSEMIDE 20 MG/2 ML INJECTION IVP ONE (10:03)
[2017-11-21] MEDS: HYOSCYAMINE 0.125 MG ORAL TABLET PO PRN ×2 (10:07→19:14)
[2017-11-21] MEDS ORDERED: acetaZOLAMIDE SR 500 MG CAPSULE PO ONE (10:16)
--- NOTE | 2017-11-21 10:28 | Progress Note ---
- Date 11/21/17 Subjective: Patient is seen this morning resting in bed. He c/o burning in his urethra when he urinates (he has a guerra in). States it takes his breath away when it happens. Nurse reports pt hasn't had Levsin yet this morning. Patient is planning on having filter placed today with Dr. Pedersen. He's not sure if his breathing is any better. Still complains of pain in the right leg. No f/c. Objective Vital signs: Temperature 97.9 F 11/21/17 07:58 Pulse Rate 91 11/21/17 08:00 Respiratory Rate 16 11/21/17 07:58 Blood Pressure 115/63 11/21/17 07:58 Pulse Oximetry 97 11/21/17 07:58 Rhythm: Atrial Fibrillation with Normal Ventricular Rate Height/Weight/BMI: Height 1.88 m Weight 111.9 kg - Constitutional Present: no acute distress, well nourished, well developed - Routine HEENT Exam Head: Present: normocephalic, atraumatic - Routine Respiratory Exam Present: wheezes (faint), crackles (bases) - Routine Cardiovascular Exam Present: no murmur, irregular rhythm - Routine Abdominal Exam Present: soft, non distended, non tender - Routine Extremities Exam Present: edema (lymphedema RLE with ertyhema), normal capillary refill - Routine Skin Exam Present: dry, warm - Routine Neurological Exam Present: alert, oriented X3 - Routine Lymphatic Exam Lymphatic: Absent: adenopathy - Routine Psychiatric Exam Present: normal affect, cooperative Results - Labs CBC & Chem 7: 11/21/17 05:43 11/21/17 05:43 Microbiology Results: Microbiology 11/15/17 14:13 Peripheral/Iv Start Blood Culture - Final No Growth After 5 Days 11/15/17 14:19 Peripheral/Iv Start Blood Culture - Final No Growth After 5 Days 11/15/17 15:08 Urine, Voided (Cc/notcc) Urine Culture - Final No Growth After 2 Days Assessment and Plan Assessment and Plan: Assessment Acute respiratory failure with hypoxia Pulmonary embolism-right middle and lower lobes (despite chronic anticoagulation with warfarin and current INR of 5.3) Nonocclusive DVT-right superficial femoral vein-DVT originally identified [facility] several weeks ago Left upper lobe pulmonary nodules-suspicious for metastatic disease Cellulitis right lower extremity COPD-chronic O2 - w/ possible exacerbation Chronic respiratory failure with hypoxia-home Trilogy CHF-rule out acute exacerbation Hypertension Valvular heart disease-moderate (based on echo 08/15) CKD (ave creatinine 1.5) Paroxysmal atrial fibrillation with chronic anticoagulation with warfarin Supratherapeutic INR- present on admission Osteoarthritis History of prostate cancer - treated with radiation History of colon cancer-with surgical excision History of tobacco addiction-quit one month ago History of TIA GERD Urethral stricture Chronic lymphedema AAA, 3 cm Normocytic anemia-POA (Labs done 10/26/17: Fe 40, TIBC 323, Sat 12%, transferrin 217, ferritin 30, B12 1452, folate 13.1). Anemia likely chronic ds and chronic blood loss secondary to anticoagulation Obesity with BMI 32.6 Plan Vancomycin day #7, Cipro day #4 for cellulitis. White count normal. Hgb 8.0-->7.4-->7.6-->7.5. Given his SOA and CHF, will transfuse 1U PRBC's. Lasix x1 following transfusion INR 1.41 today- [place] filter placement planned today by Dr. Pedersen. Continues on heparin gtt. (Holding before procedure.) Creatinine up 1.5-->1.8. Currently on Bumex 1 mg by mouth twice a day. Currently on Vapotherm with O2 flow rate 25 L/min. FiO2 40% Echo and consult Dr. Crenshaw re: CHF/SOA. Diamox given x 1 for hypercapnia. Patient continues with Guerra. Continue for diuresis and accurate I&O. Levsin for bladder spasms. DVT Prophylaxis: Heparin drip Resuscitation Status: Do Not Resuscitate - Time spent with patient Time with patient PN: 25 minutes - Physician Narrative Physician: Bob Zurita MD Narrative: Date: 11/21/17 Time: 6 Have independently interviewed and examined pt. Chart reviewed. Case discussed with my PA. Care plan developed with my supervision; agree with above. Doing okay this afternoon. Tolerated Filter placement. Breathing about the same- does like Vapotherm as it helps him to breath better. Little cough/congestion. Not had much stool output (some hard stool charted). Had bad episode of bladder spams this morning. Lungs: decreased breath sounds. CV: regular AB: soft nt BS present MSE: awake alert Plan: Angela filter placed. Will transition from Heparin drip to Eliquis - will need 10mg BID for 7 days then 5mg BID. Encouraged nursing to give pt fleet' s after evening meal tonight to help with bowel function. B&O suppository available prn bladder spasm. Will give 1 unit of pRBC to he cardiopulmonary status. Wean Vapotherm as able. Encourage activities. Hospital Course Summary Disclaimer: The visit summary below is not to be considered part of the above Progress Note. Hospital Course: 11/15/17 Admit, inpatient. Expect stay to exceed 2 overnights given severity of his respiratory failure requiring BiPAP and further workup given his new findings of pulmonary nodules. Start heparin drip for PE/DVT, suspect patient may have warfarin resistance. Pharmacy to manage. Pt was DC'd from [facility] on apixaban but states he didn't take it due to cost. BiPAP/Vapotherm PRN. DuoNeb's 4 times a day. Budesonide BID. (On documentation from [facility], Advair and Spiriva are listed as outpatient pulmonary meds) Continue home Bumex 1mg BID for CHF. Daily weights and I&O's. Consult Dr. Dhaliwal and Dr Davis/Miguelito regarding pulmonary nodules. Consult Dr. Pedersen re: placement of angela filter. Vancomycin for tx of cellulitis. Pharmacy to manage. Heparin for VTE treatment/prophylaxis. Avoid SCDs given his significant extremity cellulitis. Check TSH, CEA, PSA and repeat BMP and CBC in am given his h/o colon and prostate cancer and to follow electrolytes, renal function and blood counts. Pantoprazole for GERD and GI prophylaxis. DNR. Daughter Shayna (lives in [place]) is patient's DPOA-H. PCP-Otto Hardy 11/16/17 CEA elevated, PSA nl. Dr Mercer consulted and recommended CT abd/pelvis which showed no evidence for mets. Recommends OP PET scan. Currently on 5L O2 per nasal canula. Requires BiPAP at night and prn. Hgb dropped from 9.2 to 7.6 this am. Repeat hgb this afternoon was 8.0. Repeat in am. Pt continues on vancomycin (Day2) for cellulitis. Tmax 100.2 this am at 0746. Cont Heparin for VTE treatment/prophylaxis. Once INR normalizes, Dr. Pedersen will consider placement of Angela filter. 11/17/17 Vancomycin day #3 for cellulitis. White count has been normal throughout his stay. No further fevers. Hemoglobin lower again today. 9.2--7.6--8.0--7.6. Follow closely. Patient had B12/folate and iron studies performed during recent hospitalization in [place]. Likely has chronic blood loss secondary to anticoagulation. Weight is up 2.5kg since admission. CXR suggestive of pulmonary edema. Give additional 1mg Bumex IV. Creatinine has progressively worsened. 0.3--1.6--1.7. Will see if this improves with diuresis. Levsin added for bladder spasm. Vancomycin level being checked this evening-may require dose adjustment with slight increased creatinine. 11/18/17 Vancomycin day #4 for cellulitis. White count has been normal throughout his stay. No further fevers. Add Cipro for gram-negative coverage-patient reports he is tolerated this well previously. Hgb improved to 8.0. INR down to 2.8; poss Angela placement when INR is subtherapeutic. Continue heparin gtt as INR drifts down. Diuresed yesterday with Bumex IV x1. Weight is down 3 kg and creatinine improved to 1.6. Continue oral bumex. Mg stable at 1.7. 11/19/17 Vancomycin day #5, Cipro day #2 for cellulitis. Hgb 8.0-->7.4. Continue to monitor. INR 2.18 today Kidney function continues to improve 1.7-->1.6-->1.5. Suspect improvement related to increased diuresis. Zaroxolyn 5 mg po given this morning, will continue Bumex 1 mg by mouth twice a day Currently on Vapotherm with O2 flow rate 37 L/min 11/20/17 Vancomycin day #6, Cipro day #3 for cellulitis. White count has been normal throughout his stay. No further fevers. Hgb 8.0-->7.4-->7.6. Continue to monitor. Magnesium low - IV replacement given and started on 400mg BID po. INR 1.65 today- poss Angela placement tomorrow by Dr. Pedersen. Continues on heparin gtt. Dr. Pedersen indicated he would put in the orders for NPO and holding the Heparin. Currently on Vapotherm with O2 flow rate 25 L/min, down from 37. Diamox given x 1 for hypercapnia. 11/21/17 Vancomycin day #7, Cipro day #4 for cellulitis. White count normal. Hgb 8.0-->7.4-->7.6-->7.5. Given his SOA and CHF, will transfuse 1U PRBC's. Lasix x1 following transfusion INR 1.41 today- [place] filter placement planned today by Dr. Pedersen. Continues on heparin gtt. (Holding before procedure.) Creatinine up 1.5-->1.8. Currently on Bumex 1 mg by mouth twice a day. Currently on Vapotherm with O2 flow rate 25 L/min. FiO2 40% Echo and consult Dr. Crenshaw re: CHF/SOA. Diamox given x 1 for hypercapnia. Patient continues with Guerra. Continue for diuresis and accurate I&O. Levsin for bladder spasms.
[2017-11-21] MEDS ORDERED: LIDOCAINE 1% (10mg/ml) 30ml SDV INJ ONE (12:07)
[2017-11-21] MEDS ORDERED: HEPARIN 1,000 UNITS/500 ML PREMIX (*CVL ONLY*) IV ONE ×2 (12:08→12:14)
--- NOTE | 2017-11-21 12:10 | Cardiology Consult Note ---
History of Present Illness Consult date: 11/21/17 Requesting physician: Bob Zurita Consult reason: shortness of breath Chief complaint: SOA History of present illness: Papito is a 82 year old male who presented to the ED by EMS for increasing shortness of breath. He lives at home alone and has home health services. He had been home for only one day after being hospitalized at [facility] for approximately 5-6 days for "breathing problems." He states he was scheduled to follow-up at the heart failure clinic and with several other specialists,but at this point he doesn't want to see any of them. In the ED, CTA chest was performed which showed a "spiculated mass " suspicious for metastasis and PE. He has a DVT in the right lower extremity, despite taking Coumadin with a current supra therapeutic INR 5.3. He was placed on BiPAP in the ED due to his respiratory status. He is typically on 3.5 L of oxygen at home chronically and sleeps with CPAP. States he quit smoking a month ago. Dr. Crenshaw is consulted for evaluation of heart failure and we appreciate the consult. Last Echo 08/15/17: EF 55-60%, mild LVH, NWMA, mild RVE, severe LAE, mild to mod SUJEY, mild to mod MV regurg, moderate Aortic stenosis, JOSS 1.4 cm2, Mild to mod TR. Review of Systems - Constitutional Constitutional: Present: fatigue, weakness. Absent: chills, fever(s) - EENMT Eyes: Absent: change in vision Balance: Absent: vertigo Mouth/Throat: Absent: sore throat - Cardiovascular Cardiovascular: Present: dyspnea on exertion. Absent: chest pain, palpitations , syncope, heart murmur Rhythm: Absent: abnormal rhythm Vascular: Present: pedal edema - Respiratory Respiratory: Present: cough, dyspnea - Gastrointestinal Gastrointestinal: Absent: diarrhea, nausea, vomiting - Genitourinary Genitourinary: Present: dysuria - Neurological Neurological: Absent: dizziness - Endocrine Endocrine: Absent: palpitations PFSH Patient Stated Medical History Cerebrovascular Accident Yes: 2 Cataracts Yes Cardiac Arrhythmia Yes: A FIB Congestive Heart Failure Yes Hypertension Yes Chronic Obstructive Pulmonary Yes Disease (COPD) Other Hematologic ON WARFARIN Other Musculoskeletal Yes: SHOULDER Cellulitis Yes Medical History Updates: COPD-chronic O2/CPAP. CHF. Hypertension. Atrial fibrillation with chronic anticoagulation with warfarin. Osteoarthritis. Urethral stricture. History of prostate cancer - treated with radiation. History of colon cancer-with surgical excision. History of tobacco addiction. History of TIA Surgical History: Cataracts, bowel resection for colon cancer, hernia repair, surgery for small bowel obstruction-Dr. Pedersen Family History: F - age 75 - lung cancer M - age 86 -DM - Social History Smoking status: Former smoker (quit 1 month ago. Smoked for 60 years) Packs per day: 1 (states quit after last hospitalization in [place] October 2017) Packs-years: 83 Substance use type: does not use Alcohol intake frequency: 0-2 drinks per day (drinks one beer daily) Household members: none (? home support. Has 1 daughter-lives in [place]. States " 4 other kids-we haven't talked for years.") Current occupational status: retired Current residence: Apartment/Private Home Medications Home Medications Medication Instructions Recorded Confirmed Type Warfarin Sodium 5 mg PO DAILY #0 01/31/13 11/15/17 History Albuterol Sulfate [Proair Hfa] 1 puff INH Q4H PRN #0 06/09/15 11/15/17 History Acetaminophen [Tylenol] 1,000 mg PO Q5H PRN 11/15/17 11/15/17 History Ascorbate Calcium [Vitamin C] 500 mg PO DAILY 11/15/17 11/15/17 History Bumetanide Tab [Bumex 1 mg Tab] 1 mg PO BID 11/15/17 11/15/17 History CephALEXin [Keflex 250 mg] 250 mg PO TID 11/15/17 11/15/17 History Cyanocobalamin (Vitamin B-12) 1,000 mcg PO DAILY 11/15/17 11/15/17 History [Vitamin B-12] Glucosamine 500 mg PO DAILY 11/15/17 11/15/17 History Levofloxacin [Levaquin] 500 mg PO DAILY 11/15/17 11/15/17 History Loratadine 10 mg PO DAILY 11/15/17 11/15/17 History Multivit-Min/FA/Lycopen/Lutein 1 each PO DAILY 11/15/17 11/15/17 History [Centrum Silver Tablet] Pantoprazole Tab [Protonix Tab] 40 mg PO BID 11/15/17 11/15/17 History Tamsulosin [Flomax] 0.4 mg PO HS 11/15/17 11/15/17 History Tramadol [Ultram] 50 mg PO Q8H PRN 11/15/17 11/15/17 History Allergies Allergy/AdvReac Type Severity Reaction Status Date / Time cefadroxil Allergy Unknown Verified 11/16/17 09:49 cocoa butter Allergy Unknown RASH Verified 11/16/17 09:49 glycerin Allergy Unknown RASH Verified 11/16/17 09:49 mineral oil Allergy Unknown RASH Verified 11/16/17 09:49 petrolatum,white Allergy Unknown RASH Verified 11/16/17 09:49 phenylephrine Allergy Unknown Verified 11/16/17 09:49 witch cindy Allergy Unknown RASH Verified 11/16/17 09:49 Cefadroxil Hydrate Allergy Unknown SWELLING Uncoded 11/16/17 09:49 Mercury Salts Allergy Unknown RASH Uncoded 11/16/17 09:49 phenylephrine HCl Allergy Unknown RASH Uncoded 11/16/17 09:49 Shark Liver Oil Allergy Unknown RASH Uncoded 11/16/17 09:49 Skin Respiratory Factor Allergy Unknown RASH Uncoded 11/16/17 09:49 Exam Vital signs: Temperature 97.4 F 11/21/17 11:38 Pulse Rate 86 11/21/17 11:38 Respiratory Rate 14 11/21/17 11:38 Blood Pressure 104/60 11/21/17 11:38 Pulse Oximetry 96 11/21/17 11:38 - Constitutional mild distress, well nourished, cooperative - Routine HEENT Exam Head: Present: normocephalic ENT: Present: mucous membranes moist - Routine Neck Exam Absent: JVD, carotid bruit - Routine Chest/Breast/Axilla Exam Chest wall: Absent: tenderness - Routine Respiratory Exam Present: dyspnea, crackles, diminished air movement. Absent: CTA bilaterally - Routine Cardiovascular Exam Present: RRR, S1, S2, no murmur - Routine Abdominal Exam Present: soft - Routine Extremities Exam Present: edema (RLE) - Routine Skin Exam Present: intact, dry, warm - Routine Neurological Exam Present: alert, oriented X3 - Routine Psychiatric Exam Present: normal affect, normal thought process Results 11/22/17 04:16 11/22/17 04:16 Coagulation 11/20/17 11/21/17 Range/Units 14:27 05:43 APTT 60.7 H 59.6 H (24-36) SEC CBC 11/21/17 Range/Units 05:43 WBC 4.6 (4.5-11.0) T/MM3 RBC 2.87 L (4.50-5.90) M/MM3 Hgb 7.5 L (13.5-17.5) GM/DL Hct 24.8 L (41-53) % Plt Count 263 (130-400) T/MM3 Neut # (Auto) 2.5 (1.8-7.7) T/MM3 Lymph # (Auto) 0.9 L (1-4.8) T/MM3 Grady # (Auto) 0.8 (0-0.8) T/MM3 Eos # (Auto) 0.4 (0-0.5) T/MM3 Baso # (Auto) 0.0 (0-0.2) T/MM3 Comprehensive Metabolic Panel 11/21/17 Range/Units 05:43 Sodium 139 (136-146) MEQ/L Potassium 3.7 (3.6-5) MEQ/L Chloride 100 (98-107) MEQ/L Carbon Dioxide 33 H (22-30) MEQ/L BUN 21.0 H (9-20) MG/DL Creatinine 1.8 H D (0.8-1.5) mg/dL Glucose 126 H (75-110) MG/DL Calcium 8.4 (8.4-10.2) MG/DL Intake and Output 11/20/17 11/21/17 11/21/17 22:59 06:59 14:59 Intake Total 400.467 / 400.467 750 / 750 652.917 / 652.917 Output Total 2275 / 2275 800 / 800 1450 / 1450 Balance -1874.533 / -1874.533 -50 / -50 -797.083 / -797.083 Intake: IV 164.467 / 164.467 750 / 750 232.917 / 232.917 Heparin Drip 20,000 unit In 500 164.467 / 164.467 500 / 500 232.917 / 232.917 ml @ 43 mls/hr IV .[id number] KEVYN Rx#:[id number] Vancomycin 1,250 mg In NS 250ml 250 / 250 250 ml @ 200 mls/hr IV Q18H KEVYN Rx#:[id number] Oral 236 / 236 420 / 420 Output: Urine Amount (Catheter) 2275 / 2275 800 / 800 1450 / 1450 Other: Urine Appearance Clear Clear Clear Urine Color Yellow Pale Yellow Yellow Urine Odor Normal Stool Color Brown Stool Consistency Dry and Hard Formed Size of Bowel Movement Small # Bowel Movements 1 Weight 246 lb 11.156 oz Patient Weight 11/22/17 06:59 Weight 246 lb 11.156 oz - Imaging and Cardiology Imaging & Cardiology Narrative: Date of Exam: 11/21/17 Type of Exam(s): US echo doppler complete DATE OF PROCEDURE 11/21/2017 PROCEDURE PERFORMED Transthoracic echocardiography, M-mode assessment, full color Doppler assessment. FINDINGS 1. LEFT VENTRICLE: Left ventricle appears normal in size. Normal left ventricle wall thickness noted. Normal left ventricular systolic function. Estimated LVEF is 60%-65%. No significant regional wall motion abnormalities noted. Grade 2 diastolic dysfunction noted. 2. RIGHT VENTRICLE: Right ventricle appears normal in size. Normal right ventricular wall thickness noted. Normal right ventricle systolic function noted. 3. RIGHT ATRIUM: Right atrium is mildly enlarged. 4. LEFT ATRIUM: Left atrium is moderately enlarged. 5. MITRAL VALVE: There is moderate mitral annular calcification noted. No significant mitral stenosis noted. Mild mitral regurgitation noted. 6. AORTIC VALVE: Aortic valve appears trileaflet. There is moderate leaflet calcification noted. Reduced systolic excursion of the aortic leaflets noted. On Doppler assessment [id number] aortic stenosis noted. Transaortic velocity is 2.5 constituting a peak gradient of 25 mmHg and mean gradient of 13 mmHg. Calculated aortic valve about 1.8 mm2. Due to limited windows aortic stenosis severity by Doppler could be underestimated on today's study. No significant aortic regurgitation noted. 7. TRICUSPID VALVE: Appears structurally normal. There is mild tricuspid regurgitation noted. 8. PULMONIC VALVE: Pulmonic valve poorly visualized on today's study. 9. IVC appears normal in size. Normal respirophasic variations noted. 10. PULMONARY ARTERY: Estimated pulmonary artery systolic pressure 35-40 mmHg. CONCLUSION 1. Normal left ventricular systolic function. Estimated LVEF 60%-65%. 2. Normal RV systolic function. 3. Trivial mitral regurgitation. 4. Qref-su-oaiamclf aortic stenosis noted. 5. Estimated pulmonary artery systolic pressure 35-40 mmHg. 11/22/17 15:13 Assessment and Plan - Assessment and Plan (1) Pulmonary embolus Current visit: Yes Status: Acute while on warfarin with supratherapeutic INR - IVC filter placed today, tolerated well. - Change Heparin to Eliquis 10mg BID for 1 week then 5mg BID (2) Acute on chronic respiratory failure with hypoxia and hypercapnia Current visit: Yes Status: Acute (3) Diastolic CHF Current visit: Yes Status: Chronic EF 60-65% on today's echo does not appear in acute heart failure, continue current Bumex 1mg BID (4) Moderate aortic stenosis Current visit: Yes Status: Chronic Will likely need WENDY/ RHC as an outpatient after recovers from this illness to further assess degree of stenosis (5) Atrial fibrillation Current visit: Yes Status: Chronic Paroxysmal, on chronic anticoagulation with warfarin (6) Essential (primary) hypertension Current visit: Yes Status: Chronic well controlled. - Assessment and Plan Pulmonary embolus Current visit: Yes Status: Acute - while on warfarin with supratherapeutic INR - IVC filter placed today, tolerated well. - Change Heparin to Eliquis 10mg BID for 1 week then 5mg BID Acute on chronic respiratory failure with hypoxia and hypercapnia Current visit: Yes Status: Acute - managed by medicine Diastolic CHF Current visit: Yes Status: Chronic - EF 60-65% on today's echo - does not appear in acute heart failure, continue current Bumex 1mg BID Moderate aortic stenosis Current visit: Yes Status: Chronic - Will likely need WENDY/ RHC as an outpatient after recovers from this illness to further assess degree of stenosis Atrial fibrillation Current visit: Yes Status: Chronic - Paroxysmal, on chronic anticoagulation with warfarin Essential (primary) hypertension Current visit: Yes Status: Chronic - well controlled. Thank you for allowing us to participate in the care of this patient, we will follow along with you. Hospital Course Summary Disclaimer: The visit summary below is not to be considered part of the above Progress Note. Hospital Course: 11/15/17 Admit, inpatient. Expect stay to exceed 2 overnights given severity of his respiratory failure requiring BiPAP and further workup given his new findings of pulmonary nodules. Start heparin drip for PE/DVT, suspect patient may have warfarin resistance. Pharmacy to manage. Pt was DC'd from [facility] on apixaban but states he didn't take it due to cost. BiPAP/Vapotherm PRN. DuoNeb's 4 times a day. Budesonide BID. (On documentation from [facility], Advair and Spiriva are listed as outpatient pulmonary meds) Continue home Bumex 1mg BID for CHF. Daily weights and I&O's. Consult Dr. Dhaliwal and Dr Davis/Miguelito regarding pulmonary nodules. Consult Dr. Pedersen re: placement of angela filter. Vancomycin for tx of cellulitis. Pharmacy to manage. Heparin for VTE treatment/prophylaxis. Avoid SCDs given his significant extremity cellulitis. Check TSH, CEA, PSA and repeat BMP and CBC in am given his h/o colon and prostate cancer and to follow electrolytes, renal function and blood counts. Pantoprazole for GERD and GI prophylaxis. DNR. Daughter Shayna (lives in [place]) is patient's DPOA-H. PCP-Otto Hardy 11/16/17 CEA elevated, PSA nl. Dr Mercer consulted and recommended CT abd/pelvis which showed no evidence for mets. Recommends OP PET scan. Currently on 5L O2 per nasal canula. Requires BiPAP at night and prn. Hgb dropped from 9.2 to 7.6 this am. Repeat hgb this afternoon was 8.0. Repeat in am. Pt continues on vancomycin (Day2) for cellulitis. Tmax 100.2 this am at 0746. Cont Heparin for VTE treatment/prophylaxis. Once INR normalizes, Dr. Pedersen will consider placement of Angela filter. 11/17/17 Vancomycin day #3 for cellulitis. White count has been normal throughout his stay. No further fevers. Hemoglobin lower again today. 9.2--7.6--8.0--7.6. Follow closely. Patient had B12/folate and iron studies performed during recent hospitalization in [place]. Likely has chronic blood loss secondary to anticoagulation. Weight is up 2.5kg since admission. CXR suggestive of pulmonary edema. Give additional 1mg Bumex IV. Creatinine has progressively worsened. 0.3--1.6--1.7. Will see if this improves with diuresis. Levsin added for bladder spasm. Vancomycin level being checked this evening-may require dose adjustment with slight increased creatinine. 11/18/17 Vancomycin day #4 for cellulitis. White count has been normal throughout his stay. No further fevers. Add Cipro for gram-negative coverage-patient reports he is tolerated this well previously. Hgb improved to 8.0. INR down to 2.8; poss Burnet placement when INR is subtherapeutic. Continue heparin gtt as INR drifts down. Diuresed yesterday with Bumex IV x1. Weight is down 3 kg and creatinine improved to 1.6. Continue oral bumex. Mg stable at 1.7. 11/19/17 Vancomycin day #5, Cipro day #2 for cellulitis. Hgb 8.0-->7.4. Continue to monitor. INR 2.18 today Kidney function continues to improve 1.7-->1.6-->1.5. Suspect improvement related to increased diuresis. Zaroxolyn 5 mg po given this morning, will continue Bumex 1 mg by mouth twice a day Currently on Vapotherm with O2 flow rate 37 L/min 11/20/17 Vancomycin day #6, Cipro day #3 for cellulitis. White count has been normal throughout his stay. No further fevers. Hgb 8.0-->7.4-->7.6. Continue to monitor. Magnesium low - IV replacement given and started on 400mg BID po. INR 1.65 today- poss Burnet placement tomorrow by Dr. Pedersen. Continues on heparin gtt. Dr. Pedersen indicated he would put in the orders for NPO and holding the Heparin. Currently on Vapotherm with O2 flow rate 25 L/min, down from 37. Diamox given x 1 for hypercapnia. 11/21/17 Vancomycin day #7, Cipro day #4 for cellulitis. White count normal. Hgb 8.0-->7.4-->7.6-->7.5. Given his SOA and CHF, will transfuse 1U PRBC's. Lasix x1 following transfusion INR 1.41 today- Burnet filter placement planned today by Dr. Pedersen. Continues on heparin gtt. (Holding before procedure.) Creatinine up 1.5-->1.8. Currently on Bumex 1 mg by mouth twice a day. Currently on Vapotherm with O2 flow rate 25 L/min. FiO2 40% Echo and consult Dr. Crenshaw re: CHF/SOA. Diamox given x 1 for hypercapnia. Patient continues with Siddiqui. Continue for diuresis and accurate I&O. Levsin for bladder spasms.
[2017-11-21] MEDS ORDERED: IOHEXOL 350mg/ml 200ml BOTTLE ONE (12:15)
--- NOTE | 2017-11-21 13:29 | General Surgery Procedure Note ---
Date of Procedure: 11/21/17 Surgeon: Nuvia Anesthesia: Local ASA Score: 4 Postoperative Diagnosis: DVT and PE Procedure: IVC filter placement and venacavogram
[2017-11-21] MEDS ORDERED: BELLADONNA-OPIUM 16.2 MG/60 MG SUPPOSITORY PR PRN (16:25)
--- NOTE | 2017-11-21 16:51 | Echocardiogram ---
DATE OF PROCEDURE 11/21/2017 PROCEDURE PERFORMED Transthoracic echocardiography, M-mode assessment, full color Doppler assessment. FINDINGS 1. LEFT VENTRICLE: Left ventricle appears normal in size. Normal left ventricle wall thickness noted. Normal left ventricular systolic function. Estimated LVEF is 60%-65%. No significant regional wall motion abnormalities noted. Grade 2 diastolic dysfunction noted. 2. RIGHT VENTRICLE: Right ventricle appears normal in size. Normal right ventricular wall thickness noted. Normal right ventricle systolic function noted. 3. RIGHT ATRIUM: Right atrium is mildly enlarged. 4. LEFT ATRIUM: Left atrium is moderately enlarged. 5. MITRAL VALVE: There is moderate mitral annular calcification noted. No significant mitral stenosis noted. Mild mitral regurgitation noted. 6. AORTIC VALVE: Aortic valve appears trileaflet. There is moderate leaflet calcification noted. Reduced systolic excursion of the aortic leaflets noted. On Doppler assessment [id number] aortic stenosis noted. Transaortic velocity is 2.5 constituting a peak gradient of 25 mmHg and mean gradient of 13 mmHg. Calculated aortic valve about 1.8 mm2. Due to limited windows aortic stenosis severity by Doppler could be underestimated on today's study. No significant aortic regurgitation noted. 7. TRICUSPID VALVE: Appears structurally normal. There is mild tricuspid regurgitation noted. 8. PULMONIC VALVE: Pulmonic valve poorly visualized on today's study. 9. IVC appears normal in size. Normal respirophasic variations noted. 10. PULMONARY ARTERY: Estimated pulmonary artery systolic pressure 35-40 mmHg. CONCLUSION 1. Normal left ventricular systolic function. Estimated LVEF 60%-65%. 2. Normal RV systolic function. 3. Trivial mitral regurgitation. 4. [id number]-ev-fpetqmcp aortic stenosis noted. 5. Estimated pulmonary artery systolic pressure 35-40 mmHg. MTDD
[2017-11-21] MEDS: FLEET PHOSPHO - SODA ENEMA 133ml PR PRN ×2 (17:23→20:58)
--- NOTE | 2017-11-21 18:15 | Pharmacy Consult-Antibiotics ---
Pharmacy Consult-Vancomycin - Laboratory Information WBC 4.6 T/MM3 (4.5-11.0) 11/21/17 05:43 BUN 21.0 MG/DL (9-20) H 11/21/17 05:43 Creatinine 1.8 mg/dL (0.8-1.5) H D 11/21/17 05:43 Vancomycin Trough 22.26 ug/mL (15-20) H* 11/21/17 16:24 - Consult Information VANCOMYCIN CONSULT: Vancomycin Trough = 22.26 mcg/ml. Today's SCr = 1.8 mg/dl. Will change Vancomycin 1250 mg IV q24hrs. Will continue to monitor and make adjustments accordingly. Thank you.
[2017-11-21] MEDS ORDERED: HEPARIN DRIP 20,000 UNIT/500 ML BAG IV SCH (19:30)
[2017-11-21] MEDS: APIXABAN 5 MG TABLET PO SCH (19:40)
[2017-11-21] MEDS: SENNA + DOCUSATE TABLET PO PRN (19:52)
[2017-11-21] MEDS: ACETAMINOPHEN 500 MG TABLET PO PRN (19:52)
[2017-11-21] MEDS ORDERED: Oxycodone/Apap 10/325 1 TAB PO PRN (20:52)
[2017-11-21] MEDS ORDERED: FLEET PHOSPHO - SODA ENEMA 133ml PR PRN (20:53)
[2017-11-21] MEDS: TAMSULOSIN 0.4 MG CAPSULE PO SCH (20:58)
[2017-11-21] MEDS ORDERED: FALL RISK - PHARMACY CONSULT MC ONE (21:23)
[2017-11-21] MEDS: Oxycodone *IR* 5 MG TABLET PO PRN (21:52)
[2017-11-22] MEDS: BUDESONIDE INH.SOLN 0.5mg/2ml NEB AEROSOL SCH ×2 (07:01→19:12)
[2017-11-22] MEDS: ALBUTEROL/IPRATROPIUM 2.5mg-0.5mg/3ml NEB AEROSOL SCH ×4 (07:02→19:12)
--- NOTE | 2017-11-22 08:25 | XRay Report ---
Indication: f/u Procedure: XR chest 2V: Encounter: Subsequent Comparison: 11/17/2017, 11/16/2017 Technique: AP and lateral views of the chest were obtained. Findings: Lungs and airways: Normal lung volumes. Patchy airspace consolidation within the right greater than left lower lung zones. Normal pulmonary vasculature. Pleura: Suggestion of trace pleural effusions on the lateral radiograph. No pneumothorax. Heart and mediastinum: The cardiomediastinal silhouette and great vessels appear unchanged. Osseous structures and soft tissues: No acute osseous abnormality is seen. Degenerative arthrosis of the shoulders. Likely old right rib fractures. Impression: Patchy airspace consolidation within the right greater than left lower lung zones with suggestion of trace pleural effusions. .
[2017-11-22] MEDS: Oxycodone *IR* 5 MG TABLET PO PRN ×2 (08:43→17:19)
[2017-11-22] MEDS: MULTI-VIT + MINERAL (Opti-gen) TABLET PO SCH (09:01)
[2017-11-22] MEDS: CIPROFLOXACIN 500 MG TABLET PO SCH ×2 (09:01→20:59)
[2017-11-22] MEDS: CYANOCOBALAMIN (B-12) 500mcg TABLET PO SCH (09:01)
[2017-11-22] MEDS: LORATADINE 10 MG TABLET PO SCH (09:01)
[2017-11-22] MEDS: APIXABAN 5 MG TABLET PO SCH ×2 (09:02→20:57)
[2017-11-22] MEDS: SENNA + DOCUSATE TABLET PO SCH (09:02)
[2017-11-22] MEDS: ASCORBIC ACID 500 MG TABLET PO SCH (09:02)
[2017-11-22] MEDS: MAGNESIUM OXIDE 400 MG TABLET PO SCH ×2 (09:03→20:59)
[2017-11-22] MEDS: BUMETANIDE 1 MG TABLET PO SCH ×2 (09:03→14:51)
[2017-11-22] MEDS: PANTOPRAZOLE 40 MG TABLET PO SCH ×2 (09:03→20:58)
--- NOTE | 2017-11-22 09:19 | Pharmacy Consult-Antibiotics ---
Pharmacy Consult-Vancomycin - Laboratory Information WBC 5.2 T/MM3 (4.5-11.0) 11/22/17 04:16 BUN 25.0 MG/DL (9-20) H 11/22/17 04:16 Creatinine 2.2 mg/dL (0.8-1.5) H D 11/22/17 04:16 Vancomycin Trough 22.26 ug/mL (15-20) H* 11/21/17 16:24 - Consult Information vancomycin Consult: Day 8 The renal function has decreased. With a high trough drawn yesterday (11/21), I changed the Vancomycin 1,000 mg iv every 24 hours. Thanks, Lucas Cabrera, Pharmacist.
[2017-11-22] MEDS: NICOTINE 14 MG PATCH TD SCH (09:29)
[2017-11-22] MEDS: NICOTINE PATCH REMOVAL TD SCH (09:30)
--- NOTE | 2017-11-22 09:54 | Operative Note ---
DATE OF OPERATION 11/21/2017 SURGEON Sadiq Pedersen MD PREOPERATIVE DIAGNOSES 1. Right-sided pulmonary emboli despite Coumadin anticoagulation. 2. Right lower extremity DVT. POSTOPERATIVE DIAGNOSES 1. Right-sided pulmonary emboli despite Coumadin anticoagulation. 2. Right lower extremity DVT. PROCEDURES 1. Selective catheter placement from the right internal jugular to the inferior vena cava with sonographic and fluoroscopic guidance. 2. Inferior vena cavogram. 3. Placement of inferior vena cava filter. ANESTHESIA 1% lidocaine ASA CLASS 4 INDICATIONS The patient is an 82-year-old male who unfortunately had developed a right- sided pulmonary emboli despite having a supratherapeutic INR. He had a known right lower extremity DVT and was on Coumadin. Given that Coumadin anticoagulation was not effective in preventing a PE, it was felt that an inferior vena cava filter should be placed. FINDINGS The right internal jugular vein was widely patent on sonography. Fluoroscopy revealed good position of the TRAPEASE inferior vena cava filter with the top of the filter at the upper portion of the L2 vertebra. Inferior vena cavogram did reveal the position of the renal veins with the right renal vein been lower than the left and at the L1-L2 interspace. There was no clot burden noted in the inferior vena cava. DESCRIPTION OF PROCEDURE After informed consent was obtained, the patient was taken to the medical lab director at [facility] and was placed in the supine position. The patient's right neck was prepped and draped in the usual sterile fashion. A sterile sono probe was brought onto the field and was used to examine the right neck. The internal jugular vein was identified. Local was used to anesthetize the skin and subcutaneous tissue. A small skin incision was made with an 11 blade scalpel. A Cook needle was then advanced into the jugular vein with the sonogram. A guidewire was then threaded through the Cook needle. Fluoroscopy was used to advance the guidewire down to the level of the inferior vena cava. The TRAPEASE dilator and sheath were then threaded over the guidewire and down to the inferior vena cava under fluoroscopic guidance. The dilator and guidewire were removed. An inferior vena cavogram was then obtained using 20 mL of Omnipaque with a single injection. Both renal veins were identified with the right renal vein been lower. This position was marked so that the top of the filter could be deployed just beneath this location. The TRAPEASE filter was then loaded into the sheath and the sheath was slowly withdrawn while holding the filter in a steady position. The filter was successfully deployed and this was confirmed with fluoroscopy. The sheath and push danyel were then removed and pressure was held at the neck to obtain hemostasis. The skin incision was closed with buried interrupted 4-0 Monocryl stitches. A sterile bandage was applied as a dressing. The patient tolerated the procedure well. FAHAD
--- NOTE | 2017-11-22 12:30 | Progress Note ---
<Vida Dumont L - Last Filed: 11/22/17 15:39> Oncology Subjective Alert/oriented. Persists with intermittent/frequent shortness of air, frequent cough. Leg pain, relieved with as needed medications. No other complaints. General: No fever, no night sweats Eyes: No redness, no pain, + diplopia ENT: No mouth sores, no trouble swallowing Cardiac: No chest pain no palpitations Pulmonary: + cough, + shortness of breath, no wheezing Abdomen: No pain, no nausea vomiting : guerra Musculoskeletal: No arthritis, no myalgias Neurological: No headaches, no focal weakness Skin: wound right lower leg/denies worsening Psychiatric: No anxiety, no depression Exam Vital signs: Temperature 98.0 F 11/22/17 11:00 Pulse Rate 93 11/22/17 11:00 Respiratory Rate 16 11/22/17 11:00 Blood Pressure 115/63 11/22/17 11:00 Pulse Oximetry 89 L 11/22/17 11:00 Narrative: Generic Name Dose Route Start Last Admin Trade Name Ironq PRN Reason Stop Dose Admin Acetaminophen 1,000 mg 11/15/17 19:01 11/21/17 19:52 Tylenol PO 1,000 mg Q5H PRN Administration Pain Albuterol/Ipratropium 3 ml 11/15/17 19:00 11/22/17 14:55 Duoneb AEROSOL 3 ml RTQID KEVYN Administration Albuterol/Ipratropium 3 ml 11/19/17 17:57 11/19/17 17:59 Duoneb AEROSOL 3 ml RTQID PRN Administration Apixaban 10 mg 11/21/17 19:30 11/22/17 09:02 Eliquis PO 11/28/17 09:01 10 mg BID KEVYN Administration Apixaban 5 mg 11/28/17 21:00 Eliquis PO BID KEVYN Ascorbic Acid 500 mg 11/16/17 09:00 11/22/17 09:02 Vitamin C PO 500 mg DAILY KEVYN Administration Belladonna Alkaloids/Opium 1 supp 11/21/17 16:25 11/21/17 19:52 B & O Supp 16.2/60 SD 1 supp Q8HR PRN Administration Bladder spasms Bisacodyl 10 mg 11/20/17 06:19 Dulcolax RECTALLY DAILY PRN Constipation Budesonide 0.5 mg 11/16/17 07:00 11/22/17 07:01 Pulmicort Inhalation AEROSOL 0.5 mg RTBID KEVYN Administration Bumetanide 1 mg 11/18/17 09:00 11/22/17 14:51 Bumex 1 Mg Tab PO 1 mg [id number] KEVYN Administration Ciprofloxacin 500 mg 11/18/17 21:00 11/22/17 09:01 Cipro 500 Mg PO 500 mg Q12HR KEVYN Administration Cyanocobalamin 1,000 mcg 11/16/17 09:00 11/22/17 09:01 Vit. B-12 PO 1,000 mcg DAILY KEVYN Administration Hyoscyamine 0.125 mg 11/17/17 16:47 11/21/17 19:14 Levsin PO 0.125 mg Q4H PRN Administration Bladder spasms Vancomycin HCl 1,000 mg/ 250 mls @ 250 mls/hr 11/22/17 08:30 11/22/17 10:38 Sodium Chloride IV Infused Q24H KEVYN Infusion Loratadine 10 mg 11/16/17 09:00 11/22/17 09:01 Claritin PO 10 mg DAILY KEVYN Administration Lorazepam 0.5 - 1 mg 11/19/17 13:08 11/21/17 18:54 Ativan Inj IVP 0.5 mg Q6H PRN Administration Magnesium Hydroxide 30 ml 11/20/17 06:19 11/20/17 07:20 Mom PO 30 ml DAILY PRN Administration Constipation Magnesium Oxide 400 mg 11/20/17 21:00 11/22/17 09:03 Magox PO 400 mg BID KEVYN Administration Multivitamins/Minerals 1 tab 11/16/17 09:00 11/22/17 09:01 Vision PO 1 tab DAILY KEVYN Administration Nicotine 14 mg 11/16/17 10:45 11/22/17 09:29 Nicoderm TD 14 mg DAILY KEVYN Administration Nicotine 1 removal 11/17/17 09:00 11/22/17 09:30 Nicotine Patch Removal TD 1 removal DAILY KEVYN Administration Oxycodone HCl 5 - 10 mg 11/21/17 21:49 11/22/17 08:43 Roxicodone *Ir* PO 10 mg Q6H PRN Administration Pain Pantoprazole Sodium 40 mg 11/15/17 21:00 11/22/17 09:03 Protonix Tab PO 40 mg BID KEVYN Administration Prochlorperazine Edisylate 10 mg 11/19/17 12:08 11/19/17 12:11 Compazine Iv IVP 10 mg Q6H PRN Administration Nausea &/or vomiting Senna/Docusate Sodium 1 tab 11/20/17 09:00 11/22/17 09:02 Senna Plus Tablet PO 1 tab DAILY KEVYN Administration Senna/Docusate Sodium 1 tab 11/20/17 18:48 11/21/17 19:52 Senna Plus Tablet PO 1 tab BID PRN Administration Constipation Sodium Chloride 10 - 80 ml 11/15/17 13:35 11/21/17 09:29 Iv Flush IVF 20 ml PRN PRN Administration Flushing Sodium Chloride 500 ml 11/21/17 10:03 11/22/17 09:06 Normal Saline IV 500 ml PRN PRN Administration Sodium Phosphate 1 enema 11/21/17 14:45 11/21/17 20:58 Fleet Enema SD 1 enema DAILY PRN Administration Constipation Sodium Phosphate 1 enema 11/21/17 20:53 Fleet Enema SD PRN PRN Constipation Tamsulosin HCl 0.4 mg 11/15/17 21:00 11/21/17 20:58 Flomax PO 0.4 mg HS KEVYN Administration Tramadol HCl 50 mg 11/15/17 19:01 11/21/17 18:20 Ultram PO 50 mg Q8H PRN Administration Pain Discontinued Medications Generic Name Dose Route Start Last Admin Trade Name Freq PRN Reason Stop Dose Admin Acetazolamide 500 mg 11/20/17 10:11 11/20/17 10:56 Diamox 250 Mg PO 11/20/17 10:12 500 mg O ONE Administration Acetazolamide 500 mg 11/21/17 10:16 11/21/17 11:33 Diamox 500 Mg Sequels PO 11/21/17 10:17 500 mg O ONE Administration Albuterol/Ipratropium 3 ml 11/15/17 13:35 11/16/17 07:45 Duoneb IH 11/15/17 13:36 3 ml ONCE ONE Administration Bumetanide 1 mg 11/15/17 21:00 11/17/17 09:43 Bumex 1 Mg Tab PO 1 mg BID KEVYN Administration Bumetanide 1 mg 11/17/17 17:00 11/17/17 18:14 Bumex 1 Mg Tab PO 1 mg [id number] KEVYN Administration Bumetanide 1 mg 11/17/17 11:42 11/17/17 12:24 Bumex 1 Mg/4 Ml Inj. IVP 11/17/17 11:43 1 mg O ONE Administration Furosemide 20 mg 11/21/17 10:03 11/21/17 18:07 Lasix 20 Mg/2 Ml IVP 11/21/17 10:04 20 mg O ONE Administration Heparin Sodium (Porcine) 1 each 11/15/17 18:29 Pharmacy Consult - Heparin 11/15/17 18:30 ONE TIME ONE Heparin Sodium (Porcine) 20,000 unit in 500 mls @ 43 mls/hr 11/15/17 20:00 14:53 Heparin Drip IV Not Given .[id number] KEVYN Vancomycin HCl 2,000 mg/ 500 mls @ 250 mls/hr 11/15/17 20:40 11/15/17 23:55 Sodium Chloride IV 11/15/17 20:41 Infused O ONE Infusion Vancomycin HCl 1,250 mg/ 250 mls @ 200 mls/hr 11/16/17 10:00 11/21/17 01:24 Sodium Chloride IV Infused Q18H KEVYN Infusion Magnesium Sulfate/Dextrose 1 gm in 100 mls @ 100 mls/hr 11/16/17 09:30 13:47 Mag Sulf 1gm Premix IV 11/16/17 11:29 Infused Q1H KEVYN Infusion Magnesium Sulfate/Dextrose 1 gm in 100 mls @ 100 mls/hr 11/20/17 09:01 10:54 Mag Sulf 1gm Premix IV 11/20/17 10:00 Infused O ONE Infusion Heparin Sodium (Porcine) 20,000 unit in 500 mls @ 43 mls/hr 11/21/17 19:30 Heparin Drip IV .[id number] KEVYN Vancomycin HCl 1,250 mg/ 250 mls @ 200 mls/hr 11/21/17 23:00 11/21/17 22:50 Sodium Chloride IV Not Given Q24H KEVYN Lidocaine HCl 20 ml 11/15/17 14:44 11/15/17 14:51 Urojet MM 11/15/17 14:45 20 ml O ONE Administration Metolazone 5 mg 11/19/17 09:00 11/19/17 08:44 Zaroxolyn PO 11/19/17 09:01 5 mg DAILY KEVYN Administration Metolazone 5 mg 11/20/17 09:00 11/22/17 09:01 Zaroxolyn PO 5 mg DAILY KEVYN Administration Morphine Sulfate 2 mg 11/15/17 13:44 11/15/17 13:59 Morphine Sulf 2 Mg Inj IVP 11/15/17 13:45 2 mg O ONE Administration Nicotine 14 mg 11/15/17 15:58 11/15/17 16:05 Nicoderm TD 11/15/17 15:59 14 mg O ONE Administration Pharmacy Consult 1 each 11/19/17 17:11 11/19/17 17:37 Pharmacy Consult - Fall Risk 11/19/17 17:12 1 each ONE TIME ONE Administration Pharmacy Consult each 11/21/17 21:23 Pharmacy Consult - Fall Risk 11/21/17 21:24 ONE TIME ONE Senna/Docusate Sodium 1 tab 11/19/17 13:08 11/19/17 13:10 Senna Plus Tablet PO 11/19/17 13:09 1 tab O ONE Administration Vancomycin HCl 1 each 11/15/17 19:32 11/15/17 22:45 Pharmacy Consult - Vancomycin 11/15/17 19:33 1 each O ONE Administration - Constitutional mild distress - Routine HEENT Exam Head: Present: normocephalic Eye: Present: EOMI ENT: Present: mucous membranes dry - Routine Neck Exam Present: supple. Absent: lymphadenopathy - Routine Respiratory Exam Present: decreased breath sounds. Absent: wheezes, crackles - Routine Cardiovascular Exam Present: RRR, no murmur - Routine Abdominal Exam Present: soft, normoactive bowel sounds, non tender. Absent: mass - Routine Extremities Exam Present: edema, full ROM Comments: Bilateral lower extremity edema, right greater than left. - Routine Back/Spine/Pelvis Exam Back/Spine: Absent: vertebral tenderness - Routine Skin Exam Present: dry Comments: Erythema right foot and lower extremity to mid calf. Appears slightly improved. No discrete open wounds noted. - Routine Neurological Exam Present: alert, oriented X3, moving all extremities - Routine Psychiatric Exam Present: normal affect Oncology Results - Labs CBC & Chem 7: 11/22/17 04:16 11/22/17 04:16 Labs: Short CBC 11/21/17 11/22/17 Range/Units 18:30 04:16 WBC 5.2 (4.5-11.0) T/MM3 Hgb 9.5 L D 8.8 L (13.5-17.5) GM/DL Hct 29.0 L D (41-53) % Plt Count 272 (130-400) T/MM3 [facility] 11/22/17 04:16 Sodium 139 Potassium 4.0 Chloride 97 L Carbon Dioxide 34 H BUN 25.0 H Creatinine 2.2 H D Glucose 136 H Calcium 8.6 - Impressions Date of Exam: 11/22/17 Ordering Provider: Bob Zurita MD Type of Exam(s): XR chest 2V Reason for Exam(s): f/u Indication: f/u Procedure: XR chest 2V: Encounter: Subsequent Comparison: 11/17/2017, 11/16/2017 Technique: AP and lateral views of the chest were obtained. Findings: Lungs and airways: Normal lung volumes. Patchy airspace consolidation within the right greater than left lower lung zones. Normal pulmonary vasculature. Pleura: Suggestion of trace pleural effusions on the lateral radiograph. No pneumothorax. Heart and mediastinum: The cardiomediastinal silhouette and great vessels appear unchanged. Osseous structures and soft tissues: No acute osseous abnormality is seen. Degenerative arthrosis of the shoulders. Likely old right rib fractures. Impression: Patchy airspace consolidation within the right greater than left lower lung zones with suggestion of trace pleural effusions. . Assessment and Plan Assessment and Plan: 1. New findings pulmonary nodules on CT angiogram in patient with history of prostate cancer and colon cancer. 2. Pulmonary embolism recurrent and chronic. Heparin drip D/C'd; see number 5 below. 3. History of colon cancer; CEA elevated at 8.0. CT scan of the abdomen and pelvis done; negative for metastatic disease. Recommmend PET scan as outpatient. 4. Distant history of prostate cancer with normal PSA 5. A-fib, on chronic anticoag w/ warfarin. Heparin drip discontinued. IVC/ inferior vena cava filter placed by Dr. Schulte. Changed to Eliquis 10 mg twice daily 1 week, then 5 mg twice daily.Followed by cardiology 6. Multiple comorbidities of acute respiratory failure w/ hypoxia, COPD/chronic O2 use, CHF, cellulitis right lower extremity, valvular disease, chronic kidney disease, urethral stricture, chronic lymphedema. Plan Continue supportive care. Cardiac/pulmonary status limits availability of evaluation. Anticipate PET scan to be done outpatient. - Time Spent With Patient Total time spent is greater than 50% in coordination of care (as documented) at patient's floor/unit and/or counseling patient: 25 - 35 minutes <Hector Davis - Last Filed: 11/22/17 17:28> Exam Vital signs: Temperature 96.0 F L 11/22/17 15:25 Pulse Rate 88 11/22/17 15:25 Respiratory Rate 20 11/22/17 15:25 Blood Pressure 101/62 11/22/17 15:25 Pulse Oximetry 96 11/22/17 15:25 Oncology Results - Labs CBC & Chem 7: 11/22/17 04:16 11/22/17 04:16 Labs: Short CBC 11/21/17 11/22/17 Range/Units 18:30 04:16 WBC 5.2 (4.5-11.0) T/MM3 Hgb 9.5 L D 8.8 L (13.5-17.5) GM/DL Hct 29.0 L D (41-53) % Plt Count 272 (130-400) T/MM3 BMP 11/22/17 04:16 Sodium 139 Potassium 4.0 Chloride 97 L Carbon Dioxide 34 H BUN 25.0 H Creatinine 2.2 H D Glucose 136 H Calcium 8.6 Assessment and Plan Assessment and Plan: Patient examined, chart reviewed, I participated in the development of the plan of care of this patient. He is much more alert than earlier in this week. IVC filter has been placed for DVT. On anticoagulation with eliquis. He is much more pleasant and communicative this evening. He was having significant pain and urethra and this is been relieved with oxycodone. Right leg is wrapped. Creatinine is higher today at 2.2. Selected Entries 11/16/17 07:46 Temperature 100.2 F Laboratory Tests 11/15/17 11/15/17 11/15/17 13:33 13:33 13:33 WBC 5.9 Hgb 9.2 L Plt Count 255 INR 5.39 H* APTT Creatinine NT-Pro-B Natriuret Pep 1640 H Plasma Lactate Carcinoembryonic Ag Prostate Specific Ag TSH 11/15/17 11/15/17 11/15/17 13:33 14:13 18:55 WBC Hgb Plt Count INR APTT 45.9 H Creatinine NT-Pro-B Natriuret Pep Plasma Lactate 1.1 0.8 Carcinoembryonic Ag Prostate Specific Ag TSH 11/16/17 11/16/17 11/16/17 04:28 04:28 04:28 WBC 5.5 Hgb 7.6 L D Plt Count 241 INR APTT Creatinine NT-Pro-B Natriuret Pep Plasma Lactate Carcinoembryonic Ag 8.05 H Prostate Specific Ag 0.2 TSH 0.90 11/16/17 11/16/17 11/18/17 04:28 04:28 04:12 WBC Hgb 8.0 L Plt Count INR 6.54 H* APTT 73.5 H Creatinine NT-Pro-B Natriuret Pep Plasma Lactate Carcinoembryonic Ag Prostate Specific Ag TSH 11/19/17 11/19/17 11/20/17 03:50 03:50 06:35 WBC 4.9 Hgb 7.4 L Plt Count 255 INR 2.18 H APTT 51.8 H Creatinine 1.5 NT-Pro-B Natriuret Pep Plasma Lactate Carcinoembryonic Ag Prostate Specific Ag TSH 11/21/17 11/22/17 11/22/17 05:43 04:16 04:16 WBC 5.2 Hgb 8.8 L Plt Count 272 INR APTT Creatinine 1.8 H D 2.2 H D NT-Pro-B Natriuret Pep Plasma Lactate Carcinoembryonic Ag Prostate Specific Ag TSH We'll continue observation await PET scan for follow-up of lung nodules - Time Spent With Patient Total time spent is greater than 50% in coordination of care (as documented) at patient's floor/unit and/or counseling patient:
[2017-11-22] MEDS: FLEET PHOSPHO - SODA ENEMA 133ml PR PRN ×2 (14:51→15:41)
--- NOTE | 2017-11-22 15:53 | Progress Note ---
- Date 11/22/17 Subjective: Patient is seen sitting on the side of the bed eating lunch. He states that the oxycodone took away the pain in his urethra. "It's like night and day. I have no pain." He is feeling better for this reason. He isn't sure if his breathing is improving much. He is eating well. He is tired of nurses always "bothering" him. He didn't work with PT/OT this am and has refused to have the MARIA INES wraps put back on. He denies CP, dizziness, n/v. He still feels he is constipated, but declines dulcolax po or supp. Objective Vital signs: Temperature 96.0 F L 11/22/17 15:25 Pulse Rate 88 11/22/17 15:25 Respiratory Rate 20 11/22/17 15:25 Blood Pressure 101/62 11/22/17 15:25 Pulse Oximetry 96 11/22/17 15:25 Rhythm: Atrial Fibrillation with Normal Ventricular Rate Height/Weight/BMI: Height 1.88 m Weight 110.5 kg - Constitutional Present: no acute distress, well nourished, well developed - Routine HEENT Exam Head: Present: normocephalic, atraumatic - Routine Respiratory Exam Present: decreased breath sounds (b/l bases, crackles RLL. Upper lung grant sound clear but distant). Absent: wheezes - Routine Cardiovascular Exam Present: no murmur, irregular rhythm - Routine Abdominal Exam Present: soft, non distended, non tender - Routine Extremities Exam Present: edema (RLE edema and redness are less than previous, although, following removal of MARIA INES wrap yesterday, the swelling was most improved. ), normal capillary refill - Routine Skin Exam Present: dry, warm - Routine Neurological Exam Present: alert, oriented X3 - Routine Lymphatic Exam Lymphatic: Absent: adenopathy - Routine Psychiatric Exam Present: normal affect, cooperative Results - Labs CBC & Chem 7: 11/22/17 04:16 11/22/17 04:16 Microbiology Results: Microbiology 11/15/17 14:13 Peripheral/Iv Start Blood Culture - Final No Growth After 5 Days 11/15/17 14:19 Peripheral/Iv Start Blood Culture - Final No Growth After 5 Days 11/15/17 15:08 Urine, Voided (Cc/notcc) Urine Culture - Final No Growth After 2 Days Assessment and Plan Assessment and Plan: Assessment Acute respiratory failure with hypoxia Pulmonary embolism-right middle and lower lobes (despite chronic anticoagulation with warfarin and current INR of 5.3) IVC filter placement 11/[address] Pedersen Nonocclusive DVT-right superficial femoral vein-DVT originally identified VCSF several weeks ago Left upper lobe pulmonary nodules-suspicious for metastatic disease Cellulitis right lower extremity COPD-chronic O2 - w/ possible exacerbation Chronic respiratory failure with hypoxia-home Trilogy CHF-rule out acute exacerbation Hypertension Valvular heart disease-moderate (based on echo 08/15) CKD (ave creatinine 1.5) Paroxysmal atrial fibrillation with chronic anticoagulation with warfarin Supratherapeutic INR- present on admission Osteoarthritis History of prostate cancer - treated with radiation History of colon cancer-with surgical excision History of tobacco addiction-quit one month ago History of TIA GERD Urethral stricture Chronic lymphedema AAA, 3 cm Normocytic anemia-POA (Labs done 10/26/17: Fe 40, TIBC 323, Sat 12%, transferrin 217, ferritin 30, B12 1452, folate 13.1). Anemia likely chronic ds and chronic blood loss secondary to anticoagulation Transfusion 1U PRBC 11/21. Obesity with BMI 32.6 Plan Vancomycin day #8, Cipro day #5 for cellulitis. White count normal. IVC filter placement 11/[address] Pedersen. On Eliquis 10bid x 7 d then 5mg bid. Creatinine up 1.5-->1.8-->2.2. Could be up in response to contrast used with placement of filter. BMP in am. Follow hgb - 1U PRBC's 11/21. Hgb 8.8 today. Start bladder training. Hope to DC cath later today or tomorrow. Dr Crenshaw rec OP WENDY and RHC. Continue Bumex. No sign of acute CHF. Pt c/o constipation. Additional bowel motivation ordered. Discussed with pt he needs to work with PT/OT if he wants to return home. He agreed to work with them this afternoon. Yudith Will discontinue Vancomycin - can continue Cipro for cellulitis coverage. DVT Prophylaxis: Eliquis Resuscitation Status: Do Not Resuscitate - Time spent with patient Time with patient PN: 25 minutes - Physician Narrative Physician: Bob Zurita MD Narrative: Date: 11/22/17 Time: 1550 Have independently interviewed and examined pt. Chart reviewed. Case discussed with nursing and my PA. Care plan developed with my supervision; agree with above. Doing about the same. Breathing with little change-does like Vapotherm. Very reluctant to work with therapy, but ultimately did consent. Did okay with therapy. Eating well. Stools still feel slow-passing some stool, but still feels constipated. Ab bloating at time. Had bladder spasms-B&O did little, like how Percocet helped. Legs about the same. Lungs: decreased, little air movement. No crackles or wheeze. CV: irregular AB : soft, nt BS decreased. EXT: trace BLE, right leg wrapped. Plan: Will stop Zaroxolyn as creatinine increasing and weight has decreased. CXR showing gradual improvement. Will have RT try to wean off Vapotherm. Encouraged pt on being more active as will help his breathing and bowel. Will stop Vancomycin - continue Cipro. Bladder retraining-possible d/c guerra in am. Hospital Course Summary Disclaimer: The visit summary below is not to be considered part of the above Progress Note. Hospital Course: 11/15/17 Admit, inpatient. Expect stay to exceed 2 overnights given severity of his respiratory failure requiring BiPAP and further workup given his new findings of pulmonary nodules. Start heparin drip for PE/DVT, suspect patient may have warfarin resistance. Pharmacy to manage. Pt was DC'd from [facility] on apixaban but states he didn't take it due to cost. BiPAP/Vapotherm PRN. DuoNeb's 4 times a day. Budesonide BID. (On documentation from [facility], Advair and Spiriva are listed as outpatient pulmonary meds) Continue home Bumex 1mg BID for CHF. Daily weights and I&O's. Consult Dr. Dhaliwal and Dr Davis/Miguelito regarding pulmonary nodules. Consult Dr. Pedersen re: placement of angela filter. Vancomycin for tx of cellulitis. Pharmacy to manage. Heparin for VTE treatment/prophylaxis. Avoid SCDs given his significant extremity cellulitis. Check TSH, CEA, PSA and repeat BMP and CBC in am given his h/o colon and prostate cancer and to follow electrolytes, renal function and blood counts. Pantoprazole for GERD and GI prophylaxis. DNR. Daughter Shayna (lives in [place]) is patient's DPOA-H. PCP-Otto Hardy 11/16/17 CEA elevated, PSA nl. Dr Mercer consulted and recommended CT abd/pelvis which showed no evidence for mets. Recommends OP PET scan. Currently on 5L O2 per nasal canula. Requires BiPAP at night and prn. Hgb dropped from 9.2 to 7.6 this am. Repeat hgb this afternoon was 8.0. Repeat in am. Pt continues on vancomycin (Day2) for cellulitis. Tmax 100.2 this am at 0746. Cont Heparin for VTE treatment/prophylaxis. Once INR normalizes, Dr. Pedersen will consider placement of Angela filter. 11/17/17 Vancomycin day #3 for cellulitis. White count has been normal throughout his stay. No further fevers. Hemoglobin lower again today. 9.2--7.6--8.0--7.6. Follow closely. Patient had B12/folate and iron studies performed during recent hospitalization in [place]. Likely has chronic blood loss secondary to anticoagulation. Weight is up 2.5kg since admission. CXR suggestive of pulmonary edema. Give additional 1mg Bumex IV. Creatinine has progressively worsened. 0.3--1.6--1.7. Will see if this improves with diuresis. Levsin added for bladder spasm. Vancomycin level being checked this evening-may require dose adjustment with slight increased creatinine. 11/18/17 Vancomycin day #4 for cellulitis. White count has been normal throughout his stay. No further fevers. Add Cipro for gram-negative coverage-patient reports he is tolerated this well previously. Hgb improved to 8.0. INR down to 2.8; poss [place] placement when INR is subtherapeutic. Continue heparin gtt as INR drifts down. Diuresed yesterday with Bumex IV x1. Weight is down 3 kg and creatinine improved to 1.6. Continue oral bumex. Mg stable at 1.7. 11/19/17 Vancomycin day #5, Cipro day #2 for cellulitis. Hgb 8.0-->7.4. Continue to monitor. INR 2.18 today Kidney function continues to improve 1.7-->1.6-->1.5. Suspect improvement related to increased diuresis. Zaroxolyn 5 mg po given this morning, will continue Bumex 1 mg by mouth twice a day Currently on Vapotherm with O2 flow rate 37 L/min 11/20/17 Vancomycin day #6, Cipro day #3 for cellulitis. White count has been normal throughout his stay. No further fevers. Hgb 8.0-->7.4-->7.6. Continue to monitor. Magnesium low - IV replacement given and started on 400mg BID po. INR 1.65 today- poss IVC placement tomorrow by Dr. Pedersen. Continues on heparin gtt. Dr. Pedersen indicated he would put in the orders for NPO and holding the Heparin. Currently on Vapotherm with O2 flow rate 25 L/min, down from 37. Diamox given x 1 for hypercapnia. 11/21/17 Vancomycin day #7, Cipro day #4 for cellulitis. White count normal. Hgb 8.0-->7.4-->7.6-->7.5. Given his SOA and CHF, will transfuse 1U PRBC's. Lasix x1 following transfusion INR 1.41 today- IVC filter placement planned today by Dr. Pedersen. Continues on heparin gtt. (Holding before procedure.) Creatinine up 1.5-->1.8. Currently on Bumex 1 mg by mouth twice a day. Currently on Vapotherm with O2 flow rate 25 L/min. FiO2 40% Echo and consult Dr. Crenshaw re: CHF/SOA. Diamox given x 1 for hypercapnia. Patient continues with Guerra. Continue for diuresis and accurate I&O. Levsin for bladder spasms. 11/22/17 Vancomycin day #8 - can discontinue. Continue Cipro day #5 for cellulitis. White count normal. IVC filter placement 11/[address] Pedersen. On Eliquis 10mg bid x 7 d then 5mg bid. Creatinine up 1.5-->1.8-->2.2. Could be up in response to contrast used with placement of filter. BMP in am. Follow hgb - 1U PRBC's 11/21. Hgb 8.8 today. Start bladder training. Hope to DC cath later today or tomorrow. Dr Flower rec OP WENDY and RHC. Continue Bumex. No sign of acute CHF. Discussed with pt he needs to work with PT/OT if he wants to return home. He agreed to work with them this afternoon.
[2017-11-22] MEDS ORDERED: Bisacodyl EC TAB 5 MG TABLET PO PRN (16:12)
[2017-11-22] MEDS: POLYETHYL GLYCOL 3350 17gm PACKET PO SCH (16:17)
[2017-11-22] MEDS: SENNOSIDES 8.6 MG TABLET PO SCH (20:58)
[2017-11-22] MEDS: TAMSULOSIN 0.4 MG CAPSULE PO SCH (20:59)
--- NOTE | 2017-11-22 21:12 | Progress Note ---
DATE OF VISIT 11/22/2017 REASON FOR VISIT Followup after inferior vena cava filter placement. SUBJECTIVE Elpidio has no complaints today. He feels like his legs are much less swollen today. He has no complaints at his neck. OBJECTIVE NECK: The bandage in the right neck is clean, dry and intact with no evidence of bleeding and no evidence of a neck hematoma. ASSESSMENT 1. Right-sided pulmonary emboli despite Coumadin anticoagulation. 2. Right lower extremity DVT. 3. History of colon cancer with possible lung metastases. 4. Successful inferior vena cava filter placement yesterday. There is no evidence of complications at the neck. PLAN Continue other care per the medical, pulmonary, and oncology teams. I will sign off of Papito's case. Please call if further general surgery intervention is needed. FAHAD
[2017-11-23] MEDS: Oxycodone *IR* 5 MG TABLET PO PRN (02:38)
[2017-11-23] MEDS: BUDESONIDE INH.SOLN 0.5mg/2ml NEB AEROSOL SCH ×2 (06:52→19:35)
[2017-11-23] MEDS: ALBUTEROL/IPRATROPIUM 2.5mg-0.5mg/3ml NEB AEROSOL SCH ×4 (06:52→19:35)
[2017-11-23] MEDS: NICOTINE 14 MG PATCH TD SCH (09:57)
[2017-11-23] MEDS: POLYETHYL GLYCOL 3350 17gm PACKET PO SCH (09:57)
[2017-11-23] MEDS: MULTI-VIT + MINERAL (Opti-gen) TABLET PO SCH (09:58)
[2017-11-23] MEDS: BUMETANIDE 1 MG TABLET PO SCH (09:58)
[2017-11-23] MEDS: APIXABAN 5 MG TABLET PO SCH ×2 (09:58→21:27)
[2017-11-23] MEDS: PANTOPRAZOLE 40 MG TABLET PO SCH ×2 (09:58→21:27)
[2017-11-23] MEDS: LORATADINE 10 MG TABLET PO SCH (09:58)
[2017-11-23] MEDS: NICOTINE PATCH REMOVAL TD SCH (09:59)
[2017-11-23] MEDS: ASCORBIC ACID 500 MG TABLET PO SCH (09:59)
[2017-11-23] MEDS: CIPROFLOXACIN 500 MG TABLET PO SCH ×2 (09:59→21:29)
[2017-11-23] MEDS: SENNOSIDES 8.6 MG TABLET PO SCH ×2 (09:59→21:26)
[2017-11-23] MEDS: CYANOCOBALAMIN (B-12) 500mcg TABLET PO SCH (09:59)
[2017-11-23] MEDS: MAGNESIUM OXIDE 400 MG TABLET PO SCH (09:59)
--- NOTE | 2017-11-23 10:07 | Progress Note ---
- Date 11/23/17 Subjective: Elpidio is seen today in follow up. He has been using Bi-pap overnight however is weaning down with nasal canula. Currently on 6 L at 98%. He denies having pain or nausea. Ate 100% of breakfast today. Objective Vital signs: Temperature 97.8 F 11/23/17 09:13 Pulse Rate 81 11/23/17 09:13 Respiratory Rate 20 11/23/17 09:13 Blood Pressure 114/67 11/23/17 09:13 Pulse Oximetry 98 11/23/17 09:43 Height/Weight/BMI: Height 1.88 m Weight 110.5 kg - Constitutional Present: no acute distress, well nourished, well developed - Routine HEENT Exam Eye: Present: EOMI ENT: Present: mucous membranes moist, dentition normal - Routine Respiratory Exam Present: CTA bilaterally. Absent: wheezes - Routine Cardiovascular Exam Present: RRR, S1, S2. Absent: murmur - Routine Abdominal Exam Present: soft, normoactive bowel sounds, non distended. Absent: tenderness - Routine Extremities Exam Present: full ROM - Routine Back/Spine/Pelvis Exam Back/Spine: Present: full ROM - Routine Skin Exam Present: intact, dry, warm - Routine Neurological Exam Present: alert, oriented X3, CN II-XII intact - Routine Lymphatic Exam Lymphatic: Absent: adenopathy - Routine Psychiatric Exam Present: normal affect, cooperative Results - Labs CBC & Chem 7: 11/23/17 04:22 11/23/17 04:22 Microbiology Results: Microbiology 11/15/17 14:13 Peripheral/Iv Start Blood Culture - Final No Growth After 5 Days 11/15/17 14:19 Peripheral/Iv Start Blood Culture - Final No Growth After 5 Days 11/15/17 15:08 Urine, Voided (Cc/notcc) Urine Culture - Final No Growth After 2 Days Assessment and Plan Assessment and Plan: Assessment Acute respiratory failure with hypoxia Pulmonary embolism-right middle and lower lobes (despite chronic anticoagulation with warfarin and current INR of 5.3) IVC filter placement 11/[address] Pedersen Nonocclusive DVT-right superficial femoral vein-DVT originally identified [facility] several weeks ago Left upper lobe pulmonary nodules-suspicious for metastatic disease Cellulitis right lower extremity COPD-chronic O2 - w/ possible exacerbation Chronic respiratory failure with hypoxia-home Trilogy CHF-rule out acute exacerbation Hypertension Valvular heart disease-moderate (based on echo 08/15) CKD (ave creatinine 1.5) Paroxysmal atrial fibrillation with chronic anticoagulation with warfarin Supratherapeutic INR- present on admission Osteoarthritis History of prostate cancer - treated with radiation History of colon cancer-with surgical excision History of tobacco addiction-quit one month ago History of TIA GERD Urethral stricture Chronic lymphedema AAA, 3 cm Normocytic anemia-POA (Labs done 10/26/17: Fe 40, TIBC 323, Sat 12%, transferrin 217, ferritin 30, B12 1452, folate 13.1). Anemia likely chronic ds and chronic blood loss secondary to anticoagulation Transfusion 1U PRBC 11/21. Obesity with BMI 32.6 Plan Continues on day 6 of clindamycin for tx of cellulitis. Unfortunately Ct continues to trend up 1.5-->1.8-->2.2 -->2.4 today Continue to work on weaning down oxygen Hgb stable at 8.7. Attempted to do bladder retraining however pt c/o ureteral pain IVC filter placement 11/[address] Pedersen. On Eliquis 10 bid. Decrease to 5mg bid on 11/28. PT/OT if he wants to return home- Discussed with MATT Zurita Will d/c Siddiqui and hold Bumex. DVT Prophylaxis: Eliquis Resuscitation Status: Do Not Resuscitate - Time spent with patient Time with patient PN: 25 minutes - Physician Narrative Physician: Bob Zurita MD Narrative: Date: 11/23/17 Time: 3 Have independently interviewed and examined pt. Chart reviewed. Case discussed with CM & my [employer]PECTING SUPERVISOR. Care plan developed with my supervision; agree with above. Doing okay today. Moving more-working with therapy. Strength increasing, but still knows he is weak. Bowel output increasing. Would like to have Siddiqui out. Breathing improving-wean down to baseline home O2 levels. Leg redness with slow decrease. Lungs: decreased, no distress. CV: irregular AB: soft nt MSE: awake alert Plan: Will stop Bumex due to increasing creatinine. Can remove Siddiqui. Encourage activities to help strength. Overall, making improvement. Possible able to go home in next few days if keeps improving. Hospital Course Summary Disclaimer: The visit summary below is not to be considered part of the above Progress Note. Hospital Course: 11/15/17 Admit, inpatient. Expect stay to exceed 2 overnights given severity of his respiratory failure requiring BiPAP and further workup given his new findings of pulmonary nodules. Start heparin drip for PE/DVT, suspect patient may have warfarin resistance. Pharmacy to manage. Pt was DC'd from [facility] on apixaban but states he didn't take it due to cost. BiPAP/Vapotherm PRN. DuoNeb's 4 times a day. Budesonide BID. (On documentation from [facility], Advair and Spiriva are listed as outpatient pulmonary meds) Continue home Bumex 1mg BID for CHF. Daily weights and I&O's. Consult Dr. Dhaliwal and Dr Davis/Miguelito regarding pulmonary nodules. Consult Dr. Pedersen re: placement of angela filter. Vancomycin for tx of cellulitis. Pharmacy to manage. Heparin for VTE treatment/prophylaxis. Avoid SCDs given his significant extremity cellulitis. Check TSH, CEA, PSA and repeat BMP and CBC in am given his h/o colon and prostate cancer and to follow electrolytes, renal function and blood counts. Pantoprazole for GERD and GI prophylaxis. DNR. Daughter Shayna (lives in [place]) is patient's DPOA-H. PCP-Otto Hardy 11/16/17 CEA elevated, PSA nl. Dr Mercer consulted and recommended CT abd/pelvis which showed no evidence for mets. Recommends OP PET scan. Currently on 5L O2 per nasal canula. Requires BiPAP at night and prn. Hgb dropped from 9.2 to 7.6 this am. Repeat hgb this afternoon was 8.0. Repeat in am. Pt continues on vancomycin (Day2) for cellulitis. Tmax 100.2 this am at 0746. Cont Heparin for VTE treatment/prophylaxis. Once INR normalizes, Dr. Pedersen will consider placement of [place] filter. 11/17/17 Vancomycin day #3 for cellulitis. White count has been normal throughout his stay. No further fevers. Hemoglobin lower again today. 9.2--7.6--8.0--7.6. Follow closely. Patient had B12/folate and iron studies performed during recent hospitalization in [place]. Likely has chronic blood loss secondary to anticoagulation. Weight is up 2.5kg since admission. CXR suggestive of pulmonary edema. Give additional 1mg Bumex IV. Creatinine has progressively worsened. 0.3--1.6--1.7. Will see if this improves with diuresis. Levsin added for bladder spasm. Vancomycin level being checked this evening-may require dose adjustment with slight increased creatinine. 11/18/17 Vancomycin day #4 for cellulitis. White count has been normal throughout his stay. No further fevers. Add Cipro for gram-negative coverage-patient reports he is tolerated this well previously. Hgb improved to 8.0. INR down to 2.8; poss Angela placement when INR is subtherapeutic. Continue heparin gtt as INR drifts down. Diuresed yesterday with Bumex IV x1. Weight is down 3 kg and creatinine improved to 1.6. Continue oral bumex. Mg stable at 1.7. 11/19/17 Vancomycin day #5, Cipro day #2 for cellulitis. Hgb 8.0-->7.4. Continue to monitor. INR 2.18 today Kidney function continues to improve 1.7-->1.6-->1.5. Suspect improvement related to increased diuresis. Zaroxolyn 5 mg po given this morning, will continue Bumex 1 mg by mouth twice a day Currently on Vapotherm with O2 flow rate 37 L/min 11/20/17 Vancomycin day #6, Cipro day #3 for cellulitis. White count has been normal throughout his stay. No further fevers. Hgb 8.0-->7.4-->7.6. Continue to monitor. Magnesium low - IV replacement given and started on 400mg BID po. INR 1.65 today- poss IVC placement tomorrow by Dr. Pedersen. Continues on heparin gtt. Dr. Pedersen indicated he would put in the orders for NPO and holding the Heparin. Currently on Vapotherm with O2 flow rate 25 L/min, down from 37. Diamox given x 1 for hypercapnia. 11/21/17 Vancomycin day #7, Cipro day #4 for cellulitis. White count normal. Hgb 8.0-->7.4-->7.6-->7.5. Given his SOA and CHF, will transfuse 1U PRBC's. Lasix x1 following transfusion INR 1.41 today- IVC filter placement planned today by Dr. Pedersen. Continues on heparin gtt. (Holding before procedure.) Creatinine up 1.5-->1.8. Currently on Bumex 1 mg by mouth twice a day. Currently on Vapotherm with O2 flow rate 25 L/min. FiO2 40% Echo and consult Dr. Crenshaw re: CHF/SOA. Diamox given x 1 for hypercapnia. Patient continues with Siddiqui. Continue for diuresis and accurate I&O. Levsin for bladder spasms. 11/22/17 Vancomycin day #8 - can discontinue. Continue Cipro day #5 for cellulitis. White count normal. IVC filter placement 11/[address] Pedersen. On Eliquis 10mg bid x 7 d then 5mg bid. Creatinine up 1.5-->1.8-->2.2. Could be up in response to contrast used with placement of filter. BMP in am. Follow hgb - 1U PRBC's 11/21. Hgb 8.8 today. Start bladder training. Hope to DC cath later today or tomorrow. Dr Crenshaw rec OP WENDY and RHC. Continue Bumex. No sign of acute CHF. Discussed with pt he needs to work with PT/OT if he wants to return home. He agreed to work with them this afternoon. 11/23/17 Continues on day 6 of clindamycin for tx of cellulitis. Unfortunately Ct continues to trend up 1.5-->1.8-->2.2 -->2.4 today. Will hold Bumex. Continue to work on weaning down oxygen. Hgb stable at 8.7. Attempted to do bladder retraining however pt c/o ureteral pain - will discontinue Siddiqui. IVC filter placement 11/[address] Pedersen. On Eliquis 10 bid. Decrease to 5mg bid on 11/28. PT/OT if he wants to return home - Discussed with CM
--- NOTE | 2017-11-23 13:57 | Progress Note ---
<Vida Dumont L - Last Filed: 11/23/17 16:25> Oncology Subjective Alone in room. Sitting on bedside eating lunch. Had eaten 75%. Denies headache, diplopia persists. States cough/shortness of air improved. Feels legs improved. Anxious insists when dismissed from hospital, "I am going home, no matter what." General: No fever, no night sweats Eyes: No redness, no pain, + diplopia ENT: No mouth sores, no trouble swallowing Cardiac: No chest pain no palpitations Pulmonary: + cough, + shortness of breath, no wheezing .Subjectively feels breathing improved Abdomen: No pain, no nausea vomiting, + constipation, but better. Reports normal BM today. : No urgency, frequency, dysuria, or hematuria Musculoskeletal: No arthritis, no myalgias Neurological: No headaches, no focal weakness Skin: Swelling/edema rossy. lower legs/improved Psychiatric: No anxiety, no depression Exam Vital signs: Temperature 97.8 F 11/23/17 09:13 Pulse Rate 81 11/23/17 09:13 Respiratory Rate 16 11/23/17 10:31 Blood Pressure 114/67 11/23/17 09:13 Pulse Oximetry 96 11/23/17 12:15 Narrative: Generic Name Dose Route Start Last Admin Trade Name Freq PRN Reason Stop Dose Admin Acetaminophen 1,000 mg 11/15/17 19:01 11/21/17 19:52 Tylenol PO 1,000 mg Q5H PRN Administration Pain Albuterol/Ipratropium 3 ml 11/15/17 19:00 11/23/17 14:27 Duoneb AEROSOL 3 ml RTQID KEVYN Administration Albuterol/Ipratropium 3 ml 11/19/17 17:57 11/19/17 17:59 Duoneb AEROSOL 3 ml RTQID PRN Administration Apixaban 10 mg 11/21/17 19:30 11/23/17 09:58 Eliquis PO 11/28/17 09:01 10 mg BID KEVYN Administration Apixaban 5 mg 11/28/17 21:00 Eliquis PO BID KEVYN Ascorbic Acid 500 mg 11/16/17 09:00 11/23/17 09:59 Vitamin C PO 500 mg DAILY KEVYN Administration Belladonna Alkaloids/Opium 1 supp 11/21/17 16:25 11/21/17 19:52 B & O Supp 16.2/60 NJ 1 supp Q8HR PRN Administration Bladder spasms Bisacodyl 10 mg 11/20/17 06:19 Dulcolax RECTALLY DAILY PRN Constipation Bisacodyl 10 mg 11/22/17 16:12 11/22/17 16:18 Dulcolax PO 10 mg DAILY PRN Administration Constipation Budesonide 0.5 mg 11/16/17 07:00 11/23/17 06:52 Pulmicort Inhalation AEROSOL 0.5 mg RTBID KEVYN Administration Bumetanide 1 mg 11/18/17 09:00 11/23/17 09:58 Bumex 1 Mg Tab PO 1 mg [id number] KEVYN Administration Ciprofloxacin 500 mg 11/18/17 21:00 11/23/17 09:59 Cipro 500 Mg PO 500 mg Q12HR KEVYN Administration Cyanocobalamin 1,000 mcg 11/16/17 09:00 11/23/17 09:59 Vit. B-12 PO 1,000 mcg DAILY KEVYN Administration Hyoscyamine 0.125 mg 11/17/17 16:47 11/21/17 19:14 Levsin PO 0.125 mg Q4H PRN Administration Bladder spasms Loratadine 10 mg 11/16/17 09:00 11/23/17 09:58 Claritin PO 10 mg DAILY KEVYN Administration Lorazepam 0.5 - 1 mg 11/19/17 13:08 11/21/17 18:54 Ativan Inj IVP 0.5 mg Q6H PRN Administration Multivitamins/Minerals 1 tab 11/16/17 09:00 11/23/17 09:58 Vision PO 1 tab DAILY KEVYN Administration Nicotine 14 mg 11/16/17 10:45 11/23/17 09:57 Nicoderm TD 14 mg DAILY KEVYN Administration Nicotine 1 removal 11/17/17 09:00 11/23/17 09:59 Nicotine Patch Removal TD 1 removal DAILY KEVYN Administration Oxycodone HCl 5 - 10 mg 11/21/17 21:49 11/23/17 02:38 Roxicodone *Ir* PO 5 mg Q6H PRN Administration Pain Pantoprazole Sodium 40 mg 11/15/17 21:00 11/23/17 09:58 Protonix Tab PO 40 mg BID KEVYN Administration Polyethylene Glycol 17 gm 11/23/17 09:00 11/23/17 09:57 Miralax PO 17 gm DAILY KEVYN Administration Prochlorperazine Edisylate 10 mg 11/19/17 12:08 11/19/17 12:11 Compazine Iv IVP 10 mg Q6H PRN Administration Nausea &/or vomiting Senna 17.2 mg 11/22/17 21:00 11/23/17 09:59 Senna Lax PO 17.2 mg BID KEVYN Administration Senna/Docusate Sodium 1 tab 11/20/17 18:48 11/21/17 19:52 Senna Plus Tablet PO 1 tab BID PRN Administration Constipation Sodium Chloride 10 - 80 ml 11/15/17 13:35 11/21/17 09:29 Iv Flush IVF 20 ml PRN PRN Administration Flushing Sodium Chloride 500 ml 11/21/17 10:03 11/22/17 09:06 Normal Saline IV 500 ml PRN PRN Administration Sodium Phosphate 1 enema 11/21/17 20:53 11/23/17 13:00 Fleet Enema NJ 1 enema PRN PRN Administration Constipation Tamsulosin HCl 0.4 mg 11/15/17 21:00 11/22/17 20:59 Flomax PO 0.4 mg HS KEVYN Administration Tramadol HCl 50 mg 11/15/17 19:01 11/21/17 18:20 Ultram PO 50 mg Q8H PRN Administration Pain Discontinued Medications Generic Name Dose Route Start Last Admin Trade Name Freq PRN Reason Stop Dose Admin Acetazolamide 500 mg 11/20/17 10:11 11/20/17 10:56 Diamox 250 Mg PO 11/20/17 10:12 500 mg O ONE Administration Acetazolamide 500 mg 11/21/17 10:16 11/21/17 11:33 Diamox 500 Mg Sequels PO 11/21/17 10:17 500 mg O ONE Administration Albuterol/Ipratropium 3 ml 11/15/17 13:35 11/16/17 07:45 Duoneb IH 11/15/17 13:36 3 ml ONCE ONE Administration Bumetanide 1 mg 11/15/17 21:00 11/17/17 09:43 Bumex 1 Mg Tab PO 1 mg BID KEVYN Administration Bumetanide 1 mg 11/17/17 17:00 11/17/17 18:14 Bumex 1 Mg Tab PO 1 mg [id number] KEVYN Administration Bumetanide 1 mg 11/17/17 11:42 11/17/17 12:24 Bumex 1 Mg/4 Ml Inj. IVP 11/17/17 11:43 1 mg O ONE Administration Furosemide 20 mg 11/21/17 10:03 11/21/17 18:07 Lasix 20 Mg/2 Ml IVP 11/21/17 10:04 20 mg O ONE Administration Heparin Sodium (Porcine) 1 each 11/15/17 18:29 Pharmacy Consult - Heparin 11/15/17 18:30 ONE TIME ONE Heparin Sodium (Porcine) 20,000 unit in 500 mls @ 43 mls/hr 11/15/17 20:00 14:53 Heparin Drip IV Not Given .[id number] KEVYN Vancomycin HCl 2,000 mg/ 500 mls @ 250 mls/hr 11/15/17 20:40 11/15/17 23:55 Sodium Chloride IV 11/15/17 20:41 Infused O ONE Infusion Vancomycin HCl 1,250 mg/ 250 mls @ 200 mls/hr 11/16/17 10:00 11/21/17 01:24 Sodium Chloride IV Infused Q18H KEVYN Infusion Magnesium Sulfate/Dextrose 1 gm in 100 mls @ 100 mls/hr 11/16/17 09:30 13:47 Mag Sulf 1gm Premix IV 11/16/17 11:29 Infused Q1H KEVYN Infusion Magnesium Sulfate/Dextrose 1 gm in 100 mls @ 100 mls/hr 11/20/17 09:01 10:54 Mag Sulf 1gm Premix IV 11/20/17 10:00 Infused O ONE Infusion Heparin Sodium (Porcine) 20,000 unit in 500 mls @ 43 mls/hr 11/21/17 19:30 Heparin Drip IV .[id number] KEVYN Vancomycin HCl 1,250 mg/ 250 mls @ 200 mls/hr 11/21/17 23:00 11/21/17 22:50 Sodium Chloride IV Not Given Q24H KEVYN Vancomycin HCl 1,000 mg/ 250 mls @ 250 mls/hr 11/22/17 08:30 11/22/17 10:38 Sodium Chloride IV Infused Q24H KEVYN Infusion Lidocaine HCl 20 ml 11/15/17 14:44 11/15/17 14:51 Urojet MM 11/15/17 14:45 20 ml O ONE Administration Magnesium Hydroxide 30 ml 11/20/17 06:19 11/20/17 07:20 Mom PO 30 ml DAILY PRN Administration Constipation Magnesium Oxide 400 mg 11/20/17 21:00 11/23/17 09:59 Magox PO 400 mg BID KEVYN Administration Metolazone 5 mg 11/19/17 09:00 11/19/17 08:44 Zaroxolyn PO 11/19/17 09:01 5 mg DAILY KEVYN Administration Metolazone 5 mg 11/20/17 09:00 11/22/17 09:01 Zaroxolyn PO 5 mg DAILY KEVYN Administration Morphine Sulfate 2 mg 11/15/17 13:44 11/15/17 13:59 Morphine Sulf 2 Mg Inj IVP 11/15/17 13:45 2 mg O ONE Administration Nicotine 14 mg 11/15/17 15:58 11/15/17 16:05 Nicoderm TD 11/15/17 15:59 14 mg O ONE Administration Pharmacy Consult 1 each 11/19/17 17:11 11/19/17 17:37 Pharmacy Consult - Fall Risk 11/19/17 17:12 1 each ONE TIME ONE Administration Pharmacy Consult each 11/21/17 21:23 Pharmacy Consult - Fall Risk 11/21/17 21:24 ONE TIME ONE Senna/Docusate Sodium 1 tab 11/19/17 13:08 11/19/17 13:10 Senna Plus Tablet PO 11/19/17 13:09 1 tab O ONE Administration Senna/Docusate Sodium 1 tab 11/20/17 09:00 11/22/17 09:02 Senna Plus Tablet PO 1 tab DAILY KEVYN Administration Sodium Phosphate 1 enema 11/21/17 14:45 11/22/17 15:41 Fleet Enema NJ 1 enema DAILY PRN Administration Constipation Vancomycin HCl 1 each 11/15/17 19:32 11/15/17 22:45 Pharmacy Consult - Vancomycin 11/15/17 19:33 1 each O ONE Administration - Constitutional no acute distress, well developed, cooperative - Routine HEENT Exam Head: Present: normocephalic Eye: Present: EOMI ENT: Present: mucous membranes moist - Routine Neck Exam Present: supple. Absent: lymphadenopathy - Routine Chest/Breast/Axilla Exam Axillae: Absent: lymphadenopathy - Routine Respiratory Exam Present: decreased breath sounds. Absent: wheezes, crackles - Routine Cardiovascular Exam Present: RRR, no murmur - Routine Abdominal Exam Present: soft, non tender. Absent: mass - Routine Extremities Exam Present: edema, full ROM (Chronic bilateral lower extremity edema, right greater than left.) - Routine Skin Exam Present: intact, warm, wounds (No open wounds bilateral lower legs. Persistent erythema, but appears lessened.) - Routine Psychiatric Exam Present: normal affect, cooperative Oncology Results - Labs CBC & Chem 7: 11/23/17 04:22 11/23/17 04:22 Labs: Short CBC 11/23/17 Range/Units 04:22 WBC 5.7 (4.5-11.0) T/MM3 Hgb 8.7 L (13.5-17.5) GM/DL Hct 28.5 L (41-53) % Plt Count 305 (130-400) T/MM3 [facility] 11/23/17 04:22 Sodium 138 Potassium 4.0 Chloride 97 L Carbon Dioxide 31 H BUN 30.0 H Creatinine 2.4 H D Glucose 129 H Calcium 8.5 Assessment and Plan Assessment and Plan: 1. New findings pulmonary nodules on CT angiogram in patient with history of prostate cancer and colon cancer. 2. Pulmonary embolism recurrent and chronic. Heparin drip D/C'd; see number 5 below. 3. History of colon cancer; CEA elevated at 8.0. CT scan of the abdomen and pelvis done; negative for metastatic disease. Recommmend PET scan as outpatient. 4. Distant history of prostate cancer with normal PSA 5. A-fib, on chronic anticoag w/ warfarin. Heparin drip discontinued. IVC/ inferior vena cava filter placed by Dr. Schulte. Changed to Eliquis 10 mg twice daily 1 week, then 5 mg twice daily.Followed by cardiology 6. Multiple comorbidities of acute respiratory failure w/ hypoxia, COPD/chronic O2 use, CHF, cellulitis right lower extremity, valvular disease, chronic kidney disease, urethral stricture, chronic lymphedema. Note creatinine 2.4 today/GFR is 26. Plan Continue supportive care. Cardiac/pulmonary status limits availability of evaluation. Discussed with patient will follow as outpatient/anticipate PET scan to be done outpatient. Asks if could schedule those appointments now; informed will wait for discharge planning. - Time Spent With Patient Total time spent is greater than 50% in coordination of care (as documented) at patient's floor/unit and/or counseling patient: 25 - 35 minutes <Hector Davis - Last Filed: 11/23/17 17:55> Exam Vital signs: Temperature 97.8 F 11/23/17 09:13 Pulse Rate 91 11/23/17 17:00 Respiratory Rate 20 11/23/17 16:00 Blood Pressure 117/65 11/23/17 17:34 Pulse Oximetry 99 11/23/17 17:19 Oncology Results - Labs CBC & Chem 7: 11/23/17 04:22 11/23/17 04:22 Labs: Short CBC 11/23/17 Range/Units 04:22 WBC 5.7 (4.5-11.0) T/MM3 Hgb 8.7 L (13.5-17.5) GM/DL Hct 28.5 L (41-53) % Plt Count 305 (130-400) T/MM3 BMP 11/23/17 04:22 Sodium 138 Potassium 4.0 Chloride 97 L Carbon Dioxide 31 H BUN 30.0 H Creatinine 2.4 H D Glucose 129 H Calcium 8.5 Assessment and Plan Assessment and Plan: Patient examined, chart reviewed, I participated in the development of the plan of care of this patient with Jazz Dumont. Creatinine has increased. Laboratory Tests 11/22/17 11/23/17 11/23/17 04:16 04:22 04:22 WBC 5.7 Hgb 8.7 L Neut % (Auto) 61.4 Neut # (Auto) 3.5 Creatinine 2.2 H D 2.4 H D We'll continue supportive care agree with eliquis and IVC filter Await PET scan as outpatient - Time Spent With Patient Total time spent is greater than 50% in coordination of care (as documented) at patient's floor/unit and/or counseling patient:
--- NOTE | 2017-11-23 16:58 | Cardiology Progress Note ---
Subjective Principal diagnosis: DCHF, , AFib Interval history: Papito is seen in follow up for Diastolic HF, and AFib. He is in bed playing on his cell phone in no distress. He denies chest pain or pressure. Exam Vital signs: Temperature 97.8 F 11/23/17 09:13 Pulse Rate 81 11/23/17 09:13 Respiratory Rate 16 11/23/17 14:28 Blood Pressure 114/67 11/23/17 09:13 Pulse Oximetry 94 11/23/17 14:28 Inpatient Medications: Generic Name Dose Route Start Last Admin Trade Name Freq PRN Reason Stop Dose Admin Acetaminophen 1,000 mg 11/15/17 19:01 11/21/17 19:52 Tylenol PO 1,000 mg Q5H PRN Administration Pain Albuterol/Ipratropium 3 ml 11/15/17 19:00 11/23/17 14:27 Duoneb AEROSOL 3 ml RTQID KEVYN Administration Albuterol/Ipratropium 3 ml 11/19/17 17:57 11/19/17 17:59 Duoneb AEROSOL 3 ml RTQID PRN Administration Apixaban 10 mg 11/21/17 19:30 11/23/17 09:58 Eliquis PO 11/28/17 09:01 10 mg BID KEVYN Administration Apixaban 5 mg 11/28/17 21:00 Eliquis PO BID KEVYN Ascorbic Acid 500 mg 11/16/17 09:00 11/23/17 09:59 Vitamin C PO 500 mg DAILY KEVYN Administration Belladonna Alkaloids/Opium 1 supp 11/21/17 16:25 11/21/17 19:52 B & O Supp 16.2/60 GA 1 supp Q8HR PRN Administration Bladder spasms Bisacodyl 10 mg 11/20/17 06:19 Dulcolax RECTALLY DAILY PRN Constipation Bisacodyl 10 mg 11/22/17 16:12 11/22/17 16:18 Dulcolax PO 10 mg DAILY PRN Administration Constipation Budesonide 0.5 mg 11/16/17 07:00 11/23/17 06:52 Pulmicort Inhalation AEROSOL 0.5 mg RTBID KEVYN Administration Bumetanide 1 mg 11/18/17 09:00 11/23/17 09:58 Bumex 1 Mg Tab PO 1 mg [id number] KEVYN Administration Ciprofloxacin 500 mg 11/18/17 21:00 11/23/17 09:59 Cipro 500 Mg PO 500 mg Q12HR KEVYN Administration Cyanocobalamin 1,000 mcg 11/16/17 09:00 11/23/17 09:59 Vit. B-12 PO 1,000 mcg DAILY KEVYN Administration Hyoscyamine 0.125 mg 11/17/17 16:47 11/21/17 19:14 Levsin PO 0.125 mg Q4H PRN Administration Bladder spasms Loratadine 10 mg 11/16/17 09:00 11/23/17 09:58 Claritin PO 10 mg DAILY KEVYN Administration Lorazepam 0.5 - 1 mg 11/19/17 13:08 11/21/17 18:54 Ativan Inj IVP 0.5 mg Q6H PRN Administration Multivitamins/Minerals 1 tab 11/16/17 09:00 11/23/17 09:58 Vision PO 1 tab DAILY KEVYN Administration Nicotine 14 mg 11/16/17 10:45 11/23/17 09:57 Nicoderm TD 14 mg DAILY KEVYN Administration Nicotine 1 removal 11/17/17 09:00 11/23/17 09:59 Nicotine Patch Removal TD 1 removal DAILY KEVYN Administration Oxycodone HCl 5 - 10 mg 11/21/17 21:49 11/23/17 02:38 Roxicodone *Ir* PO 5 mg Q6H PRN Administration Pain Pantoprazole Sodium 40 mg 11/15/17 21:00 11/23/17 09:58 Protonix Tab PO 40 mg BID KEVYN Administration Polyethylene Glycol 17 gm 11/23/17 09:00 11/23/17 09:57 Miralax PO 17 gm DAILY KEVYN Administration Prochlorperazine Edisylate 10 mg 11/19/17 12:08 11/19/17 12:11 Compazine Iv IVP 10 mg Q6H PRN Administration Nausea &/or vomiting Senna 17.2 mg 11/22/17 21:00 11/23/17 09:59 Senna Lax PO 17.2 mg BID KEVYN Administration Senna/Docusate Sodium 1 tab 11/20/17 18:48 11/21/17 19:52 Senna Plus Tablet PO 1 tab BID PRN Administration Constipation Sodium Chloride 10 - 80 ml 11/15/17 13:35 11/21/17 09:29 Iv Flush IVF 20 ml PRN PRN Administration Flushing Sodium Chloride 500 ml 11/21/17 10:03 11/22/17 09:06 Normal Saline IV 500 ml PRN PRN Administration Sodium Phosphate 1 enema 11/21/17 20:53 11/23/17 13:00 Fleet Enema GA 1 enema PRN PRN Administration Constipation Tamsulosin HCl 0.4 mg 11/15/17 21:00 11/22/17 20:59 Flomax PO 0.4 mg HS KEVYN Administration Tramadol HCl 50 mg 11/15/17 19:01 11/21/17 18:20 Ultram PO 50 mg Q8H PRN Administration Pain Discontinued Medications Generic Name Dose Route Start Last Admin Trade Name Freq PRN Reason Stop Dose Admin Acetazolamide 500 mg 11/20/17 10:11 11/20/17 10:56 Diamox 250 Mg PO 11/20/17 10:12 500 mg O ONE Administration Acetazolamide 500 mg 11/21/17 10:16 11/21/17 11:33 Diamox 500 Mg Sequels PO 11/21/17 10:17 500 mg O ONE Administration Albuterol/Ipratropium 3 ml 11/15/17 13:35 11/16/17 07:45 Duoneb IH 11/15/17 13:36 3 ml ONCE ONE Administration Bumetanide 1 mg 11/15/17 21:00 11/17/17 09:43 Bumex 1 Mg Tab PO 1 mg BID KEVYN Administration Bumetanide 1 mg 11/17/17 17:00 11/17/17 18:14 Bumex 1 Mg Tab PO 1 mg [id number] KEVYN Administration Bumetanide 1 mg 11/17/17 11:42 11/17/17 12:24 Bumex 1 Mg/4 Ml Inj. IVP 11/17/17 11:43 1 mg O ONE Administration Furosemide 20 mg 11/21/17 10:03 11/21/17 18:07 Lasix 20 Mg/2 Ml IVP 11/21/17 10:04 20 mg O ONE Administration Heparin Sodium (Porcine) 1 each 11/15/17 18:29 Pharmacy Consult - Heparin 11/15/17 18:30 ONE TIME ONE Heparin Sodium (Porcine) 20,000 unit in 500 mls @ 43 mls/hr 11/15/17 20:00 14:53 Heparin Drip IV Not Given .[id number] KEVYN Vancomycin HCl 2,000 mg/ 500 mls @ 250 mls/hr 11/15/17 20:40 11/15/17 23:55 Sodium Chloride IV 11/15/17 20:41 Infused O ONE Infusion Vancomycin HCl 1,250 mg/ 250 mls @ 200 mls/hr 11/16/17 10:00 11/21/17 01:24 Sodium Chloride IV Infused Q18H KEVYN Infusion Magnesium Sulfate/Dextrose 1 gm in 100 mls @ 100 mls/hr 11/16/17 09:30 13:47 Mag Sulf 1gm Premix IV 11/16/17 11:29 Infused Q1H KEVYN Infusion Magnesium Sulfate/Dextrose 1 gm in 100 mls @ 100 mls/hr 11/20/17 09:01 10:54 Mag Sulf 1gm Premix IV 11/20/17 10:00 Infused O ONE Infusion Heparin Sodium (Porcine) 20,000 unit in 500 mls @ 43 mls/hr 11/21/17 19:30 Heparin Drip IV .[id number] KEVYN Vancomycin HCl 1,250 mg/ 250 mls @ 200 mls/hr 11/21/17 23:00 11/21/17 22:50 Sodium Chloride IV Not Given Q24H KEVYN Vancomycin HCl 1,000 mg/ 250 mls @ 250 mls/hr 11/22/17 08:30 11/22/17 10:38 Sodium Chloride IV Infused Q24H KEVYN Infusion Lidocaine HCl 20 ml 11/15/17 14:44 11/15/17 14:51 Urojet MM 11/15/17 14:45 20 ml O ONE Administration Magnesium Hydroxide 30 ml 11/20/17 06:19 11/20/17 07:20 Mom PO 30 ml DAILY PRN Administration Constipation Magnesium Oxide 400 mg 11/20/17 21:00 11/23/17 09:59 Magox PO 400 mg BID KEVYN Administration Metolazone 5 mg 11/19/17 09:00 11/19/17 08:44 Zaroxolyn PO 11/19/17 09:01 5 mg DAILY KEVYN Administration Metolazone 5 mg 11/20/17 09:00 11/22/17 09:01 Zaroxolyn PO 5 mg DAILY KEVYN Administration Morphine Sulfate 2 mg 11/15/17 13:44 11/15/17 13:59 Morphine Sulf 2 Mg Inj IVP 11/15/17 13:45 2 mg O ONE Administration Nicotine 14 mg 11/15/17 15:58 11/15/17 16:05 Nicoderm TD 11/15/17 15:59 14 mg O ONE Administration Pharmacy Consult 1 each 11/19/17 17:11 11/19/17 17:37 Pharmacy Consult - Fall Risk 11/19/17 17:12 1 each ONE TIME ONE Administration Pharmacy Consult each 11/21/17 21:23 Pharmacy Consult - Fall Risk 11/21/17 21:24 ONE TIME ONE Senna/Docusate Sodium 1 tab 11/19/17 13:08 11/19/17 13:10 Senna Plus Tablet PO 11/19/17 13:09 1 tab O ONE Administration Senna/Docusate Sodium 1 tab 11/20/17 09:00 11/22/17 09:02 Senna Plus Tablet PO 1 tab DAILY KEVYN Administration Sodium Phosphate 1 enema 11/21/17 14:45 11/22/17 15:41 Fleet Enema GA 1 enema DAILY PRN Administration Constipation Vancomycin HCl 1 each 11/15/17 19:32 11/15/17 22:45 Pharmacy Consult - Vancomycin 11/15/17 19:33 1 each O ONE Administration - Constitutional no acute distress, well nourished, cooperative - Routine HEENT Exam Head: Present: normocephalic ENT: Present: mucous membranes dry - Routine Neck Exam Absent: JVD, carotid bruit - Routine Chest/Breast/Axilla Exam Chest wall: Absent: tenderness - Routine Respiratory Exam Present: CTA bilaterally. Absent: dyspnea, rales, crackles - Routine Cardiovascular Exam Present: irregularly irregular - Routine Abdominal Exam Present: soft, non tender - Routine Extremities Exam Present: no edema - Routine Skin Exam Present: intact, dry, warm - Routine Neurological Exam Present: alert - Routine Psychiatric Exam Present: normal affect - Urinary Catheter Management Urethral Cath placed during this visit: yes Insertion date: 11/15/17 Insertion time: 15:13 Results 11/23/17 04:22 11/23/17 04:22 CBC 11/23/17 Range/Units 04:22 WBC 5.7 (4.5-11.0) T/MM3 RBC 3.32 L (4.50-5.90) M/MM3 Hgb 8.7 L (13.5-17.5) GM/DL Hct 28.5 L (41-53) % Plt Count 305 (130-400) T/MM3 Neut # (Auto) 3.5 (1.8-7.7) T/MM3 Lymph # (Auto) 0.8 L (1-4.8) T/MM3 [place] # (Auto) 0.9 H (0-0.8) T/MM3 Eos # (Auto) 0.3 (0-0.5) T/MM3 Baso # (Auto) 0.0 (0-0.2) T/MM3 Comprehensive Metabolic Panel 11/23/17 Range/Units 04:22 Sodium 138 (136-146) MEQ/L Potassium 4.0 (3.6-5) MEQ/L Chloride 97 L (98-107) MEQ/L Carbon Dioxide 31 H (22-30) MEQ/L BUN 30.0 H (9-20) MG/DL Creatinine 2.4 H D (0.8-1.5) mg/dL Glucose 129 H (75-110) MG/DL Calcium 8.5 (8.4-10.2) MG/DL Intake and Output 11/23/17 11/23/17 11/23/17 06:59 14:59 22:59 Intake Total 360 / 360 Output Total 175 / 175 950 / 950 Balance -175 / -175 -590 / -590 Intake: Oral 360 / 360 Output: Stool 175 / 175 Urine Amount (Catheter) 950 / 950 Other: Urine Appearance Clear Urine Color Yellow Urine Odor Normal Stool Color Brown Stool Consistency Watery Weight 244 lb 14.937 oz Patient Weight 11/24/17 06:59 Weight 244 lb 14.937 oz - Imaging and Cardiology Imaging & Cardiology Narrative: Date of Exam: 11/22/17 Ordering Provider: Bob Zurita MD Type of Exam(s): XR chest 2V Reason for Exam(s): f/u Indication: f/u Procedure: XR chest 2V: Encounter: Subsequent Comparison: 11/17/2017, 11/16/2017 Technique: AP and lateral views of the chest were obtained. Findings: Lungs and airways: Normal lung volumes. Patchy airspace consolidation within the right greater than left lower lung zones. Normal pulmonary vasculature. Pleura: Suggestion of trace pleural effusions on the lateral radiograph. No pneumothorax. Heart and mediastinum: The cardiomediastinal silhouette and great vessels appear unchanged. Osseous structures and soft tissues: No acute osseous abnormality is seen. Degenerative arthrosis of the shoulders. Likely old right rib fractures. Impression: Patchy airspace consolidation within the right greater than left lower lung zones with suggestion of trace pleural effusions. . 11/23/17 17:09 Assessment and Plan - Assessment and Plan (1) Pulmonary embolus Current visit: Yes Status: Acute (2) Acute on chronic respiratory failure with hypoxia and hypercapnia Current visit: Yes Status: Acute (3) Diastolic CHF Current visit: Yes Status: Chronic (4) Moderate aortic stenosis Current visit: Yes Status: Chronic (5) Atrial fibrillation Current visit: Yes Status: Chronic (6) Essential (primary) hypertension Current visit: Yes Status: Chronic - Assessment and Plan 11/21/17 Pulmonary embolus Current visit: Yes Status: Acute - while on warfarin with supratherapeutic INR - IVC filter placed today, tolerated well. - Change Heparin to Eliquis 10mg BID for 1 week then 5mg BID Acute on chronic respiratory failure with hypoxia and hypercapnia Current visit: Yes Status: Acute - managed by medicine Diastolic CHF Current visit: Yes Status: Chronic - EF 60-65% on today's echo - does not appear in acute heart failure, continue current Bumex 1mg BID Moderate aortic stenosis Current visit: Yes Status: Chronic - Will likely need WENDY/ RHC as an outpatient after recovers from this illness to further assess degree of stenosis Atrial fibrillation Current visit: Yes Status: Chronic - Paroxysmal, on chronic anticoagulation with warfarin Essential (primary) hypertension Current visit: Yes Status: Chronic - well controlled. Thank you for allowing us to participate in the care of this patient, we will follow along with you. 11/23/17 Remains in A Fib, rate controlled SCr trending up 1.8 ->2.2 ->2.4. Bumex on hold, continue to monitor BNP in am Hospital Course Summary Disclaimer: The visit summary below is not to be considered part of the above Progress Note. Hospital Course: 11/15/17 Admit, inpatient. Expect stay to exceed 2 overnights given severity of his respiratory failure requiring BiPAP and further workup given his new findings of pulmonary nodules. Start heparin drip for PE/DVT, suspect patient may have warfarin resistance. Pharmacy to manage. Pt was DC'd from [facility] on apixaban but states he didn't take it due to cost. BiPAP/Vapotherm PRN. DuoNeb's 4 times a day. Budesonide BID. (On documentation from [facility], Advair and Spiriva are listed as outpatient pulmonary meds) Continue home Bumex 1mg BID for CHF. Daily weights and I&O's. Consult Dr. Dhaliwal and Dr Davis/Miguelito regarding pulmonary nodules. Consult Dr. Pedersen re: placement of angela filter. Vancomycin for tx of cellulitis. Pharmacy to manage. Heparin for VTE treatment/prophylaxis. Avoid SCDs given his significant extremity cellulitis. Check TSH, CEA, PSA and repeat BMP and CBC in am given his h/o colon and prostate cancer and to follow electrolytes, renal function and blood counts. Pantoprazole for GERD and GI prophylaxis. DNR. Daughter Shayna (lives in [place]) is patient's DPOA-H. PCP-Otto Hardy 11/16/17 CEA elevated, PSA nl. Dr Mercer consulted and recommended CT abd/pelvis which showed no evidence for mets. Recommends OP PET scan. Currently on 5L O2 per nasal canula. Requires BiPAP at night and prn. Hgb dropped from 9.2 to 7.6 this am. Repeat hgb this afternoon was 8.0. Repeat in am. Pt continues on vancomycin (Day2) for cellulitis. Tmax 100.2 this am at 0746. Cont Heparin for VTE treatment/prophylaxis. Once INR normalizes, Dr. Pedersen will consider placement of Angela filter. 11/17/17 Vancomycin day #3 for cellulitis. White count has been normal throughout his stay. No further fevers. Hemoglobin lower again today. 9.2--7.6--8.0--7.6. Follow closely. Patient had B12/folate and iron studies performed during recent hospitalization in [place]. Likely has chronic blood loss secondary to anticoagulation. Weight is up 2.5kg since admission. CXR suggestive of pulmonary edema. Give additional 1mg Bumex IV. Creatinine has progressively worsened. 0.3--1.6--1.7. Will see if this improves with diuresis. Levsin added for bladder spasm. Vancomycin level being checked this evening-may require dose adjustment with slight increased creatinine. 11/18/17 Vancomycin day #4 for cellulitis. White count has been normal throughout his stay. No further fevers. Add Cipro for gram-negative coverage-patient reports he is tolerated this well previously. Hgb improved to 8.0. INR down to 2.8; poss Angela placement when INR is subtherapeutic. Continue heparin gtt as INR drifts down. Diuresed yesterday with Bumex IV x1. Weight is down 3 kg and creatinine improved to 1.6. Continue oral bumex. Mg stable at 1.7. 11/19/17 Vancomycin day #5, Cipro day #2 for cellulitis. Hgb 8.0-->7.4. Continue to monitor. INR 2.18 today Kidney function continues to improve 1.7-->1.6-->1.5. Suspect improvement related to increased diuresis. Zaroxolyn 5 mg po given this morning, will continue Bumex 1 mg by mouth twice a day Currently on Vapotherm with O2 flow rate 37 L/min 11/20/17 Vancomycin day #6, Cipro day #3 for cellulitis. White count has been normal throughout his stay. No further fevers. Hgb 8.0-->7.4-->7.6. Continue to monitor. Magnesium low - IV replacement given and started on 400mg BID po. INR 1.65 today- poss IVC placement tomorrow by Dr. Pedersen. Continues on heparin gtt. Dr. Pedersen indicated he would put in the orders for NPO and holding the Heparin. Currently on Vapotherm with O2 flow rate 25 L/min, down from 37. Diamox given x 1 for hypercapnia. 11/21/17 Vancomycin day #7, Cipro day #4 for cellulitis. White count normal. Hgb 8.0-->7.4-->7.6-->7.5. Given his SOA and CHF, will transfuse 1U PRBC's. Lasix x1 following transfusion INR 1.41 today- IVC filter placement planned today by Dr. Pedersen. Continues on heparin gtt. (Holding before procedure.) Creatinine up 1.5-->1.8. Currently on Bumex 1 mg by mouth twice a day. Currently on Vapotherm with O2 flow rate 25 L/min. FiO2 40% Echo and consult Dr. Crenshaw re: CHF/SOA. Diamox given x 1 for hypercapnia. Patient continues with Siddiqui. Continue for diuresis and accurate I&O. Levsin for bladder spasms. 11/22/17 Vancomycin day #8 - can discontinue. Continue Cipro day #5 for cellulitis. White count normal. IVC filter placement 11/[address] Pedersen. On Eliquis 10mg bid x 7 d then 5mg bid. Creatinine up 1.5-->1.8-->2.2. Could be up in response to contrast used with placement of filter. BMP in am. Follow hgb - 1U PRBC's 11/21. Hgb 8.8 today. Start bladder training. Hope to DC cath later today or tomorrow. Dr Crenshaw rec OP WENDY and RHC. Continue Bumex. No sign of acute CHF. Discussed with pt he needs to work with PT/OT if he wants to return home. He agreed to work with them this afternoon. 11/23/17 Continues on day 6 of clindamycin for tx of cellulitis. Unfortunately Ct continues to trend up 1.5-->1.8-->2.2 -->2.4 today Continue to work on weaning down oxygen Hgb stable at 8.7. Attempted to do bladder retraining however pt c/o ureteral pain IVC filter placement 11/[address] Pedersen. On Eliquis 10 bid. Decrease to 5mg bid on 11/28. PT/OT if he wants to return home- Discussed with CM
[2017-11-23] MEDS: TAMSULOSIN 0.4 MG CAPSULE PO SCH (21:28)
[2017-11-24] MEDS: BUDESONIDE INH.SOLN 0.5mg/2ml NEB AEROSOL SCH ×2 (06:49→18:52)
[2017-11-24] MEDS: ALBUTEROL/IPRATROPIUM 2.5mg-0.5mg/3ml NEB AEROSOL SCH ×4 (06:49→18:52)
[2017-11-24] MEDS: PANTOPRAZOLE 40 MG TABLET PO SCH ×2 (08:50→21:50)
[2017-11-24] MEDS: CYANOCOBALAMIN (B-12) 500mcg TABLET PO SCH (08:50)
[2017-11-24] MEDS: MULTI-VIT + MINERAL (Opti-gen) TABLET PO SCH (08:50)
[2017-11-24] MEDS: ASCORBIC ACID 500 MG TABLET PO SCH (08:51)
[2017-11-24] MEDS: LORATADINE 10 MG TABLET PO SCH (08:51)
[2017-11-24] MEDS: SENNOSIDES 8.6 MG TABLET PO SCH ×2 (08:51→21:50)
[2017-11-24] MEDS: NICOTINE 14 MG PATCH TD SCH (08:51)
[2017-11-24] MEDS: CIPROFLOXACIN 500 MG TABLET PO SCH ×2 (08:51→21:51)
[2017-11-24] MEDS: NICOTINE PATCH REMOVAL TD SCH (08:51)
[2017-11-24] MEDS: POLYETHYL GLYCOL 3350 17gm PACKET PO SCH (08:52)
[2017-11-24] MEDS: APIXABAN 5 MG TABLET PO SCH ×2 (09:01→21:51)
--- NOTE | 2017-11-24 09:25 | Progress Note ---
- Date 11/24/17 Subjective: F/U: acute respiratory failure with hypoxia, PE, s/p IVC filter placement Mr. Chan is seen this morning while sitting on the edge of his bed, eating breakfast. Nursing is present during the exam. He complains about the fit of the BiPAP mask, reporting that his home mask fits better. When asked if he would like to try and get his home BiPAP brought up to the hospital, he declined stating that he anticipates leaving the hospital soon. He denies any physical complaints or concerns. He reports that his breathing is stable and is breathing easily at his base line of 3L oxygen via NC. His appetite is stable and his bowels are moving. On exam, he is noted to have increased right lower extremity swelling as compared to the left and complains of calf pain with palpation. Labs today revealed stable anemia (hgb 8.5) and asymptomatic. SCr decreased slightly, though still elevated above base line at 2.3 with BUN at 35. BMP improved at 1050. He continues to be followed by Dr. Mercer (onc) who recommends continuation of supportive cares and recommends follow up as outpatient to obtain PET scan for further evaluation of new pulmonary nodules given his history of colon and prostate cancer. He also continues to be followed by Dr. Flower for his diastolic heart failure, and a-fib. Telemetry reveals his rate is controlled. His Bumex remains on hold given his elevated creatine. Objective Vital signs: Temperature 97.4 F 11/24/17 07:31 Pulse Rate 78 11/24/17 07:31 Respiratory Rate 22 11/24/17 07:31 Blood Pressure 108/58 11/24/17 07:31 Pulse Oximetry 100 11/24/17 07:31 Rhythm: Atrial Fibrillation with Normal Ventricular Rate Height/Weight/BMI: Height 6 ft 2 in Weight 238 lb 5.115 oz Comments: Patient is sitting on the edge of the bed, eagerly eating his breakfast with nursing present. Breathing easily on baseline 3L oxygen. - Constitutional Present: no acute distress, well nourished, well developed, obese, cooperative - Routine HEENT Exam Head: Present: normocephalic, atraumatic Eye: Present: PERRL. Absent: conjunctival icterus ENT: Present: mucous membranes moist, oropharynx clear Comments: Actively eating on exam. - Routine Respiratory Exam Present: decreased breath sounds. Absent: respiratory distress, wheezes - Routine Cardiovascular Exam Present: S1, S2, murmur, irregular rhythm - Routine Abdominal Exam Present: soft, normoactive bowel sounds, non tender - Routine Extremities Exam Present: edema (R>L), full ROM, pulses intact, calf tenderness (right) - Routine Back/Spine/Pelvis Exam Back/Spine: Present: full ROM. Absent: vertebral tenderness - Routine Musculoskeletal Exam Musculoskeletal: Present: no clubbing or cyanosis, moving extremities well - Routine Skin Exam Present: dry, warm Comments: Afebrile. Redness to right lower extremity with swelling as compared to left. No obvious increased warmth or lesions. - Routine Neurological Exam Present: alert, oriented X3, moving all extremities, hearing grossly intact ( slightly hard of hearing), normal speech - Routine Psychiatric Exam Present: cooperative Results - Labs CBC & Chem 7: 11/24/17 04:35 11/24/17 04:35 Microbiology Results: Microbiology 11/15/17 14:13 Peripheral/Iv Start Blood Culture - Final No Growth After 5 Days 11/15/17 14:19 Peripheral/Iv Start Blood Culture - Final No Growth After 5 Days 11/15/17 15:08 Urine, Voided (Cc/notcc) Urine Culture - Final No Growth After 2 Days Assessment and Plan Assessment and Plan: Assessment Acute respiratory failure with hypoxia Pulmonary embolism-right middle and lower lobes (despite chronic anticoagulation with warfarin and current INR of 5.3) IVC filter placement 11/[address] Pedersen Nonocclusive DVT-right superficial femoral vein-DVT originally identified [facility] several weeks ago Left upper lobe pulmonary nodules-suspicious for metastatic disease Cellulitis right lower extremity COPD-chronic O2 - w/ possible exacerbation Chronic respiratory failure with hypoxia-home Trilogy CHF-rule out acute exacerbation Hypertension Valvular heart disease-moderate (based on echo 08/15) CKD (ave creatinine 1.5) Paroxysmal atrial fibrillation with chronic anticoagulation with warfarin Supratherapeutic INR- present on admission Osteoarthritis History of prostate cancer - treated with radiation History of colon cancer-with surgical excision History of tobacco addiction-quit one month ago History of TIA GERD Urethral stricture Chronic lymphedema AAA, 3 cm Normocytic anemia-POA (Labs done 10/26/17: Fe 40, TIBC 323, Sat 12%, transferrin 217, ferritin 30, B12 1452, folate 13.1). Anemia likely chronic ds and chronic blood loss secondary to anticoagulation Transfusion 1U PRBC 11/21. Obesity with BMI 32.6 Plan Continues on day 6 of CIPRO for treatment of suspected cellulitis to right lower extremity. SCr remains elevated above base line but trending down; 1.5-->1.8-->2.2 -->2.4-- >2.3 today. Will continue to monitor closely. Patient breathing easily on baseline oxygen at 3L. Continue to work on weaning down as able. Bumex remains on hold given renal function. Monitor closely for signs of fluid overload. Weight down since admission. Hgb stable at 8.5. Continue to monitor closely as trending down slowly. No signs of acute bleeding. Consider attempting to do bladder retraining again today - he complained of ureteral pain yesterday. Patient complains of right calf pain with increased size as compared to left. US on 11/15/17 revealed nonocclusive DVT in right superficial femoral vein. IVC filter placement 11/[address] Pedersen. On Eliquis 10 bid. Decrease to 5mg bid on 11/28. PT/OT if he wants to return home- Discussed with CM Recheck labs in AM to monitor blood counts, electrolytes and renal function. DVT Prophylaxis: Eliquis GI Prophylaxis: Protonix Resuscitation Status: Do Not Resuscitate - Time spent with patient Time with patient PN: 30 minutes - Physician Narrative Physician: Bob Zurita MD Narrative: Date: 11/24/17 Time: 1614 Have independently interviewed and examined pt. Chart reviewed. Case discussed with my PA. Care plan developed with my supervision; agree with above. Doing about the same. Getting up more-strength doing alright. Urinating well without Siddiqui. Bowels slow, but moving. Breathing about the same. Does not cough /congestion with some sputum mobilization. Notes chronic nasal congestion/ drainage. No f/c. Lungs: decreased, upper airway noises. CV: irregularly irregular AB: soft nt/ nd EXT: +2 edema to RLE (side of DVT) MSE: awake alert appropriate Plan: Creatinine not increasing-encouraging finding. Add Acapella to help loosen secretions. Continue with supportive care. Likely home soon - concern with renal status currently. Hospital Course Summary Disclaimer: The visit summary below is not to be considered part of the above Progress Note. Hospital Course: 11/15/17 Admit, inpatient. Expect stay to exceed 2 overnights given severity of his respiratory failure requiring BiPAP and further workup given his new findings of pulmonary nodules. Start heparin drip for PE/DVT, suspect patient may have warfarin resistance. Pharmacy to manage. Pt was DC'd from [facility] on apixaban but states he didn't take it due to cost. BiPAP/Vapotherm PRN. DuoNeb's 4 times a day. Budesonide BID. (On documentation from [facility], Advair and Spiriva are listed as outpatient pulmonary meds) Continue home Bumex 1mg BID for CHF. Daily weights and I&O's. Consult Dr. Dhaliwal and Dr Davis/Miguelito regarding pulmonary nodules. Consult Dr. Pedersen re: placement of ne filter. Vancomycin for tx of cellulitis. Pharmacy to manage. Heparin for VTE treatment/prophylaxis. Avoid SCDs given his significant extremity cellulitis. Check TSH, CEA, PSA and repeat BMP and CBC in am given his h/o colon and prostate cancer and to follow electrolytes, renal function and blood counts. Pantoprazole for GERD and GI prophylaxis. DNR. Daughter Shayna (lives in [place]) is patient's DPOA-H. PCP-Otto Hardy 11/16/17 CEA elevated, PSA nl. Dr Mercer consulted and recommended CT abd/pelvis which showed no evidence for mets. Recommends OP PET scan. Currently on 5L O2 per nasal canula. Requires BiPAP at night and prn. Hgb dropped from 9.2 to 7.6 this am. Repeat hgb this afternoon was 8.0. Repeat in am. Pt continues on vancomycin (Day2) for cellulitis. Tmax 100.2 this am at 0746. Cont Heparin for VTE treatment/prophylaxis. Once INR normalizes, Dr. Pedersen will consider placement of [place] filter. 11/17/17 Vancomycin day #3 for cellulitis. White count has been normal throughout his stay. No further fevers. Hemoglobin lower again today. 9.2--7.6--8.0--7.6. Follow closely. Patient had B12/folate and iron studies performed during recent hospitalization in [place]. Likely has chronic blood loss secondary to anticoagulation. Weight is up 2.5kg since admission. CXR suggestive of pulmonary edema. Give additional 1mg Bumex IV. Creatinine has progressively worsened. 0.3--1.6--1.7. Will see if this improves with diuresis. Levsin added for bladder spasm. Vancomycin level being checked this evening-may require dose adjustment with slight increased creatinine. 11/18/17 Vancomycin day #4 for cellulitis. White count has been normal throughout his stay. No further fevers. Add Cipro for gram-negative coverage-patient reports he is tolerated this well previously. Hgb improved to 8.0. INR down to 2.8; poss [place] placement when INR is subtherapeutic. Continue heparin gtt as INR drifts down. Diuresed yesterday with Bumex IV x1. Weight is down 3 kg and creatinine improved to 1.6. Continue oral bumex. Mg stable at 1.7. 11/19/17 Vancomycin day #5, Cipro day #2 for cellulitis. Hgb 8.0-->7.4. Continue to monitor. INR 2.18 today Kidney function continues to improve 1.7-->1.6-->1.5. Suspect improvement related to increased diuresis. Zaroxolyn 5 mg po given this morning, will continue Bumex 1 mg by mouth twice a day Currently on Vapotherm with O2 flow rate 37 L/min 11/20/17 Vancomycin day #6, Cipro day #3 for cellulitis. White count has been normal throughout his stay. No further fevers. Hgb 8.0-->7.4-->7.6. Continue to monitor. Magnesium low - IV replacement given and started on 400mg BID po. INR 1.65 today- poss IVC placement tomorrow by Dr. Pedersen. Continues on heparin gtt. Dr. Pedersen indicated he would put in the orders for NPO and holding the Heparin. Currently on Vapotherm with O2 flow rate 25 L/min, down from 37. Diamox given x 1 for hypercapnia. 11/21/17 Vancomycin day #7, Cipro day #4 for cellulitis. White count normal. Hgb 8.0-->7.4-->7.6-->7.5. Given his SOA and CHF, will transfuse 1U PRBC's. Lasix x1 following transfusion INR 1.41 today- IVC filter placement planned today by Dr. Pedersen. Continues on heparin gtt. (Holding before procedure.) Creatinine up 1.5-->1.8. Currently on Bumex 1 mg by mouth twice a day. Currently on Vapotherm with O2 flow rate 25 L/min. FiO2 40% Echo and consult Dr. Crenshaw re: CHF/SOA. Diamox given x 1 for hypercapnia. Patient continues with Siddiqui. Continue for diuresis and accurate I&O. Levsin for bladder spasms. 11/22/17 Vancomycin day #8 - can discontinue. Continue Cipro day #5 for cellulitis. White count normal. IVC filter placement 11/[address] Pedersen. On Eliquis 10mg bid x 7 d then 5mg bid. Creatinine up 1.5-->1.8-->2.2. Could be up in response to contrast used with placement of filter. BMP in am. Follow hgb - 1U PRBC's 11/21. Hgb 8.8 today. Start bladder training. Hope to DC cath later today or tomorrow. Dr Crenshaw rec OP WENDY and RHC. Continue Bumex. No sign of acute CHF. Discussed with pt he needs to work with PT/OT if he wants to return home. He agreed to work with them this afternoon. 11/23/17 Continues on day 6 of clindamycin for tx of cellulitis. Unfortunately Ct continues to trend up 1.5-->1.8-->2.2 -->2.4 today. Will hold Bumex. Continue to work on weaning down oxygen. Hgb stable at 8.7. Attempted to do bladder retraining however pt c/o ureteral pain - will discontinue Siddiqui. IVC filter placement 11/[address] Pedersen. On Eliquis 10 bid. Decrease to 5mg bid on 11/28. PT/OT if he wants to return home - Discussed with CM 11/24/17 Continues on day 6 of CIPRO for treatment of suspected cellulitis to right lower extremity. SCr remains elevated above base line but trending down; 1.5-->1.8-->2.2 -->2.4-- >2.3 today. Will continue to monitor closely. Patient breathing easily on baseline oxygen at 3L. Continue to work on weaning down as able. Bumex remains on hold given renal function. Monitor closely for signs of fluid overload. Weight down since admission. Hgb stable at 8.5. Continue to monitor closely as trending down slowly. No signs of acute bleeding. Consider attempting to do bladder retraining again today - he complained of ureteral pain yesterday. Patient complains of right calf pain with increased size as compared to left. US on 11/15/17 revealed nonocclusive DVT in right superficial femoral vein. IVC filter placement 11/[address] Pedersen. On Eliquis 10 bid. Decrease to 5mg bid on 11/28. PT/OT if he wants to return home- Discussed with CM Recheck labs in AM to monitor blood counts, electrolytes and renal function.
[2017-11-24] MEDS: TAMSULOSIN 0.4 MG CAPSULE PO SCH (21:50)
[2017-11-25] MEDS: ALBUTEROL/IPRATROPIUM 2.5mg-0.5mg/3ml NEB AEROSOL SCH ×4 (06:50→20:02)
[2017-11-25] MEDS: BUDESONIDE INH.SOLN 0.5mg/2ml NEB AEROSOL SCH ×2 (06:50→20:02)
[2017-11-25] MEDS: POLYETHYL GLYCOL 3350 17gm PACKET PO SCH (09:05)
[2017-11-25] MEDS: NICOTINE PATCH REMOVAL TD SCH (09:05)
[2017-11-25] MEDS: NICOTINE 14 MG PATCH TD SCH (09:05)
[2017-11-25] MEDS: SENNOSIDES 8.6 MG TABLET PO SCH ×2 (09:06→21:20)
[2017-11-25] MEDS: ASCORBIC ACID 500 MG TABLET PO SCH (09:06)
[2017-11-25] MEDS: PANTOPRAZOLE 40 MG TABLET PO SCH ×2 (09:06→21:19)
[2017-11-25] MEDS: APIXABAN 5 MG TABLET PO SCH ×2 (09:06→21:20)
[2017-11-25] MEDS: CYANOCOBALAMIN (B-12) 500mcg TABLET PO SCH (09:06)
[2017-11-25] MEDS: CIPROFLOXACIN 500 MG TABLET PO SCH ×2 (09:06→21:20)
[2017-11-25] MEDS: MULTI-VIT + MINERAL (Opti-gen) TABLET PO SCH (09:06)
[2017-11-25] MEDS: LORATADINE 10 MG TABLET PO SCH (09:06)
--- NOTE | 2017-11-25 11:42 | Progress Note ---
- Date 11/25/17 Subjective: F/U: acute respiratory failure with hypoxia, PE, s/p IVC filter placement . Mr. Chan is seen first thing this morning while he is eating breakfast. He reports that he is doing well and denies any current complaints or concerns. He states that his breathing is stable. No chest pain, increased shortness of breath, abdominal pain, nausea, vomiting or dysuria. Appetite is stable and bowels are moving. Anticipate discharge in the near future, hopefully today. Objective Vital signs: Temperature 95.2 F L 11/25/17 07:38 Pulse Rate 77 11/25/17 09:00 Respiratory Rate 21 11/25/17 10:58 Blood Pressure 113/57 11/25/17 07:38 Pulse Oximetry 95 11/25/17 10:58 Rhythm: Atrial Fibrillation with Normal Ventricular Rate Height/Weight/BMI: Height 6 ft 2 in Weight 240 lb 4.862 oz Comments: Eating breakfast. - Constitutional Present: no acute distress, well nourished, well developed, obese, cooperative - Routine HEENT Exam Head: Present: normocephalic, atraumatic Eye: Present: PERRL. Absent: conjunctival icterus ENT: Present: mucous membranes moist, oropharynx clear - Routine Respiratory Exam Present: decreased breath sounds. Absent: respiratory distress Comments: course upper airway noise; no cough or conversational dyspnea. - Routine Cardiovascular Exam Present: S1, S2, irregular rhythm - Routine Abdominal Exam Present: soft, normoactive bowel sounds, non tender - Routine Extremities Exam Present: edema (R>L), full ROM, pulses intact - Routine Back/Spine/Pelvis Exam Back/Spine: Present: full ROM. Absent: vertebral tenderness - Routine Musculoskeletal Exam Musculoskeletal: Present: moving extremities well - Routine Skin Exam Present: intact, dry, warm Comments: Afebrile. - Routine Neurological Exam Present: alert, oriented X3, moving all extremities, hearing grossly intact, normal speech - Routine Lymphatic Exam Lymphatic: Absent: lymphedema - Routine Psychiatric Exam Present: cooperative Results - Labs CBC & Chem 7: 11/25/17 04:51 11/25/17 04:51 Microbiology Results: Microbiology 11/15/17 14:13 Peripheral/Iv Start Blood Culture - Final No Growth After 5 Days 11/15/17 14:19 Peripheral/Iv Start Blood Culture - Final No Growth After 5 Days 11/15/17 15:08 Urine, Voided (Cc/notcc) Urine Culture - Final No Growth After 2 Days Assessment and Plan Assessment and Plan: Assessment Acute respiratory failure with hypoxia Pulmonary embolism-right middle and lower lobes (despite chronic anticoagulation with warfarin and current INR of 5.3) IVC filter placement 11/[address] Pedersen Nonocclusive DVT-right superficial femoral vein-DVT originally identified [facility] several weeks ago Left upper lobe pulmonary nodules-suspicious for metastatic disease Cellulitis right lower extremity COPD-chronic O2 - w/ possible exacerbation Chronic respiratory failure with hypoxia-home Trilogy CHF-rule out acute exacerbation Hypertension Valvular heart disease-moderate (based on echo 08/15) CKD (ave creatinine 1.5) Paroxysmal atrial fibrillation with chronic anticoagulation with warfarin Supratherapeutic INR- present on admission Osteoarthritis History of prostate cancer - treated with radiation History of colon cancer-with surgical excision History of tobacco addiction-quit one month ago History of TIA GERD Urethral stricture Chronic lymphedema AAA, 3 cm Normocytic anemia-POA (Labs done 10/26/17: Fe 40, TIBC 323, Sat 12%, transferrin 217, ferritin 30, B12 1452, folate 13.1). Anemia likely chronic ds and chronic blood loss secondary to anticoagulation Transfusion 1U PRBC 11/21. Obesity with BMI 32.6 Plan Overall, doing well. Anticipate discharge in the near future, hopefully today. Continues on day 7 of CIPRO for treatment of suspected cellulitis to right lower extremity. SCr stable and trending down, 2.2today. Will continue to monitor closely. Patient breathing easily on baseline oxygen at 3L. Continue to work on weaning down as able. Bumex remains on hold given renal function. Monitor closely for signs of fluid overload. Weight down since admission and remains stable. Hgb trending down slowly (8.8-->8.7-->8.5-->8.2 today). Continue to monitor closely. Patient remains asymptomatic. No signs of acute bleeding. IVC filter placement 11/[address] Pedersen. On Eliquis 10 bid. Decrease to 5mg bid on 11/28. DVT Prophylaxis: Eliquis GI Prophylaxis: Protonix Resuscitation Status: Do Not Resuscitate - Time spent with patient Time with patient PN: 25 minutes - Physician Narrative Physician: Bob Zurita MD Narrative: Date 11/25/17 Time 1458 Have independently interviewed and examined pt. Chart reviewed. Case discussed with nursing & my PA. Care plan developed with my supervision; agree with above. Resting this afternoon. Doing well overall. Breathing stable on 3.5L with normal saturations (but feels breaths easier on BiPAP). Using BiPAP when resting /sleeping. Tolerating, other than not liking how the mask fits. Eating well. No ab pain. Stools have been moving. Urinating well. Creatinine showing decrease. Lungs: decreased, no distress CV: irregular AB: soft nt MSE: awake alert Plan: Continue with care and support. Encourage continued ambulation. Recheck lab in am. Likely home tomorrow if continues to do well. Hospital Course Summary Disclaimer: The visit summary below is not to be considered part of the above Progress Note. Hospital Course: 11/15/17 Admit, inpatient. Expect stay to exceed 2 overnights given severity of his respiratory failure requiring BiPAP and further workup given his new findings of pulmonary nodules. Start heparin drip for PE/DVT, suspect patient may have warfarin resistance. Pharmacy to manage. Pt was DC'd from [facility] on apixaban but states he didn't take it due to cost. BiPAP/Vapotherm PRN. DuoNeb's 4 times a day. Budesonide BID. (On documentation from [facility], Advair and Spiriva are listed as outpatient pulmonary meds) Continue home Bumex 1mg BID for CHF. Daily weights and I&O's. Consult Dr. Dhaliwal and Dr Davis/Miguelito regarding pulmonary nodules. Consult Dr. Pedersen re: placement of angela filter. Vancomycin for tx of cellulitis. Pharmacy to manage. Heparin for VTE treatment/prophylaxis. Avoid SCDs given his significant extremity cellulitis. Check TSH, CEA, PSA and repeat BMP and CBC in am given his h/o colon and prostate cancer and to follow electrolytes, renal function and blood counts. Pantoprazole for GERD and GI prophylaxis. DNR. Daughter Shayna (lives in [place]) is patient's DPOA-H. PCP-Otto Hardy 11/16/17 CEA elevated, PSA nl. Dr Mercer consulted and recommended CT abd/pelvis which showed no evidence for mets. Recommends OP PET scan. Currently on 5L O2 per nasal canula. Requires BiPAP at night and prn. Hgb dropped from 9.2 to 7.6 this am. Repeat hgb this afternoon was 8.0. Repeat in am. Pt continues on vancomycin (Day2) for cellulitis. Tmax 100.2 this am at 0746. Cont Heparin for VTE treatment/prophylaxis. Once INR normalizes, Dr. Pedersen will consider placement of Angela filter. 11/17/17 Vancomycin day #3 for cellulitis. White count has been normal throughout his stay. No further fevers. Hemoglobin lower again today. 9.2--7.6--8.0--7.6. Follow closely. Patient had B12/folate and iron studies performed during recent hospitalization in [place]. Likely has chronic blood loss secondary to anticoagulation. Weight is up 2.5kg since admission. CXR suggestive of pulmonary edema. Give additional 1mg Bumex IV. Creatinine has progressively worsened. 0.3--1.6--1.7. Will see if this improves with diuresis. Levsin added for bladder spasm. Vancomycin level being checked this evening-may require dose adjustment with slight increased creatinine. 11/18/17 Vancomycin day #4 for cellulitis. White count has been normal throughout his stay. No further fevers. Add Cipro for gram-negative coverage-patient reports he is tolerated this well previously. Hgb improved to 8.0. INR down to 2.8; poss [place] placement when INR is subtherapeutic. Continue heparin gtt as INR drifts down. Diuresed yesterday with Bumex IV x1. Weight is down 3 kg and creatinine improved to 1.6. Continue oral Bumex. Mg stable at 1.7. 11/19/17 Vancomycin day #5, Cipro day #2 for cellulitis. Hgb 8.0-->7.4. Continue to monitor. INR 2.18 today. Kidney function continues to improve 1.7-->1.6-->1.5. Suspect improvement related to increased diuresis. Zaroxolyn 5 mg po given this morning, will continue Bumex 1 mg by mouth twice a day. Currently on Vapotherm with O2 flow rate 37 L/min. 11/20/17 Vancomycin day #6, Cipro day #3 for cellulitis. White count has been normal throughout his stay. No further fevers. Hgb 8.0-->7.4-->7.6. Continue to monitor. Magnesium low - IV replacement given and started on 400mg BID po. INR 1.65 today- poss IVC placement tomorrow by Dr. Pedersen. Continues on heparin gtt. Dr. Pedersen indicated he would put in the orders for NPO and holding the Heparin. Currently on Vapotherm with O2 flow rate 25 L/min, down from 37. Diamox given x 1 for hypercapnia. 11/21/17 Vancomycin day #7, Cipro day #4 for cellulitis. White count normal. Hgb 8.0-->7.4-->7.6-->7.5. Given his SOA and CHF, will transfuse 1U PRBC's. Lasix x1 following transfusion. INR 1.41 today- IVC filter placement planned today by Dr. Pedersen. Continues on heparin gtt. (Holding before procedure.) Creatinine up 1.5-->1.8. Currently on Bumex 1 mg by mouth twice a day. Currently on Vapotherm with O2 flow rate 25 L/min. FiO2 40%. Echo and consult Dr. Crenshaw re: CHF/SOA. Diamox given x 1 for hypercapnia. Patient continues with Siddiqui. Continue for diuresis and accurate I&O. Levsin for bladder spasms. 11/22/17 Vancomycin day #8 - can discontinue. Continue Cipro day #5 for cellulitis. White count normal. IVC filter placement 11/[address] Pedersen. On Eliquis 10mg bid x 7 d then 5mg bid. Creatinine up 1.5-->1.8-->2.2. Could be up in response to contrast used with placement of filter. BMP in am. Follow hgb - 1U PRBC's 11/21. Hgb 8.8 today. Start bladder training. Hope to DC cath later today or tomorrow. Dr Cernshaw rec OP WENDY and RHC. Continue Bumex. No sign of acute CHF. Discussed with pt he needs to work with PT/OT if he wants to return home. He agreed to work with them this afternoon. 11/23/17 Continues on day 6 of clindamycin for tx of cellulitis. Unfortunately Ct continues to trend up 1.5-->1.8-->2.2 -->2.4 today. Will hold Bumex. Continue to work on weaning down oxygen. Hgb stable at 8.7. Attempted to do bladder retraining however pt c/o ureteral pain - will discontinue Siddiqui. IVC filter placement 11/[address] Pedersen. On Eliquis 10 bid. Decrease to 5mg bid on 11/28. PT/OT if he wants to return home - Discussed with CM. 11/24/17 Continues on day 6 of CIPRO for treatment of suspected cellulitis to right lower extremity. SCr remains elevated above base line but trending down; 1.5-->1.8-->2.2 -->2.4-- >2.3 today. Will continue to monitor closely. Patient breathing easily on baseline oxygen at 3L. Continue to work on weaning down as able. Bumex remains on hold given renal function. Monitor closely for signs of fluid overload. Weight down since admission. Hgb stable at 8.5. Continue to monitor closely as trending down slowly. No signs of acute bleeding. Consider attempting to do bladder retraining again today - he complained of ureteral pain yesterday. Patient complains of right calf pain with increased size as compared to left. US on 11/15/17 revealed nonocclusive DVT in right superficial femoral vein. Recheck labs in AM to monitor blood counts, electrolytes and renal function. 11/25/17 Overall, doing well. Anticipate discharge in the near future, hopefully today. Continues on day 7 of CIPRO for treatment of suspected cellulitis to right lower extremity. SCr stable and trending down, 2.2 today. Will continue to monitor closely. Patient breathing easily on baseline oxygen at 3L. Continue to work on weaning down as able. Bumex remains on hold given renal function. Monitor closely for signs of fluid overload. Weight down since admission and remains stable. Hgb trending down slowly (8.8-->8.7-->8.5-->8.2 today). Continue to monitor closely. Patient remains asymptomatic. No signs of acute bleeding.
--- NOTE | 2017-11-25 12:36 | Progress Note ---
Oncology Subjective Should on BiPAP. Resting comfortably. No respiratory distress. No nausea or vomiting. Some shortness of breath. Continues with swelling of his legs. Exam Vital signs: Temperature 95.2 F L 11/25/17 07:38 Pulse Rate 77 11/25/17 09:00 Respiratory Rate 21 11/25/17 10:58 Blood Pressure 113/57 11/25/17 07:38 Pulse Oximetry 95 11/25/17 10:58 - Constitutional no acute distress, obese - Routine HEENT Exam Head: Present: normocephalic Eye: Present: EOMI, PERRL - Routine Respiratory Exam Present: decreased breath sounds, prolonged expiratory phase - Routine Cardiovascular Exam Absent: RRR - Routine Abdominal Exam Present: soft, non tender - Routine Extremities Exam Present: edema (3+ with erythema of the right leg) - Routine Skin Exam Present: dry - Routine Neurological Exam Present: alert - Routine Psychiatric Exam Present: normal affect Oncology Results - Labs CBC & Chem 7: 11/25/17 04:51 11/25/17 04:51 Labs: Short CBC 11/25/17 Range/Units 04:51 WBC 6.2 (4.5-11.0) T/MM3 Hgb 8.2 L (13.5-17.5) GM/DL Hct 27.4 L (41-53) % Plt Count 346 (130-400) T/MM3 BMP 11/25/17 04:51 Sodium 139 Potassium 3.9 Chloride 102 Carbon Dioxide 30 BUN 36.0 H Creatinine 2.2 H Glucose 115 H Calcium 8.5 Laboratory Tests 11/21/17 11/23/17 11/25/17 05:43 04:22 04:51 WBC 6.2 Hgb 8.2 L Plt Count 346 Lymph # (Auto) 0.9 L 0.8 L Band Neutrophils % 3.0 Creatinine 11/25/17 04:51 WBC Hgb Plt Count Lymph # (Auto) Band Neutrophils % Creatinine 2.2 H Assessment and Plan Assessment and Plan: Lung nodules of uncertain etiology. Comorbid conditions severely limited ability to evaluate. Because of his severe COPD needle biopsy would be with significant risk. PET scan would be the only option to evaluate disease and significant finding area that could be safely biopsied. Will await improvement in respiratory status to where that he could lay flat and be able to tolerate PET scan 2. Deep venous thrombosis with chronic venous insufficiency and lower extremity edema. Status post IVC filter and currently on Elaquis. Currently stable 3. Atrial fibrillation with controlled rate 4. Renal insufficiency, chronic probably related to diurese his creatinine is improved today 5. COPD currently on BiPAP for respiratory support Recommendations: Follow-up as an outpatient with appointment. Evaluate if he would be able to tolerate PET scan at that time. - Time Spent With Patient Total time spent is greater than 50% in coordination of care (as documented) at patient's floor/unit and/or counseling patient: less than 15 minutes
[2017-11-25] MEDS: TAMSULOSIN 0.4 MG CAPSULE PO SCH (21:20)
[2017-11-26] MEDS ORDERED: APIXABAN 5 MG TABLET PO SCH
[2017-11-26] MEDS: ALBUTEROL/IPRATROPIUM 2.5mg-0.5mg/3ml NEB AEROSOL SCH ×3 (06:37→15:04)
[2017-11-26] MEDS: BUDESONIDE INH.SOLN 0.5mg/2ml NEB AEROSOL SCH (06:37)
[2017-11-26] MEDS: CYANOCOBALAMIN (B-12) 500mcg TABLET PO SCH (09:08)
[2017-11-26] MEDS: PANTOPRAZOLE 40 MG TABLET PO SCH (09:08)
[2017-11-26] MEDS: SENNOSIDES 8.6 MG TABLET PO SCH (09:08)
[2017-11-26] MEDS: MULTI-VIT + MINERAL (Opti-gen) TABLET PO SCH (09:08)
[2017-11-26] MEDS: CIPROFLOXACIN 500 MG TABLET PO SCH (09:08)
[2017-11-26] MEDS: APIXABAN 5 MG TABLET PO SCH (09:08)
[2017-11-26] MEDS: Oxycodone *IR* 5 MG TABLET PO PRN ×2 (09:09→17:40)
[2017-11-26] MEDS: LORATADINE 10 MG TABLET PO SCH (09:09)
[2017-11-26] MEDS: ASCORBIC ACID 500 MG TABLET PO SCH (09:09)
[2017-11-26] MEDS: NICOTINE PATCH REMOVAL TD SCH (09:14)
[2017-11-26] MEDS: NICOTINE 14 MG PATCH TD SCH (09:14)
[2017-11-26] MEDS: POLYETHYL GLYCOL 3350 17gm PACKET PO SCH (09:15)
--- NOTE | 2017-11-26 11:31 | Progress Note ---
- Date 11/26/17 Subjective: F/U: Acute respiratory failure with hypoxia, Pulmonary embolism-right middle and lower lobes Doing okay today. Breathing feels stable. Maintaining saturation of baseline O2. Eating well. No n/v or ab pain. Leg swelling stable-redness about the same. No f/c. Feels strength doing okay-able to get up and around without excessive difficulty. Up to going home today. Objective Vital signs: Temperature 97.1 F 11/26/17 08:00 Pulse Rate 73 11/26/17 08:00 Respiratory Rate 28 H 11/26/17 10:33 Blood Pressure 96/48 11/26/17 08:00 Pulse Oximetry 99 11/26/17 10:33 Rhythm: Atrial Fibrillation with Normal Ventricular Rate Height/Weight/BMI: Height 1.88 m Weight 108.1 kg - Constitutional Present: well nourished, well developed, average body habitus, obese, disheveled - Routine HEENT Exam Head: Present: normocephalic, atraumatic Eye: Present: EOMI, PERRL ENT: Present: mucous membranes moist - Routine Respiratory Exam Present: decreased breath sounds, distant breath sounds, diminished air movement. Absent: respiratory distress, wheezes, crackles - Routine Cardiovascular Exam Present: irregular rhythm, irregularly irregular - Routine Abdominal Exam Present: soft, normoactive bowel sounds, non distended, non tender - Routine Extremities Exam Present: edema (+1 edema to RLE). Absent: cyanosis, clubbing - Routine Musculoskeletal Exam Musculoskeletal: Present: no clubbing or cyanosis - Routine Skin Exam Present: dry, warm - Routine Neurological Exam Present: alert, oriented X3, CN II-XII intact, moving all extremities, vision grossly intact, hearing grossly intact, normal speech. Absent: motor deficit, altered mental status - Routine Psychiatric Exam Present: normal affect, cooperative Results - Labs CBC & Chem 7: 11/25/17 04:51 11/25/17 04:51 Microbiology Results: Microbiology 11/15/17 14:13 Peripheral/Iv Start Blood Culture - Final No Growth After 5 Days 11/15/17 14:19 Peripheral/Iv Start Blood Culture - Final No Growth After 5 Days 11/15/17 15:08 Urine, Voided (Cc/notcc) Urine Culture - Final No Growth After 2 Days Assessment and Plan (1) Acute on chronic respiratory failure with hypoxia and hypercapnia Current visit: Yes Status: Acute Assessment and Plan: Assessment Acute respiratory failure with hypoxia Pulmonary embolism-right middle and lower lobes (despite chronic anticoagulation with warfarin and current INR of 5.3) IVC filter placement 11/[address] Pedersen Nonocclusive DVT - right superficial femoral vein-DVT originally identified VCSF several weeks ago Left upper lobe pulmonary nodules - suspicious for metastatic disease Cellulitis right lower extremity COPD-chronic O2 - w/ possible exacerbation Chronic respiratory failure with hypoxia-home Trilogy CHF - Chronic diastolic heart failure. Hypertension Valvular heart disease-moderate (based on echo 08/15) Stage III Chronic Kidney Disease Paroxysmal atrial fibrillation with chronic anticoagulation with warfarin Supratherapeutic INR (POA) - resolved Osteoarthritis History of prostate cancer - treated with radiation History of colon cancer-with surgical excision History of tobacco addiction-quit one month ago History of TIA GERD Urethral stricture Chronic lymphedema AAA, 3 cm Normocytic anemia-POA (Labs done 10/26/17: Fe 40, TIBC 323, Sat 12%, transferrin 217, ferritin 30, B12 1452, folate 13.1). Anemia likely chronic ds and chronic blood loss secondary to anticoagulation Transfusion 1U PRBC 11/21. Constipation Obesity with BMI 32.6 Plan Clinically doing well. Breathing on baseline O2. Creatinine stable at 2.2. Weight stable. Eating well. Strength at baseline. Will discharge to home. Home Health arrangements made with [facility]. Low sodium diet. Activities as tolerated. Recommend elevation of LE when at rest - elevate as much as able. Continue with ciprofloxacin 500mg BID for 7 more days for skin coverage. Stress the importance of elevation of legs and compression to help decrease edema. Eliquis 10mg BID for 4 more doses, then can decrease to 5mg BID. Coumadin stopped during hospitalization. Would decrease Bumex to 1 mg daily to help control volume. F/U with Otto Pinedo in 1 week - would recommend rechecking BMP at that time. Will need outpatient follow up with: Dr Dhaliwal for pulmonary care. Dr Davis for oncological care. Dr Crenshaw for cardiovascular care. See orders for details. Case discussed with CM. Time spent with patient care and discharge greater than 30 minutes. DVT Prophylaxis: Eliquis GI Prophylaxis: Protonix Resuscitation Status: Do Not Resuscitate - Physician Narrative Narrative: Date 11/25/17 Time 1458 Have independently interviewed and examined pt. Chart reviewed. Case discussed with nursing & my PA. Care plan developed with my supervision; agree with above. Resting this afternoon. Doing well overall. Breathing stable on 3.5L with normal saturations (but feels breaths easier on BiPAP). Using BiPAP when resting /sleeping. Tolerating, other than not liking how the mask fits. Eating well. No ab pain. Stools have been moving. Urinating well. Creatinine showing decrease. Lungs: decreased, no distress CV: irregular AB: soft nt MSE: awake alert Plan: Continue with care and support. Encourage continued ambulation. Recheck lab in am. Likely home tomorrow if continues to do well. Hospital Course Summary Disclaimer: The visit summary below is not to be considered part of the above Progress Note. Hospital Course: 11/15/17 Admit, inpatient. Expect stay to exceed 2 overnights given severity of his respiratory failure requiring BiPAP and further workup given his new findings of pulmonary nodules. Start heparin drip for PE/DVT, suspect patient may have warfarin resistance. Pharmacy to manage. Pt was DC'd from [facility] on apixaban but states he didn't take it due to cost. BiPAP/Vapotherm PRN. DuoNeb's 4 times a day. Budesonide BID. (On documentation from [facility], Advair and Spiriva are listed as outpatient pulmonary meds) Continue home Bumex 1mg BID for CHF. Daily weights and I&O's. Consult Dr. Dhaliwal and Dr Davis/Miguelito regarding pulmonary nodules. Consult Dr. Pedersen re: placement of angela filter. Vancomycin for tx of cellulitis. Pharmacy to manage. Heparin for VTE treatment/prophylaxis. Avoid SCDs given his significant extremity cellulitis. Check TSH, CEA, PSA and repeat BMP and CBC in am given his h/o colon and prostate cancer and to follow electrolytes, renal function and blood counts. Pantoprazole for GERD and GI prophylaxis. DNR. Daughter Shayna (lives in [place]) is patient's DPOA-H. PCP-Otto Pinedo 11/16/17 CEA elevated, PSA nl. Dr Mercer consulted and recommended CT abd/pelvis which showed no evidence for mets. Recommends OP PET scan. Currently on 5L O2 per nasal canula. Requires BiPAP at night and prn. Hgb dropped from 9.2 to 7.6 this am. Repeat hgb this afternoon was 8.0. Repeat in am. Pt continues on vancomycin (Day2) for cellulitis. Tmax 100.2 this am at 0746. Cont Heparin for VTE treatment/prophylaxis. Once INR normalizes, Dr. Pedersen will consider placement of Angela filter. 11/17/17 Vancomycin day #3 for cellulitis. White count has been normal throughout his stay. No further fevers. Hemoglobin lower again today. 9.2--7.6--8.0--7.6. Follow closely. Patient had B12/folate and iron studies performed during recent hospitalization in [place]. Likely has chronic blood loss secondary to anticoagulation. Weight is up 2.5kg since admission. CXR suggestive of pulmonary edema. Give additional 1mg Bumex IV. Creatinine has progressively worsened. 0.3--1.6--1.7. Will see if this improves with diuresis. Levsin added for bladder spasm. Vancomycin level being checked this evening-may require dose adjustment with slight increased creatinine. 11/18/17 Vancomycin day #4 for cellulitis. White count has been normal throughout his stay. No further fevers. Add Cipro for gram-negative coverage-patient reports he is tolerated this well previously. Hgb improved to 8.0. INR down to 2.8; poss Angela placement when INR is subtherapeutic. Continue heparin gtt as INR drifts down. Diuresed yesterday with Bumex IV x1. Weight is down 3 kg and creatinine improved to 1.6. Continue oral Bumex. Mg stable at 1.7. 11/19/17 Vancomycin day #5, Cipro day #2 for cellulitis. Hgb 8.0-->7.4. Continue to monitor. INR 2.18 today. Kidney function continues to improve 1.7-->1.6-->1.5. Suspect improvement related to increased diuresis. Zaroxolyn 5 mg po given this morning, will continue Bumex 1 mg by mouth twice a day. Currently on Vapotherm with O2 flow rate 37 L/min. 11/20/17 Vancomycin day #6, Cipro day #3 for cellulitis. White count has been normal throughout his stay. No further fevers. Hgb 8.0-->7.4-->7.6. Continue to monitor. Magnesium low - IV replacement given and started on 400mg BID po. INR 1.65 today- poss IVC placement tomorrow by Dr. Pedersen. Continues on heparin gtt. Dr. Pedersen indicated he would put in the orders for NPO and holding the Heparin. Currently on Vapotherm with O2 flow rate 25 L/min, down from 37. Diamox given x 1 for hypercapnia. 11/21/17 Vancomycin day #7, Cipro day #4 for cellulitis. White count normal. Hgb 8.0-->7.4-->7.6-->7.5. Given his SOA and CHF, will transfuse 1U PRBC's. Lasix x1 following transfusion. INR 1.41 today- IVC filter placement planned today by Dr. Pedersen. Continues on heparin gtt. (Holding before procedure.) Creatinine up 1.5-->1.8. Currently on Bumex 1 mg by mouth twice a day. Currently on Vapotherm with O2 flow rate 25 L/min. FiO2 40%. Echo and consult Dr. Crenshaw re: CHF/SOA. Diamox given x 1 for hypercapnia. Patient continues with Siddiqui. Continue for diuresis and accurate I&O. Levsin for bladder spasms. 11/22/17 Vancomycin day #8 - can discontinue. Continue Cipro day #5 for cellulitis. White count normal. IVC filter placement 11/[address] Pedersen. On Eliquis 10mg bid x 7 d then 5mg bid. Creatinine up 1.5-->1.8-->2.2. Could be up in response to contrast used with placement of filter. BMP in am. Follow hgb - 1U PRBC's 11/21. Hgb 8.8 today. Start bladder training. Hope to DC cath later today or tomorrow. Dr Crenshaw rec OP WENDY and RHC. Continue Bumex. No sign of acute CHF. Discussed with pt he needs to work with PT/OT if he wants to return home. He agreed to work with them this afternoon. 11/23/17 Continues on day 6 of clindamycin for tx of cellulitis. Unfortunately Ct continues to trend up 1.5-->1.8-->2.2 -->2.4 today. Will hold Bumex. Continue to work on weaning down oxygen. Hgb stable at 8.7. Attempted to do bladder retraining however pt c/o ureteral pain - will discontinue Siddiqui. IVC filter placement 11/[address] Pedersen. On Eliquis 10 bid. Decrease to 5mg bid on 11/28. PT/OT if he wants to return home - Discussed with CM. 11/24/17 Continues on day 6 of CIPRO for treatment of suspected cellulitis to right lower extremity. SCr remains elevated above base line but trending down; 1.5-->1.8-->2.2 -->2.4-- >2.3 today. Will continue to monitor closely. Patient breathing easily on baseline oxygen at 3L. Continue to work on weaning down as able. Bumex remains on hold given renal function. Monitor closely for signs of fluid overload. Weight down since admission. Hgb stable at 8.5. Continue to monitor closely as trending down slowly. No signs of acute bleeding. Consider attempting to do bladder retraining again today - he complained of ureteral pain yesterday. Patient complains of right calf pain with increased size as compared to left. US on 11/15/17 revealed nonocclusive DVT in right superficial femoral vein. Recheck labs in AM to monitor blood counts, electrolytes and renal function. 11/25/17 Overall, doing well. Anticipate discharge in the near future, hopefully today. Continues on day 7 of CIPRO for treatment of suspected cellulitis to right lower extremity. SCr stable and trending down, 2.2 today. Will continue to monitor closely. Patient breathing easily on baseline oxygen at 3L. Continue to work on weaning down as able. Bumex remains on hold given renal function. Monitor closely for signs of fluid overload. Weight down since admission and remains stable. Hgb trending down slowly (8.8-->8.7-->8.5-->8.2 today). Continue to monitor closely. Patient remains asymptomatic. No signs of acute bleeding. 11/26/17 Clinically doing well. Breathing on baseline O2. Creatinine stable at 2.2. Weight stable. Eating well. Strength at baseline. Will discharge to home. Home Health arrangements made with [facility]. Low sodium diet. Activities as tolerated. Recommend elevation of LE when at rest - elevate as much as able. Continue with ciprofloxacin 500mg BID for 7 more days for skin coverage. Stress the importance of elevation of legs and compression to help decrease edema. Eliquis 10mg BID for 4 more doses, then can decrease to 5mg BID. Coumadin stopped during hospitalization. Would decrease Bumex to 1 mg daily to help control volume. F/U with Otto Pinedo in 1 week - would recommend rechecking BMP at that time. Will need outpatient follow up with: Dr Dhaliwal for pulmonary care. Dr Davis for oncological care. Dr Crenshaw for cardiovascular care. See orders for details.
--- NOTE | 2017-11-26 13:09 | Progress Note ---
Oncology Subjective Alone in room. Planning discharge to home today with home health assistance. Continues with shortness of air intermittently. Denies cough or chest pain. Denies headache. Intermittent diplopia persists. Eating and drinking normally. Denies dysuria/hematuria. Denies diarrhea or constipation. General: No fever, no night sweats Eyes: No redness, no pain, + diplopia ENT: No mouth sores, no trouble swallowing Cardiac: No chest pain no palpitations Pulmonary: Denies cough + shortness of breath, no wheezing Abdomen: No pain, no nausea vomiting, no diarrhea or constipation : No dysuria, or hematuria Musculoskeletal: No arthritis, no myalgias Neurological: No headaches, no focal weakness Skin: chronic wound rt. lower leg/deies worsening pain/swelling or redness. Psychiatric: No anxiety, no depression Exam Vital signs: Temperature 97.1 F 11/26/17 08:00 Pulse Rate 73 11/26/17 08:00 Respiratory Rate 28 H 11/26/17 10:33 Blood Pressure 96/48 11/26/17 08:00 Pulse Oximetry 99 11/26/17 10:33 - Constitutional no acute distress, obese, cooperative - Routine HEENT Exam Head: Present: normocephalic Eye: Present: EOMI ENT: Present: mucous membranes moist - Routine Neck Exam Present: supple. Absent: lymphadenopathy - Routine Respiratory Exam Present: decreased breath sounds. Absent: wheezes, crackles - Routine Cardiovascular Exam Present: RRR, no murmur - Routine Abdominal Exam Present: soft, normoactive bowel sounds. Absent: mass - Routine Extremities Exam Present: edema, full ROM - Routine Skin Exam Present: dry, wounds (chronic erythema/swelling right LE; appears lessended. No open areas noted) - Routine Neurological Exam Present: alert, oriented X3 - Routine Psychiatric Exam Present: normal affect, cooperative Oncology Results - Labs CBC & Chem 7: 11/25/17 04:51 11/25/17 04:51 Assessment and Plan Assessment and Plan: 1. Lung nodules of uncertain etiology. Comorbid conditions severely limited ability to evaluate. Because of severe COPD needle biopsy would be with significant risk. PET scan would be the only option to evaluate disease and significant finding area that could be safely biopsied. Will await improvement in respiratory status to where that he could lay flat and be able to tolerate PET scan 2. Deep venous thrombosis with chronic venous insufficiency and lower extremity edema. Status post IVC filter and currently on Elaquis. Remains stable 3. Atrial fibrillation with controlled rate 4. Renal insufficiency, chronic. Creatinine slightly improved today at 2.2. 5. COPD, on continuous O2. Recommendations: Plan follow-up at [facility] as outpatient. Discussed with patient. Patient states " I cannot come to an appointment in the morning. It has to be in the afternoon." Follow-up with Dr. Davis next week with CBC, CMP , magnesium, LDH. Informed patient to come 1 hour before scheduled appointment for lab draw. Acknowledges/states, " Just put it all on paper for me." Has no further questions. Discussed f/u recommendations w/ Lucinda Pugh APRN - Time Spent With Patient Total time spent is greater than 50% in coordination of care (as documented) at patient's floor/unit and/or counseling patient: 25 - 35 minutes
--- NOTE | 2017-11-26 15:40 | Discharge Summary ---
Discharge Information Date of admission: 11/15/17 16:58 Anticipated date of discharge: 11/26/17 Attending Physician: Bob Zurita MD Primary care physician: Otto Pinedo Consults: Physician Consult: Sadiq Dhaliwal Reason For Exam: pulmonary nodules Physician Consult: Hector Davis Reason For Exam: pulmonary nodules-h/o prostate, colon cancer Physician Consult: Sadiq Pedersen Reason For Exam: DVT/PE despite anticoagulation Physician Consult: Joey Crenshaw Reason For Exam: soa, PT/OT - Discharge Diagnosis (1) Acute on chronic respiratory failure with hypoxia and hypercapnia Status: Acute Discharge diagnosis Acute respiratory failure with hypoxia Pulmonary embolism-right middle and lower lobes (despite chronic anticoagulation with warfarin and current INR of 5.3) Associated conditions and complications IVC filter placement 11/[address] Pedersen Nonocclusive DVT - right superficial femoral vein-DVT originally identified VCSF several weeks ago Left upper lobe pulmonary nodules - suspicious for metastatic disease Cellulitis right lower extremity COPD-chronic O2 - w/ possible exacerbation Chronic respiratory failure with hypoxia-home Trilogy CHF - Chronic diastolic heart failure. Hypertension Valvular heart disease-moderate (based on echo 08/15) Stage III Chronic Kidney Disease Paroxysmal atrial fibrillation with chronic anticoagulation with warfarin Supratherapeutic INR (POA) - resolved Osteoarthritis History of prostate cancer - treated with radiation History of colon cancer-with surgical excision History of tobacco addiction-quit one month ago History of TIA GERD Urethral stricture Chronic lymphedema AAA, 3 cm Normocytic anemia-POA (Labs done 10/26/17: Fe 40, TIBC 323, Sat 12%, transferrin 217, ferritin 30, B12 1452, folate 13.1). Anemia likely chronic ds and chronic blood loss secondary to anticoagulation Transfusion 1U PRBC 11/21. Constipation Obesity with BMI 32.6 - Procedures Procedures: DATE OF OPERATION: 11/21/2017 SURGEON: Sadiq Pedersen MD PREOPERATIVE DIAGNOSES 1. Right-sided pulmonary emboli despite Coumadin anticoagulation. 2. Right lower extremity DVT. POSTOPERATIVE DIAGNOSES 1. Right-sided pulmonary emboli despite Coumadin anticoagulation. 2. Right lower extremity DVT. PROCEDURES 1. Selective catheter placement from the right internal jugular to the inferior vena cava with sonographic and fluoroscopic guidance. 2. Inferior vena cavogram. 3. Placement of inferior vena cava filter. DATE OF PROCEDURE: 11/21/2017 PROCEDURE PERFORMED: Transthoracic echocardiography, M-mode assessment, full color Doppler assessment. FINDINGS 1. LEFT VENTRICLE: Left ventricle appears normal in size. Normal left ventricle wall thickness noted. Normal left ventricular systolic function. Estimated LVEF is 60%-65%. No significant regional wall motion abnormalities noted. Grade 2 diastolic dysfunction noted. 2. RIGHT VENTRICLE: Right ventricle appears normal in size. Normal right ventricular wall thickness noted. Normal right ventricle systolic function noted. 3. RIGHT ATRIUM: Right atrium is mildly enlarged. 4. LEFT ATRIUM: Left atrium is moderately enlarged. 5. MITRAL VALVE: There is moderate mitral annular calcification noted. No significant mitral stenosis noted. Mild mitral regurgitation noted. 6. AORTIC VALVE: Aortic valve appears trileaflet. There is moderate leaflet calcification noted. Reduced systolic excursion of the aortic leaflets noted. On Doppler assessment [id number]-movlnnvt aortic stenosis noted. Transaortic velocity is 2.5 constituting a peak gradient of 25 mmHg and mean gradient of 13 mmHg. Calculated aortic valve about 1.8 mm2. Due to limited windows aortic stenosis severity by Doppler could be underestimated on today's study. No significant aortic regurgitation noted. 7. TRICUSPID VALVE: Appears structurally normal. There is mild tricuspid regurgitation noted. 8. PULMONIC VALVE: Pulmonic valve poorly visualized on today's study. 9. IVC appears normal in size. Normal respirophasic variations noted. 10. PULMONARY ARTERY: Estimated pulmonary artery systolic pressure 35-40 mmHg. CONCLUSION 1. Normal left ventricular systolic function. Estimated LVEF 60%-65%. 2. Normal RV systolic function. 3. Trivial mitral regurgitation. 4. Igxk-it-cnjgsrnm aortic stenosis noted. 5. Estimated pulmonary artery systolic pressure 35-40 mmHg. TRANSFUSION: 1 unit pRBC transfused on 11/21/17 - Laboratory Labs: Admit Lab 11/15/17 13:33 WBC 5.9 Hgb 9.2 L Hct 30.5 L MCV 87.9 Plt Count 255 Neut % (Auto) 66.3 H Lymph % (Auto) 13.6 L [place] % (Auto) 13.1 H Eos % (Auto) 6.4 H Baso % (Auto) 0.3 Admit INR 11/15/17 13:33 INR 5.39 H* Admit Lab 11/15/17 13:33 Sodium 144 Potassium 4.6 Chloride 105 Carbon Dioxide 28 Anion Gap 11 BUN 23.0 H Creatinine 1.3 GFR Calculation 53 BUN/Creatinine Ratio 18 Glucose 113 H Calculated Osmolality 282 H Calcium 9.0 Total Bilirubin 0.60 AST 17 ALT 14 Alkaline Phosphatase 82 Troponin I 0.079 NT-Pro-B Natriuret Pep 1640 H Total Protein 6.7 Albumin 3.9 Globulin 2.8 Albumin/Globulin Ratio 1.4 Laboratory Tests 11/16/17 11/16/17 04:28 04:28 Carcinoembryonic Ag 8.05 H Prostate Specific Ag 0.2 TSH 0.90 11/25/17 04:51 11/25/17 04:51 - Microbiology Microbiology 11/15/17 14:13 Peripheral/Iv Start Blood Culture - Final No Growth After 5 Days 11/15/17 14:19 Peripheral/Iv Start Blood Culture - Final No Growth After 5 Days 11/15/17 15:08 Urine, Voided (Cc/notcc) Urine Culture - Final No Growth After 2 Days - Radiology Radiology: Date of Exam: 11/15/17 Type of Exam: US venous Doppler LE RT Findings: There is nonocclusive deep vein thrombosis seen in the right superficial femoral vein. This is predominantly peripherally positioned and could be subacute to chronic. The common femoral and popliteal veins are patent and compressible. Subcutaneous edema noted in the calf. Serial graded compression was performed from the inguinal ligament to the popliteal bifurcation, on the right thigh. In addition, color and pulsed Doppler was performed along with calf compression. At the ankle, normal flow is identified in the posterior tibial veins; these vessels are also normal in caliber. Impression: Nonocclusive DVT in the right superficial femoral vein could be chronic based on its morphology although this cannot be determined with certainty without comparison. - Date of Exam: 11/15/17 Type of Exam: CT angio pulm emboli Findings: Pulmonary arteries: Contrast bolus and respiratory motion artifact limits the exam. Exam is diagnostic to the segmental pulmonary arterial level. There are segmental and subsegmental filling defects noted in the right middle and right lower lobe. Other findings: No gross pneumothorax. 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 No focal pneumonia. There is a new irregular 1.5 cm left upper lobe nodule on axial image number 29. Irregular spiculated left upper lobe nodule on image #12 measuring 2.5 cm in diameter. Small left pleural effusion is new. No axillary adenopathy. Slight interval enlargement in left paratracheal nodes. The most prominent on axial image #34 measures 1.7 cm in short axis. Heart size is enlarged but unchanged. No pericardial effusion. The upper abdomen shows no acute findings. Impression: Limited exam due to severe motion artifact. 1. Right-sided pulmonary emboli. 2. Left upper lobe pulmonary nodules suspicious for metastatic disease. Date of Exam: 11/16/17 Type of Exam: CT abdomen pelvis wo con Findings: Small left pleural effusion. Evaluation of the solid organs is limited without IV contrast. No contour deforming liver mass or gross bile duct dilatation. Vicarious excretion of contrast by the gallbladder. Small hiatal hernia. The spleen is normal. Fatty replaced pancreas. Pneumobilia in the common duct. Recommend correlation for prior ERCP. Superior pole right renal cyst. Bilateral renal vascular calcifications. Left renal cysts with the largest measuring 4.2 cm in diameter. Scattered arterial atherosclerotic plaque. Focal 3 cm abdominal aortic aneurysm just below the renal arteries extending for 2-cm craniocaudally. No abdominal or pelvic lymphadenopathy. Bladder is decompressed by a Siddiqui catheter with gas and contrast material present. No free fluid. No evidence of a bowel obstruction. Prior right hemicolectomy. Bone windows show degenerative change in the lumbar spine. Chronic T12 compression fracture. Impression: 1. No findings to suggest metastatic disease in the abdomen or pelvis. 2. 3 cm abdominal aortic aneurysm. At this size follow-up is recommended in three years. Date of Exam: 11/16/17 Type of Exam: XR chest post-procedure 1V Findings: Right PICC line loops within a vein in the right axillary region. Tip projects over the mid axillary area. Overlying monitoring leads. Increased interstitial markings and both lungs. Cardiac silhouette is grossly stable allowing for differences in rotation. Left upper lobe nodule is better seen on recent chest CT. Impression: Right PICC line tip projects over the right axillary area. Recommend repositioning or replacement. Date of Exam: 11/16/17 Type of Exam: FL guided PICC insertion PICC LINE INSERTION/REPOSITIONING: The patient arrived in the imaging department with a right-sided PICC line in place. Fluoroscopic imaging showed the tip of the PICC line in the area of the right subclavian vein. Approximately 5 cc of Omnipaque 300 was injected through the PICC line and revealed that the vein was very tortuous and a PICC line would not be able to pass through the vein. It was elected to remove the right-sided PICC line after discussing the findings with the infusion therapy nurse. The patient tolerated this procedure well. He was transferred back to his room on the surgical floor in stable condition. Impression:Unsuccessful attempt at a right-sided PICC line placement in the right cephalic vein. These results were discussed with the infusion therapy nurse immediately following the exam. - Date of Exam: 11/17/17 Type of Exam: XR chest 1V Findings: Right PICC line has been removed. Diffuse interstitial prominence is unchanged in both lungs. Patient is again rotated significantly. No gross pneumothorax or large effusion. Impression: Stable interstitial prominence. Limited exam due to rotation. --- Date of Exam: 11/22/17 Type of Exam: XR chest 2V Findings: Lungs and airways: Normal lung volumes. Patchy airspace consolidation within the right greater than left lower lung zones. Normal pulmonary vasculature. Pleura: Suggestion of trace pleural effusions on the lateral radiograph. No pneumothorax. Heart and mediastinum: The cardiomediastinal silhouette and great vessels appear unchanged. Osseous structures and soft tissues: No acute osseous abnormality is seen. Degenerative arthrosis of the shoulders. Likely old right rib fractures. Impression: Patchy airspace consolidation within the right greater than left lower lung zones with suggestion of trace pleural effusions. History of Present Illness HPI: Patient is an 82-year-old male who presents to the ED by EMS for increasing shortness of breath. He lives at home alone and has home health services. Today he reports he was so short of breath just going to and from the bathroom he almost collapsed. [facility] He was started on Levaquin and cephalexin yesterday for cellulitis of the right lower extremity. He reports he fell approximately 10 days ago. He had been home for only one day after being hospitalized at [facility] for approximately 5-6 days for "breathing problems." He states he was scheduled to follow-up at the heart failure clinic and with several other specialists,but at this point he doesn't want to see any of them. He states he came to our hospital because he is fed up with the [facility]. He has a history of colon cancer 3 years ago and prostate cancer 18 years ago. In the emergency room, CTA chest was performed of his chest which showed a "spiculated mass " suspicious for metastasis and PE. He has a DVT in the right lower extremity, despite taking Coumadin with a current supra therapeutic INR 5.3. He was placed on BiPAP in the emergency room due to his respiratory status. He is typically on 3.5 L of oxygen at home chronically and sleeps with CPAP. States he quit smoking a month ago. For complete details of the H&P refer to that document. Objective Vital signs: Temperature 97.1 F 11/26/17 08:00 Pulse Rate 70 11/26/17 08:00 Respiratory Rate 22 11/26/17 15:05 Blood Pressure 96/48 11/26/17 08:00 Pulse Oximetry 95 11/26/17 15:05 Rhythm: Atrial Fibrillation with Normal Ventricular Rate Height/Weight/BMI: Height 1.88 m Weight 108.1 kg Hospital Course This is a general summary of the patient's hospital course. For more details refer to the complete medical record. Hospital course: 11/15/17 Admit, inpatient. Expect stay to exceed 2 overnights given severity of his respiratory failure requiring BiPAP and further workup given his new findings of pulmonary nodules. Start heparin drip for PE/DVT, suspect patient may have warfarin resistance. Pharmacy to manage. Pt was DC'd from [facility] on apixaban but states he didn't take it due to cost. BiPAP/Vapotherm PRN. DuoNeb's 4 times a day. Budesonide BID. (On documentation from [facility], Advair and Spiriva are listed as outpatient pulmonary meds) Continue home Bumex 1mg BID for CHF. Daily weights and I&O's. Consult Dr. Dhaliwal and Dr Davis/Elamin regarding pulmonary nodules. Consult Dr. Pedersen re: placement of angela filter. Vancomycin for tx of cellulitis. Pharmacy to manage. Heparin for VTE treatment/prophylaxis. Avoid SCDs given his significant extremity cellulitis. Check TSH, CEA, PSA and repeat BMP and CBC in am given his h/o colon and prostate cancer and to follow electrolytes, renal function and blood counts. Pantoprazole for GERD and GI prophylaxis. DNR. Daughter Shayna (lives in [place]) is patient's DPOA-H. PCP-Otto Pinedo 11/16/17 CEA elevated, PSA nl. Dr Mercer consulted and recommended CT abd/pelvis which showed no evidence for mets. Recommends OP PET scan. Currently on 5L O2 per nasal canula. Requires BiPAP at night and prn. Hgb dropped from 9.2 to 7.6 this am. Repeat hgb this afternoon was 8.0. Repeat in am. Pt continues on vancomycin (Day2) for cellulitis. Tmax 100.2 this am at 0746. Cont Heparin for VTE treatment/prophylaxis. Once INR normalizes, Dr. Pedersen will consider placement of Angela filter. 11/17/17 Vancomycin day #3 for cellulitis. White count has been normal throughout his stay. No further fevers. Hemoglobin lower again today. 9.2--7.6--8.0--7.6. Follow closely. Patient had B12/folate and iron studies performed during recent hospitalization in [place]. Likely has chronic blood loss secondary to anticoagulation. Weight is up 2.5kg since admission. CXR suggestive of pulmonary edema. Give additional 1mg Bumex IV. Creatinine has progressively worsened. 0.3--1.6--1.7. Will see if this improves with diuresis. Levsin added for bladder spasm. Vancomycin level being checked this evening-may require dose adjustment with slight increased creatinine. 11/18/17 Vancomycin day #4 for cellulitis. White count has been normal throughout his stay. No further fevers. Add Cipro for gram-negative coverage-patient reports he is tolerated this well previously. Hgb improved to 8.0. INR down to 2.8; poss [place] placement when INR is subtherapeutic. Continue heparin gtt as INR drifts down. Diuresed yesterday with Bumex IV x1. Weight is down 3 kg and creatinine improved to 1.6. Continue oral Bumex. Mg stable at 1.7. 11/19/17 Vancomycin day #5, Cipro day #2 for cellulitis. Hgb 8.0-->7.4. Continue to monitor. INR 2.18 today. Kidney function continues to improve 1.7-->1.6-->1.5. Suspect improvement related to increased diuresis. Zaroxolyn 5 mg po given this morning, will continue Bumex 1 mg by mouth twice a day. Currently on Vapotherm with O2 flow rate 37 L/min. 11/20/17 Vancomycin day #6, Cipro day #3 for cellulitis. White count has been normal throughout his stay. No further fevers. Hgb 8.0-->7.4-->7.6. Continue to monitor. Magnesium low - IV replacement given and started on 400mg BID po. INR 1.65 today- poss IVC placement tomorrow by Dr. Pedersen. Continues on heparin gtt. Dr. Pedersen indicated he would put in the orders for NPO and holding the Heparin. Currently on Vapotherm with O2 flow rate 25 L/min, down from 37. Diamox given x 1 for hypercapnia. 11/21/17 Vancomycin day #7, Cipro day #4 for cellulitis. White count normal. Hgb 8.0-->7.4-->7.6-->7.5. Given his SOA and CHF, will transfuse 1U PRBC's. Lasix x1 following transfusion. INR 1.41 today- IVC filter placement planned today by Dr. Pedersen. Continues on heparin gtt. (Holding before procedure.) Creatinine up 1.5-->1.8. Currently on Bumex 1 mg by mouth twice a day. Currently on Vapotherm with O2 flow rate 25 L/min. FiO2 40%. Echo and consult Dr. Crenshaw re: CHF/SOA. Diamox given x 1 for hypercapnia. Patient continues with Siddiqui. Continue for diuresis and accurate I&O. Levsin for bladder spasms. 11/22/17 Vancomycin day #8 - can discontinue. Continue Cipro day #5 for cellulitis. White count normal. IVC filter placement 11/[address] Pedersen. On Eliquis 10mg bid x 7 d then 5mg bid. Creatinine up 1.5-->1.8-->2.2. Could be up in response to contrast used with placement of filter. BMP in am. Follow hgb - 1U PRBC's 11/21. Hgb 8.8 today. Start bladder training. Hope to DC cath later today or tomorrow. Dr Crenshaw rec OP WENDY and RHC. Continue Bumex. No sign of acute CHF. Discussed with pt he needs to work with PT/OT if he wants to return home. He agreed to work with them this afternoon. 11/23/17 Continues on day 6 of clindamycin for tx of cellulitis. Unfortunately Ct continues to trend up 1.5-->1.8-->2.2 -->2.4 today. Will hold Bumex. Continue to work on weaning down oxygen. Hgb stable at 8.7. Attempted to do bladder retraining however pt c/o ureteral pain - will discontinue Siddiqui. IVC filter placement 11/[address] Pedersen. On Eliquis 10 bid. Decrease to 5mg bid on 11/28. PT/OT if he wants to return home - Discussed with CM. 11/24/17 Continues on day 6 of CIPRO for treatment of suspected cellulitis to right lower extremity. SCr remains elevated above base line but trending down; 1.5-->1.8-->2.2 -->2.4-- >2.3 today. Will continue to monitor closely. Patient breathing easily on baseline oxygen at 3L. Continue to work on weaning down as able. Bumex remains on hold given renal function. Monitor closely for signs of fluid overload. Weight down since admission. Hgb stable at 8.5. Continue to monitor closely as trending down slowly. No signs of acute bleeding. Consider attempting to do bladder retraining again today - he complained of ureteral pain yesterday. Patient complains of right calf pain with increased size as compared to left. US on 11/15/17 revealed nonocclusive DVT in right superficial femoral vein. Recheck labs in AM to monitor blood counts, electrolytes and renal function. 11/25/17 Overall, doing well. Anticipate discharge in the near future, hopefully today. Continues on day 7 of CIPRO for treatment of suspected cellulitis to right lower extremity. SCr stable and trending down, 2.2 today. Will continue to monitor closely. Patient breathing easily on baseline oxygen at 3L. Continue to work on weaning down as able. Bumex remains on hold given renal function. Monitor closely for signs of fluid overload. Weight down since admission and remains stable. Hgb trending down slowly (8.8-->8.7-->8.5-->8.2 today). Continue to monitor closely. Patient remains asymptomatic. No signs of acute bleeding. 11/26/17 Clinically doing well. Breathing on baseline O2. Creatinine stable at 2.2. Weight stable. Eating well. Strength at baseline. Will discharge to home. Home Health arrangements made with [facility]. Low sodium diet. Activities as tolerated. Recommend elevation of LE when at rest - elevate as much as able. Continue with ciprofloxacin 500mg BID for 7 more days for skin coverage. Stress the importance of elevation of legs and compression to help decrease edema. Eliquis 10mg BID for 4 more doses, then can decrease to 5mg BID. Coumadin stopped during hospitalization. Would decrease Bumex to 1 mg daily to help control volume. F/U with Otto Pinedo in 1 week - would recommend rechecking BMP at that time. Will need outpatient follow up with: Dr Dhaliwal for pulmonary care. Dr Davis for oncological care. Dr Crenshaw for cardiovascular care. See orders for details. Time spent with patient: discharge greater than 30 minutes Resuscitation Status: Do Not Resuscitate Discharge Plan - Discharge Disposition Discharge Date: 11/26/17 Disposition: 86 Home Health Service *Condition: Stable Reason For Visit (Visit label in EMR): Right-sided pulmonary embolism - Discharge Medications *Discharge Medications: New Apixaban [Eliquis] 5 mg PO BID #60 tab Bisacodyl EC TAB [Dulcolax] 10 mg PO DAILY PRN tab PRN Reason: Constipation Ciprofloxacin [Cipro 500 mg] 500 mg PO BID #14 tab PEG 3350 17gm PACKET [Miralax] 17 gm PO DAILY packet Sennosides [Senna Lax] 17.2 mg PO BID tab Apixaban [Eliquis] 10 mg PO BID #4 tab Bumetanide Tab [Bumex 1 mg Tab] 1 mg PO DAILY #30 tab Continue Tamsulosin [Flomax] 0.4 mg PO HS Cyanocobalamin (Vitamin B-12) [Vitamin B-12] 1,000 mcg PO DAILY Pantoprazole Tab [Protonix Tab] 40 mg PO BID Acetaminophen [Tylenol] 1,000 mg PO Q5H PRN PRN Reason: Pain Multivit-Min/FA/Lycopen/Lutein [Centrum Silver Tablet] 1 each PO DAILY Loratadine 10 mg PO DAILY Glucosamine 500 mg PO DAILY Ascorbate Calcium [Vitamin C] 500 mg PO DAILY Tramadol [Ultram] 50 mg PO Q8H PRN PRN Reason: Pain Albuterol Sulfate [Proair Hfa] 1 puff INH Q4H PRN #0 PRN Reason: Prn Orders Discontinued CephALEXin [Keflex 250 mg] 250 mg PO TID Levofloxacin [Levaquin] 500 mg PO DAILY Warfarin Sodium 5 mg PO DAILY #0 Bumetanide Tab [Bumex 1 mg Tab] 1 mg PO BID - Discharge Packet/Instructions *Diet: Low sodium diet. No not add salt to foods. Avoid salty foods. 2 quarts of water a day is reasonable intake. *Activity: As tolerated. Please elevate legs as much as possible and as often as possible to help decrease swelling. *Pain Management/Treatment: Tylenol as needed for pain. *Wound Care: n/a Additional Instructions: You will need to take 10mg of Eliquis for 4 more doses (take twice a day). Then evening dose on 11/28/17 will be the first time you take 5mg. Eliquis is used in place of warfarin (Coumadin) - do NOT take warfarin ( Coumadin) with Eliquis. Eliquis is taken twice a day - both in the 10mg and 5mg strenghts. Continue ciprofloxacin (Cipro) 500mg twice a day for 1 week to continue treatment for cellulitis of your leg. Use bumetidine (Bumex) 1mg once a day to help control volume and leg swelling. Your bowels were moving very slowly durinig the hosipitalization. We were using Miralax 17g daily along with Senna twice a day to help your bowels move. You may continue with medications ( decreasing if stools become more frequent or loose). Miralax and Senna are available over the counter. Please elevate your legs as much as possible to help decrease swelling. Compression can also help - CORINNE hose or MARIA INES wraps. Use O2 at 3.5L all the time. Wear your BiPAP at home. *Expected Signs/Symptoms: Stability of breathing. Gradual decrease of swelling and redness to your right leg. With a blood clot in your right leg, the swelling may never completely resolve. *Notify Physician if: Temp >100.4. Increasing shortness or breath, pain with breathing, chest pain, uncontrolled bleeding, passing dark tarry or black bowel movements, or any worrisome problems. *During Business Hours Contact: Otto Pinedo *After Business Hours Contact: [place] [facility] [place] have [place] care provider contacted. *Pending Lab/Results: No Pending Lab - Referrals/Follow Up *Referrals/Follow Up: Sadiq Dhaliwal MD [Physician] - 12/06/17 3:00 pm (Pulmonary evaluation and care. ) Hector Davis MD [Physician] - 12/06/17 1:30 pm (Oncological follow up for further testing. ) Otto Pinedo PA [Physician] - 12/04/17 9:00 am (Hospital follow up - DVT/PE - - Coumadin changed to Eliquis. Recommend recheck BMP secondary to medication use. ) Joey Crenshaw MD [Physician] - 12/12/17 1:50 pm (Cardiac follow up) - Patient Handouts Patient Handouts: Inferior Vena Cava Filter Placement (DC), Blood Transfusion Reactions (DC) - Dismissal Complete Discharge Instructions are:: Complete Physician Narrative - Narrative Physician: Bob Zurita MD Attestation Narrative: Date: 11/26/17 Time: 153 I have independently interviewed and examined patient prior to discharge. See my progress note for details. Medically stable for discharge to home.
[2017-11-26 16:25] VITALS: BP 125/66; PULSE 86; TEMP 97.4; O2SAT 100
[2017-11-26 18:13] VITALS: RESP 18
[2017-11-28] MEDS ORDERED: APIXABAN 5 MG TABLET PO SCH (21:00)
== END 2017-11-26 17:50 | disposition home health service (06) | DRG 166 ==
LOC: ED 13:24 → EDHOLD 16:58 → SUATTDRO 16:58 → SRG 17:28
PROVIDERS: ADMIT Internal Medicine; ATTEND Hospitalist